=== PATIENT | female | born 1980 | race Caucasian/White ===

== ENCOUNTER → 2016-10-07 | Outpatient (CLI) | payer OTHER ==
[~2016-10-07] MED LIST: ALPR.5T PO; AMIT10TA6 PO; AMIT25TA9 PO; AZIT-21 PO; CPR500T PO; DCS100C PO; HYDR-34 PO; HYDR-3454 PO; HYDR1CAP2; HYDR1TAB PO; IBP600T1 PO; [UNRECOGNIZED DRUG - REMARK] PO
--- NOTE | 2016-10-07 18:32 | Diagnostic Imaging Report ---
INDICATION: Hit door with wrist. History of previous surgery. TECHNIQUE: Three views of the left wrist. CORRELATION STUDY: None FINDINGS: There is diffuse bony demineralization for the patient's age. There is very questionable distortion at the level of the trapezium and trapezoid at the first and second carpometacarpal articulation. Remaining alignment appearing unremarkable. IMPRESSION: 1. Negative for acute bony abnormality about the left wrist. Mild diffuse bony demineralization. Very slight distortion suggested about the first and second carpometacarpal articulations, may be chronic in nature. Dictated by: Dictated on workstation # [id number]
== END ==
LOC: RAD 17:14
PROVIDERS: ATTEND Family Medicine
DX: S60.212A Contusion of left wrist, initial encounter (principal); X58.XXXA Exposure to other specified factors, initial encounter; Y99.8 Other external cause status
CPT/HCPCS: 73110

== ENCOUNTER → 2017-01-15 | Outpatient (CLI) | payer OTHER ==
--- NOTE | 2017-01-15 13:02 | Diagnostic Imaging Report ---
PROCEDURE: MRI lumbar spine. TECHNIQUE: Multiplanar, multisequence MRI of the lumbar spine was performed without contrast. INDICATION: Back pain. FINDINGS: There is straightening of the thoracolumbar junction and lumbar spine curvature which may relate to muscle spasm. The alignment of the posterior spinal line is satisfactory. The vertebral body heights are preserved. There is mild disc desiccation at the L5/S1 level. The cauda equina and conus medullaris appear grossly unremarkable. There is normal marrow signal in the spine. There are perineural cysts seen at the lower thoracic and lumbar spine neural foramina along the exiting spinal nerves up to a centimeter in size. Also, perineural cysts are seen along the exiting nerve roots in the S1 and S2 foramina. 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 T12/L1: No disc herniation, no spinal canal or foraminal stenosis. L1/2: No spinal canal, or foraminal stenosis. L2/3: No disc herniation. There is mild facet hypertrophy. No central canal, lateral recess or foraminal stenosis. L3/4: No disc herniation. There is mild facet hypertrophy. No central canal, lateral recess or foraminal stenosis. L4/5: There is no disc herniation. There is mild facet hypertrophy. No central canal, lateral recess or foraminal stenosis. L5/S1: No disc herniation. There is slight ligamentous flavum thickening. No central canal, lateral recess or foraminal stenosis. IMPRESSION: 1. There is straightening of the spine curvature suggestive of muscle spasm. 2. There are bilateral perineural cysts seen along the exiting nerves at the foramina in the lower thoracic, the lumbar spine and upper sacral spine levels, generally around 1 cm in size. 3. There is no significant spinal canal or neural foraminal stenosis at any level. Dictated by: Dictated on workstation # [id number]
== END ==
LOC: RAD 11:00
PROVIDERS: ATTEND Family Medicine
DX: G96.19 Other disorders of meninges, not elsewhere classified (principal); M54.40 Lumbago with sciatica, unspecified side; G89.29 Other chronic pain
CPT/HCPCS: 72148

== ENCOUNTER → 2017-04-10 | Outpatient (CLI) | payer OTHER ==
--- NOTE | 2017-04-10 17:26 | Diagnostic Imaging Report ---
Three views of the left ankle. INDICATION: Left ankle pain. FINDINGS: No fracture, dislocation, or radiopaque foreign body is seen. The ankle mortise is normal in configuration. There is mild spur along the undersurface of the calcaneus. IMPRESSION: No acute process. Dictated by: Dictated on workstation # [id number]
== END ==
LOC: RAD 12:47
PROVIDERS: ATTEND Nurse Practitioner Family
DX: M25.572 Pain in left ankle and joints of left foot (principal)
CPT/HCPCS: 73610

== ENCOUNTER 2017-04-24 13:45 | Outpatient (RCR) | payer OTHER | END 2017-04-24 14:25 | disposition home or self-care (01) | PROVIDERS: ATTEND Physician Assistant | DX: M54.5 Low back pain (principal) ==

== ENCOUNTER 2017-08-20 13:00 | Outpatient (CLI) | payer OTHER ==
[~2017-08-20] VITALS: Ht 170.2 cm; Wt 54.6 kg
[2017-08-20] MEDS ORDERED: GABA-488 PO (13:05)
[2017-08-20] MEDS ORDERED: MELO7.5T46 PO (13:05)
[2017-08-20] MEDS ORDERED: ALPR0.5T PO (13:05)
[2017-08-20] MEDS ORDERED: AMPH20TA2 PO (13:05)
== END 2017-08-20 13:13 ==
LOC: PREOP 13:00
PROVIDERS: ATTEND Surgery
DX: Z01.818 Encounter for other preprocedural examination (principal); Z12.11 Encounter for screening for malignant neoplasm of colon; Z80.0 Family history of malignant neoplasm of digestive organs

== ENCOUNTER 2017-11-04 12:34 | Emergency (ER) | payer BC, OTHER ==
[~2017-11-04] VITALS: Ht 170.2 cm; Wt 55.3 kg
[~2017-11-04 12:34] MED LIST changes: +ALPR0.5T PO; +AMPH20TA2 PO; +GABA-488 PO; +MELO7.5T46 PO
[2017-11-04] MEDS ORDERED: NS IV 1000 ML 1,000 ML IV ONE (12:39)
[2017-11-04 12:54] LABS: BASOPHILS % (AUTO) 0 % (0-10); EOSINOPHILS % (AUTO) 0 % (0-10); HEMATOCRIT 40 % (35-52); HEMOGLOBIN 13.4 G/DL (11.5-16.0); LYMPHOCYTES # (AUTO) 1.5 X 10^3 (1.0-4.0); LYMPHOCYTES % (AUTO) 10 % (12-44); MEAN CORPUSCULAR HEMOGLOBIN 31 PG (25-34); MEAN CORPUSCULAR HGB CONC 34 G/DL (32-36); MEAN CORPUSCULAR VOLUME 92 FL (80-99); MEAN PLATELET VOLUME 8.7 FL (7.4-10.4); MONOCYTES # (AUTO) 1.4 X 10^3 (0.0-1.0); MONOCYTES % (AUTO) 9 % (0-12); NEUTROPHILS # (AUTO) 12.2 X 10^3 (1.8-7.8); NEUTROPHILS % (AUTO) 81 % (42-75); PLATELET COUNT 353 10^3/uL (130-400); RED BLOOD COUNT 4.34 10^6/uL (4.35-5.85); RED CELL DISTRIBUTION WIDTH 14.9 % (10.0-14.5); WHITE BLOOD COUNT 15.2 10^3/uL (4.3-11.0)
[2017-11-04 13:13] LABS: ALANINE AMINOTRANSFERASE 56 U/L (0-55); ALBUMIN 4.3 GM/DL (3.2-4.5); ALKALINE PHOSPHATASE 85 U/L (40-136); BILIRUBIN,TOTAL 0.4 MG/DL (0.1-1.0); BUN/CREATININE RATIO 15; CALCIUM 9.4 MG/DL (8.5-10.1); CARBON DIOXIDE 27 MMOL/L (21-32); CHLORIDE 101 MMOL/L (98-107); CREATININE SERUM 0.67 MG/DL (0.60-1.30); GFR ESTIMATED > 60; GLUCOSE 112 MG/DL (70-105); POTASSIUM 3.6 MMOL/L (3.6-5.0); SODIUM 138 MMOL/L (135-145); TOTAL PROTEIN 6.8 GM/DL (6.4-8.2)
[2017-11-04 13:18] LABS: ERYTHROCYTE SEDIMENTATION RATE 17 MM/HR (0-20)
[2017-11-04 13:21] LABS: LYMPHOCYTES % (MANUAL) 8 %; MONOCYTES % (MANUAL) 7 %; NEUTROPHILS % (MANUAL) 82 %; RBC MORPH NORMAL; REACTIVE LYMPHOCYTES 3 %
[2017-11-04] MEDS ORDERED: fentaNYL INJECTION 100 MCG/2 ML AMP ONE (13:51)
[2017-11-04] MEDS ORDERED: fentaNYL INJECTION 100 MCG/2 ML AMP IVP ONE ×2 (14:00→16:00)
--- NOTE | 2017-11-04 14:19 | ED Headache ---
General Chief Complaint: Head/Cervical Problems Stated Complaint: MIGRAINE,SPINAL BLOCK LAST Nursing Triage Note: PT AMBULATED TO ROOM 9 PT CO OF MIGRAINE CRABTREE X4 DAYS, PT STATES HAD EPIDURAL INJ LAST FRIDAY, RATES CRABTREE 8.5/10. DENIES NAUSEA, STATES A LITTEL BETTER WHEN LYING DOWN Nursing Sepsis Screen: No Definite Risk Source: patient History of Present Illness Date Seen by Provider: Nov 04, 2017 Time Seen by Provider: 12:00 Initial Comments To ER with a frontal and parietal headache. This began after a lumbar epidural injection by Dr. Richardson, pain management due to some sciatic pain that she was having. This injection occurred on of last week, 5 days ago. She reports a fever up to 100.2 at home. 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 No low back pain, no radicular symptoms, no saddle anesthesia. Timing/Duration: other (2-3 days) Severity/Quality: moderate Location: frontal, parietal Associated Symptoms: No confusion, No fatigue; fever/chills, stiff neck Allergies and Home Medications Allergies Coded Allergies: Penicillins (Unverified Allergy, Unknown, 08/20/17) sulfamethoxazole (Unverified Allergy, Unknown, HIVES, 08/20/17) trimethoprim (Unverified Allergy, Unknown, HIVES, 08/20/17) Home Medications Alprazolam 0.5 Mg Tablet, 0.5 MG PO PRN, (Reported) Dextroamphetamine/Amphetamine 20 Mg Tablet, 20 MG PO BID, (Reported) Gabapentin 300 Mg Capsule, 300 MG PO HS, (Reported) Meloxicam 7.5 Mg Tablet, 7.5 MG PO BID, (Reported) Patient Home Medication List Home Medication List Reviewed: Yes Review of Systems Constitutional: see HPI, chills, fever Eyes: No Symptoms Reported Ears, Nose, Mouth, Throat: no symptoms reported Respiratory: no symptoms reported Cardiovascular: no symptoms reported Genitourinary: no symptoms reported Musculoskeletal: neck pain Skin: no symptoms reported Past Ehwpmsb-Qawkwk-Wprpfx Hx Patient Social History Alcohol Use: Occasionally Uses Recreational Drug Use: No Smoking Status: Current Everyday Smoker Type Used: Cigarettes Recent Foreign Travel: No Contact w/Someone Who Travel: No Recent Infectious Disease Expo: No Recent Hopitalizations: No Immunizations Up To Date Tetanus Booster (TDap): Unknown Seasonal Allergies Seasonal Allergies: Yes Past Medical History Surgeries: Yes (HERNIA REPAIR, TENDON IN WRIST) Gallbladder, Hysterectomy, Tonsillectomy Respiratory: Yes Sleep Apnea Cardiac: No Neurological: Yes Headaches /Migraines 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 Disorders: No Female 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 Disorders: 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 Sexually Transmitted Disease: No HIV/AIDS: No Kidney Stones Gastrointestinal: No Musculoskeletal: Yes Arthritis, Chronic Back Pain Endocrine: No Loss of Vision: Bilateral Hearing Impairment: Denies Cancer: No Psychosocial: Yes Anxiety, Depression Integumentary: No Blood Disorders: No Adverse Reaction/Blood Tranf: No (N/A) Physical Exam Vital Signs Vital Signs - First Documented 11/04/17 12:40 Temp 98.5 Pulse 111 Resp 18 B/P (MAP) 136/89 (105) Pulse Ox 98 O2 Delivery Room Air Capillary Refill : Less Than 3 Seconds General Appearance: WD/WN, no apparent distress HEENT: PERRL/EOMI, normal ENT inspection Neck: other (able to flex her chin to chest) Cardiovascular: regular rate, rhythm, no murmur Respiratory: no respiratory distress, no accessory muscle use Gastrointestinal: normal bowel sounds, non tender Extremities: normal range of motion Psychiatric: alert, oriented x 3 Crainal Nerves: normal hearing, normal speech, PERRL Skin: normal color, warm/dry Progress/Results/Core Measures Results/Orders Lab Results Laboratory Tests Test 11/04/17 12:48 11/04/17 15:19 Range/Units White Blood Count 15.2 H 4.3-11.0 10^3/uL Red Blood Count 4.34 L 4.35-5.85 10^6/uL Hemoglobin 13.4 11.5-16.0 G/DL Hematocrit 40 35-52 % Mean Corpuscular Volume 92 80-99 FL Mean Corpuscular Hemoglobin 31 25-34 PG Mean Corpuscular Hemoglobin Concent 34 32-36 G/DL Red Cell Distribution Width 14.9 H 10.0-14.5 % Platelet Count 353 130-400 10^3/uL Mean Platelet Volume 8.7 7.4-10.4 FL Neutrophils (%) (Auto) 81 H 42-75 % Lymphocytes (%) (Auto) 10 L 12-44 % Monocytes (%) (Auto) 9 0-12 % Eosinophils (%) (Auto) 0 0-10 % Basophils (%) (Auto) 0 0-10 % Neutrophils # (Auto) 12.2 H 1.8-7.8 X 10^3 Lymphocytes # (Auto) 1.5 1.0-4.0 X 10^3 Monocytes # (Auto) 1.4 H 0.0-1.0 X 10^3 Eosinophils # (Auto) 0.0 0.0-0.3 10^3/uL Basophils # (Auto) 0.0 0.0-0.1 10^3/uL Neutrophils % (Manual) 82 % Lymphocytes % (Manual) 8 % Monocytes % (Manual) 7 % Reactive Lymphocytes 3 % Blood Morphology Comment NORMAL Erythrocyte Sedimentation Rate 17 0-20 MM/HR Sodium Level 138 135-145 MMOL/L Potassium Level 3.6 3.6-5.0 MMOL/L Chloride Level 101 98-107 MMOL/L Carbon Dioxide Level 27 21-32 MMOL/L Anion Gap 10 5-14 MMOL/L Blood Urea Nitrogen 10 7-18 MG/DL Creatinine 0.67 0.60-1.30 MG/DL Estimat Glomerular Filtration Rate > 60 BUN/Creatinine Ratio 15 Glucose Level 112 H 70-105 MG/DL Calcium Level 9.4 8.5-10.1 MG/DL Total Bilirubin 0.4 0.1-1.0 MG/DL Aspartate Amino Transf (AST/SGOT) 24 5-34 U/L Alanine Aminotransferase (ALT/SGPT) 56 H 0-55 U/L Alkaline Phosphatase 85 40-136 U/L C-Reactive Protein High Sensitivity 5.01 H 0.00-0.50 MG/DL Total Protein 6.8 6.4-8.2 GM/DL Albumin 4.3 3.2-4.5 GM/DL Serum Test, Qualitative NEGATIVE NEGATIVE CSF Tube Number 4 CSF Appearance CLEAR CSF Color COLORLESS CSF WBC 1 0-5 CELLS CSF RBC 0 0-0 CELLS CSF Lymphocytes % CSF Mononuclear WBCs % CSF Polynuclear WBCs % CSF Glucose 62 50-80 MG/DL CSF Total Protein 32 15-40 MG/DL My Orders Orders - LEE BOWLES APRN Ct Head Wo (11/04/17 13:51) Fentanyl Injection (Sublimaze Injection (11/04/17 14:00) Hcg,Qualitative Serum (11/04/17 13:51) Csf Cell Count (11/04/17 14:40) Csf Glucose (11/04/17 14:40) Csf Total Protein (11/04/17 14:40) Csf Culture (11/04/17 14:40) Anesthesia Consult (11/04/17 14:40) Lidocaine 1% Inj 20 Ml (Xylocaine 1% Inj (11/04/17 15:09) Ua Culture If Indicated (11/04/17 15:27) General/Regular (11/04/17 Lunch) Fentanyl Injection (Sublimaze Injection (11/04/17 16:00) Ns Iv 1000 Ml (Sodium Chloride 0.9%) (11/04/17 16:07) Medications Given in ED Current Medications Medications Dose Ordered Sig/Regla Route Start Time Stop Time Status Last Admin Dose Admin Fentanyl Citrate 50 mcg ONCE ONCE IVP 11/04/17 14:00 11/04/17 14:01 DC 11/04/17 13:55 50 MCG Fentanyl Citrate 50 mcg ONCE ONCE IVP 11/04/17 16:00 11/04/17 16:01 DC 11/04/17 15:57 50 MCG Lidocaine HCl 20 ml STK-MED ONCE .ROUTE 11/04/17 15:09 11/04/17 15:11 DC 11/04/17 15:33 20 ML Sodium Chloride 1,000 ml @ 0 mls/hr Q0M ONCE IV 11/04/17 12:39 11/04/17 12:41 DC 11/04/17 12:55 1,000 MLS/HR Sodium Chloride 1,000 ml @ ud STK-MED ONCE .ROUTE 11/04/17 16:07 11/04/17 16:09 DC 11/04/17 16:13 1,000 MLS/HR Vital Signs/I&O 11/04/17 12:40 Temp 98.5 Pulse 111 Resp 18 B/P (MAP) 136/89 (105) Pulse Ox 98 O2 Delivery Room Air Blood Pressure Mean: 105 Departure Communication (Admissions) 1509-Dr Adwoa peterson reviewed her records. This was a median nerve branch block done on 10/30. This would make a post dural puncture headache less likely Impression Primary Impression: Headache Additional Impression: Leukocytosis Disposition: 01 HOME, SELF-CARE Condition: Stable Departure-Patient Inst. Decision time for Depature: 16:17 Referrals: KEITH BHARDWAJ MD (PCP/Family) Primary Care Physician Patient Instructions: Headache, Adult (DC) Add. Discharge Instructions: 1. Return to ER for any concerns 2. Headache medication as directed 3. All discharge instructions reviewed with patient and/or family. Voiced understanding. Scripts Butalbital/Aspirin/Caffeine (Fiorinal 50-325-40 mg Capsule) 1 Each Capsule 1 EACH PO Q6H PRN for HEADACHE, #10 CAP Prov: LEE BOWLES APRN 11/04/17 LEE BOWLES APRN Nov 04, 2017 14:18
--- NOTE | 2017-11-04 14:49 | Diagnostic Imaging Report ---
PROCEDURE: CT head without contrast. TECHNIQUE: Multiple contiguous axial images were obtained through the brain without the use of intravenous contrast. INDICATION: Frontal headache. There are no prior studies available for comparison. FINDINGS: There does appear to be a peripheral calcified 1.1 x 1.5 cm soft tissue mass in the region of the pineal. This does not have the typical appearance of pineal calcifications however. Even so, I suspect that this is a benign process such as a calcified pineal cyst or perhaps a calcification of pineal itself. If previous exams are available, they would be helpful for comparison. If there are no prior studies, then MRI would be recommended for further study. There is no other mass lesion identified. There is no shift of midline or hemorrhage. The ventricles are not abnormally dilated. There is mild cortical atrophy involving the frontal lobes. This finding is somewhat unusual in a patient this age but not necessarily abnormal. The bone window show no sign of fracture or destructive lesion. The orbits and sinuses were not visualized in their entirety. Where visualized, there is no acute abnormality. IMPRESSION: 1. There is no acute intracranial abnormality noted. 2. The peripherally calcified soft tissue density within the pineal gland is of uncertain etiology although most likely benign. Recommendations as above. 3. These results were discussed with Lui Wright APRN. Dictated by: Dictated on workstation # [id number]
[2017-11-04] MEDS ORDERED: LIDOCAINE 1% INJ 20 ML 20 ML VIAL ONE (15:09)
--- NOTE | 2017-11-04 15:47 | Anesthesia-Procedure Note ---
Procedures/Interventions Procedure Start/Stop/Diagnosis Date of Procedure: Nov 04, 2017 Start Time: 15:15 Referring Physician: Dr Crook/Lui Wright Preprocedural Diagnosis: Headache, Stiff Neck Brief History Anesthesia Note ([id number]) Called to the ED for a Dx Lumbar Puncture. Pt had a pain injection last week ( ) and has been C/O a headache and stiff neck since the procedure. She also has an elevated WBC count. Lui called Dr Richardson's office and she had a medial branch block done. I spoke to the patient about the possibility of a post -dural puncture headache and need for an epidural blood patch vs doing the Dx Lumbar Puncture. +/- of both procedures discussed with patient and Lui and decision to proceed with the Lumbar Puncture was made. Pt agreed with plan. Consent signed. + clear CSF on first pass with an opening pressure of 17 cm CSF noted. ~ 2-3 mL of CSF x 4 vials sent to lab per Lui Wright' orders. Needle removed and sterile bandage applied. Patient tolerated the procedure well. I discussed with her the need for increased fluids and caffeine if positional headache persists. I also discussed again the epidural blood patch and that her symptoms will need to determine her course of action. She understood and agreed with the plan. Will be available if needed. Stop Time: 15:28 Postprocedural Diagnosis: Same Lumbar Puncture Discussed Risk,Benefits: Yes Patient Consents: Yes Position: L4-5, Left Sterile Technique: Yes (Sterile P/D with ChloraPrep.) Opening Pressure: 17 Fluid Color: Clear Spinal Needle Used: Other (22 G Pencan (pencil-point needle)) BRIELLE RAMIREZ DO Nov 04, 2017 15:47
[2017-11-04 15:51] LABS: APPEARANCE,CSF CLEAR; COLOR,CSF COLORLESS
[2017-11-04 15:52] LABS: CSF TUBE NUMBER 4; RED BLOOD CELL,CSF 0 CELLS (0-0); WHITE BLOOD CELL,CSF 1 CELLS (0-5)
[2017-11-04 16:06] LABS: CSF GLUCOSE 62 MG/DL (50-80); CSF TOTAL PROTEIN 32 MG/DL (15-40)
[2017-11-04] MEDS ORDERED: NS IV 1000 ML 1,000 ML ONE (16:07)
[2017-11-04] MEDS ORDERED: BUTA1CAP17 PO (16:17)
[2017-11-04 17:14] LABS: BILIRUBIN,URINE NEGATIVE (NEGATIVE); CLARITY,URINE CLEAR; COLOR,URINE YELLOW; GLUCOSE, URINE (UA) NEGATIVE (NEGATIVE); KETONES,URINE NEGATIVE (NEGATIVE); LEUKOCYTE ESTERASE ,URINE NEGATIVE (NEGATIVE); NITRITE,URINE NEGATIVE (NEGATIVE); PH,URINE 7 (5-9); PROTEIN,URINE NEGATIVE (NEGATIVE); UROBILINOGEN,URINE NORMAL (NORMAL)
[2017-11-04 17:26] LABS: BACTERIA,URINE TRACE /HPF; WBC,URINE RARE /HPF
[2017-11-04 17:35] VITALS: BP 136/89
== END 2017-11-04 17:31 | disposition home or self-care (01) ==
LOC: EDUNIT# 12:34 → ER 12:37
DX: R51 Headache (principal); D72.829 Elevated white blood cell count, unspecified; G47.30 Sleep apnea, unspecified; F41.9 Anxiety disorder, unspecified; F32.9 Major depressive disorder, single episode, unspecified; F17.210 Nicotine dependence, cigarettes, uncomplicated; Z90.710 Acquired absence of both cervix and uterus; Z90.89 Acquired absence of other organs; Z88.0 Allergy status to penicillin; Z87.442 Personal history of urinary calculi; Z88.2 Allergy status to sulfonamides; Z88.8 Allergy status to other drugs, medicaments and biological substances
CPT/HCPCS: 36415; 70450; 80053; 81000; 82945; 84157; 84703; 85007; 85027; 85652; 86141; 86618; 86666; 86668; 86757; 87070; 87205; 89051; 96361; 96374; 96376

== ENCOUNTER → 2017-11-13 | Outpatient (CLI) | payer BC ==
[~2017-11-13] MED LIST changes: +BUTA1CAP17 PO; +GADOBUTROL 7.5 MMOL/7.5 ML (GADAVIST) VIAL IV ONE
--- NOTE | 2017-11-13 12:42 | Diagnostic Imaging Report ---
CLINICAL INDICATION: Patient has frontal pain, nausea and vomiting. Possible pineal gland mass. EXAMINATION: MRI of the brain performed without and with 5 cc of Gadavist IV contrast. Sequences include axial DWI, ADC map, axial gradient echo, axial T2, axial FLAIR, axial T1, axial T1 post IV contrast, coronal T1 fat-sat post IV contrast, and sagittal T1 post IV contrast. COMPARISON: Head CT without contrast dated 11/04/2017. FINDINGS: There is a 1.8 cm x 1.5 cm x 1.8 cm pineal gland cyst which has smooth thin enhancement around it. There is no nodular or masslike enhancement seen. There is no hydrocephalus. There is no evidence of acute cerebral infarct, intracranial hemorrhage, or gross mass effect. There is no abnormal IV contrast enhancement. The brain parenchymal volume appears appropriate for patient's age. There is normal chavarria-white matter distinction. There is no significant midline shift or herniation. The [place] of [place] vascular structures show no gross abnormality as visualized. The pituitary gland, sella, and suprasellar regions are unremarkable as visualized. The basal cisterns are unremarkable. The skull, extracranial soft tissue, and orbits are unremarkable. The paranasal sinuses are unremarkable. There is a small amount of fluid in the left mastoid air cells. 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 There is no nodularity or masslike enhancement seen. There is no hydrocephalus. 2: Small amount of fluid in the left mastoid air cells. Otherwise, the remainder of the MRI of the brain is unremarkable. Dictated by: Dictated on workstation # [id number]
== END ==
LOC: RAD 10:14
PROVIDERS: ATTEND Nurse Practitioner Family
DX: G93.0 Cerebral cysts (principal); G93.89 Other specified disorders of brain
CPT/HCPCS: 70553

== ENCOUNTER → 2018-03-05 | Outpatient (CLI) | payer BC ==
--- NOTE | 2018-03-05 17:25 | Diagnostic Imaging Report ---
PROCEDURE: MR imaging of the brain with and without contrast. TECHNIQUE: Multiplanar, multisequence MR imaging of the brain was performed with and without contrast. INDICATION: Followup of a pineal gland cyst. COMPARISON: Comparison with the 11/13/2017. FINDINGS: No evidence of restricted diffusion. The ventricles and cortical gyral pattern are normal. There is no intracranial hemorrhage. No mass effect. No extra-axial fluid collection. Ventricles appear normal. The mastoid air cells are normal. The basal cisterns and CP angles are normal. The 1.8 x 1.5 x 1.8 cm pineal cyst reported previously with smooth herbert and minimal rim enhancement is again identified. This has not changed in appearance. No new lesions have developed. There are no other enhancing lesions. Cranial nerves appear normal. Mastoid air cells are clear as are the paranasal sinuses. IMPRESSION: 1. Pineal cyst measuring 1.8 cm in greatest dimension with minimal rim enhancement is unchanged in appearance when compared with 11/13/2017. No new lesions have developed. Dictated by: Dictated on workstation # [id number]
== END ==
LOC: RAD 16:29
PROVIDERS: ATTEND Neurological Surgery
DX: E34.8 Other specified endocrine disorders (principal)
CPT/HCPCS: 70553

== ENCOUNTER → 2018-05-19 | Outpatient (CLI) | payer BC ==
[~2018-05-19] MED LIST changes: -GADOBUTROL 7.5 MMOL/7.5 ML (GADAVIST) VIAL IV ONE
== END | disposition home or self-care (01) ==
LOC: PREOP 05:37
PROVIDERS: ATTEND Surgery
DX: Z01.818 Encounter for other preprocedural examination (principal)

== ENCOUNTER 2018-05-26 07:01 | Day surgery (SDC) | payer BC, OTHER ==
[~2018-05-26] VITALS: Ht 170.2 cm; Wt 55.3 kg
[~2018-05-26 07:01] MED LIST changes: +FAMO20TA5 PO; +LACTATED RINGERS 1,000 ML IV ONE; +PREG50CA2 PO
--- OUTSIDE RECORDS SUMMARY | 2018-05-26 07:05 | XMS REPORT | Clinical Summary ---
Author Author [facility] Organization [facility] Address Unknown Phone Unavailable Care Team Providers Care Cake Decorator Name Role Phone Srinivas Monroe MD 21 Srinivas Monroe MD PCP Source Comments Some departments are not documenting in the electronic medical record. If you do not see the information that you expected, contact Release of Information in the Health Information Management department at [phone] for further assistance in locating additional records.[facility] Allergies Comments Active Allergy Reactions Severity Noted Date Penicillins HIVES Medium 02/16/2018 Sulfa (Sulfonamide HIVES Medium 02/16/2018 Antibiotics) Medications End Date Status Medication Sig Dispensed Refills Start Date Active dextroamphetamine-ampheta Take 30 mg by 0 mine(+) (ADDERALL) 30 mg mouth daily tablet Active dextroamphetamine-ampheta Take 15 mg by 0 mine (ADDERALL) 15 mg mouth daily tablet Active pregabalin (LYRICA) 50 mg Take 50 mg by 0 capsule mouth twice daily. Active meloxicam (MOBIC) 15 mg Take 15 mg by 0 tablet mouth daily. Active ALPRAZolam (XANAX) 0.5 mg Take 0.5 mg 0 tablet by mouth daily as needed for Anxiety. Active butalbital/aspirin/caffei Take 1 0 ne(+) (FIORINAL) capsule by 50/325/40 mg capsule mouth every 6 hours as needed for Pain or Headache. Active topiramate (TOPAMAX) 50 Take 50 mg by 0 mg tablet mouth twice daily. 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 Last Filed Vital Signs Time Taken Vital Sign Reading 02/16/2018 12:03 PM CDT Blood Pressure 107/74 02/16/2018 12:03 PM CDT Pulse 96 - Temperature - - Respiratory Rate - - Oxygen Saturation - - Inhaled Oxygen - Concentration 02/16/2018 12:03 PM CDT Weight 57.2 kg (126 lb) 02/16/2018 12:03 PM CDT Height 170.2 cm (5' 7") 02/16/2018 12:03 PM CDT Body Mass Index 19.73 Plan of Treatment Health Maintenance Due Date Last Done Comments PHYSICAL (COMPREHENSIVE) 1988 EXAM HIV SCREENING 1996 DTAP/TDAP VACCINES (1 - 1999 Tdap) CERVICAL CANCER SCREENING 2011 INFLUENZA VACCINE 12/03/2017 Results Not on filefrom Last 3 Months Insurance Payer Benefit Subscriber ID Type Phone Address Plan / Group [facility] xxxxxxxxxxxxxxx PPO PREF CARE Advance Directives Patient has advance care planning documents on file. For more information, please contact: [facility] [address] [place] [address]
--- OUTSIDE RECORDS SUMMARY | 2018-05-26 07:05 | XMS REPORT | Encounter Summary ---
Author Author [facility] Organization [facility] Address Unknown Phone Unavailable Care Team Providers Care Supervisor Plate Forming Name Role Phone Srinivas Monroe MD 21 Srinivas Monroe MD PCP Encounter Details Care Team Description Date Type Department Gardenia Fitch MD [address] [facility] [address] [place] [address] Pre-procedure lab exam (Primary Dx) 02/27/2018 Orders Only [facility] - Neurosurgery [facility] [address] [place] [address] Social History Date Tobacco Use Types Packs/Day Years Used Current Every Day Smoker Cigarettes 0.5 Smokeless Tobacco: Never Used Alcohol Use Drinks/Week oz/Week Comments Yes socially Sex Assigned at Date Recorded Not on file Industry Job Start Date Occupation Not on file Not on file Not on file Travel End Travel History Travel Start No recent travel history available. as of this encounter Plan of Treatment Order Schedule Name Priority Associated Diagnoses Expected: 02/27/2018 (Approximate), Expires: 02/27/2019 ORBITS COMPLETE 4 VIEWS Routine Pre-procedure lab exam as of this encounter Visit Diagnoses Diagnosis Pre-procedure lab exam - Primary Pre-procedural laboratory examination in this encounter
--- OUTSIDE RECORDS SUMMARY | 2018-05-26 07:06 | XMS REPORT | Continuity of Care Document ---
Author Author [facility] Organization [facility] Address Unknown Phone Unavailable Allergies Active Description Code Type Severity Reaction Onset Reported/Identified Relationship to Patient Clinical Status Yes Penicillins [id number] Drug Allergy Unknown N/A 08/20/2017 Yes sulfamethoxazole [id number] Drug Allergy Unknown HIVES 08/20/2017 Yes trimethoprim [id number] Drug Allergy Unknown HIVES 08/20/2017 Medications There is no data. Problems Date Dx Coded Attending Type Code Diagnosis Diagnosed By 04/03/1434 KAEL FERNANDEZ SNOWBLOWER MECHANIC-C Ot Z47.89 ENCOUNTER FOR OTHER ORTHOPEDIC AFTERCARE 04/03/1599 KAEL FERNANDEZ SNOWBLOWER MECHANIC-C Ot Z47.89 ENCOUNTER FOR OTHER ORTHOPEDIC AFTERCARE 10/01/2012 JOSE RAFAEL DANIELS, LINDA Mcmanus Ot 305.1 10/01/2012 JOSE RAFAEL DANIELS, LINDA Mcmanus Ot 574.00 10/01/2012 JOSE RAFAEL DANIELS, LINDA Mcmanus Ot 575.3 12/30/2012 WALTER SERRA Ot 575.0 01/27/2014 BRENNEN PEREZ DO Ot 553.20 VENTRAL HERNIA NOS 08/04/2014 Ot 575.0 11/30/2014 BRENNEN PEREZ DO Ot 553.20 11/30/2014 BRENNEN PEREZ DO Ot 717.7 11/30/2014 BRENNEN PEREZ DO Ot V72.63 11/30/2014 BRENNEN PEREZ DO Ot V74.8 11/30/2014 JULIAN OSBORNE DO Ot 486 PNEUMONIA, ORGANISM NOS 11/30/2014 JULIAN OSBORNE DO Ot 780.60 FEVER, UNSPECIFIED 12/22/2014 VONDA JONES MD Ot 786.50 CHEST PAIN NOS 12/22/2014 VONDA JONES MD Ot 789.00 ABDOMINAL PAIN, UNSPECIFIED SITE 08/08/2015 BRENNEN PEREZ DO Ot 553.20 08/08/2015 BRENNEN PEREZ DO Ot 717.7 08/08/2015 PEREZ DOBRENNEN D Ot V72.63 08/08/2015 PEREZ BRENNEN SPARKS D Ot V74.8 09/12/2015 PEREZ HARRIS SPARKSSU Villafuerte Ot 553.20 VENTRAL HERNIA NOS 09/12/2015 PEREZ DO, BRENNEN D Ot 717.7 CHONDROMALACIA PATELLAE 09/12/2015 PEREZ DOBRENNEN D Ot V72.63 PRE-PROCEDURAL LABORATORY EXAMINATION 09/12/2015 PEREZ BRENNEN SPARKS Ot V74.8 SCREEN-BACTERIAL DIS NEC 09/13/2015 MORRO SPARKS, ONEIDA Laurent Ot S63.092A OTHER SUBLUXATION OF LEFT WRIST AND HAND 09/13/2015 MORRO SPARKS, ONEIDA Laurent Ot S63.591A OTHER SPECIFIED SPRAIN OF RIGHT WRIST, I 09/13/2015 MORRO SPARKS, ONEIDA Laurent Ot S63.092A OTHER SUBLUXATION OF LEFT WRIST AND HAND 09/13/2015 MORRO SPARKS, ONEIDA Laurent Ot S63.591A OTHER SPECIFIED SPRAIN OF RIGHT WRIST, I 09/14/2015 LUDMILANEMAR DO, ONEIDA Laurent Ot S63.092A OTHER SUBLUXATION OF LEFT WRIST AND HAND 09/14/2015 MCNEMAR DO, ONEIDA Laurent Ot S63.591A OTHER SPECIFIED SPRAIN OF RIGHT WRIST, I 10/06/2015 LUDMILANEMMARK DO, ONEIDA Laurent Ot S63.092A OTHER SUBLUXATION OF LEFT WRIST AND HAND 10/06/2015 MCNEMAR DO, ONEIDA Laurent Ot S63.591A OTHER SPECIFIED SPRAIN OF RIGHT WRIST, I 11/02/2015 MORRO DO, ONEIDA Laurent Ot S63.092A OTHER SUBLUXATION OF LEFT WRIST AND HAND 11/02/2015 MCNEMAR DOONEIDA Ot S63.591A OTHER SPECIFIED SPRAIN OF RIGHT WRIST, I 01/02/2016 LUDMILANEMMARK DOONEIDA Ot S63.092A OTHER SUBLUXATION OF LEFT WRIST AND HAND 01/02/2016 LUDMILANEMAR ONEIDA SPARKS Ot S63.591A OTHER SPECIFIED SPRAIN OF RIGHT WRIST, I 01/18/2016 KAEL FERNANDEZ SNOWBLOWER MECHANIC-C Ot Z47.89 ENCOUNTER FOR OTHER ORTHOPEDIC AFTERCARE 01/18/2016 KAEL FERNANDEZ SNOWBLOWER MECHANIC-C Ot Z47.89 ENCOUNTER FOR OTHER ORTHOPEDIC AFTERCARE 02/02/2016 MARY FERNANDEZY S SNOWBLOWER MECHANIC-C Ot Z47.89 ENCOUNTER FOR OTHER ORTHOPEDIC AFTERCARE 03/15/2016 KAEL FERNANDEZ SNOWBLOWER MECHANIC-C Ot Z47.89 ENCOUNTER FOR OTHER ORTHOPEDIC AFTERCARE 10/07/2016 ONEIDA HOOKER DO Ot S63.092A OTHER SUBLUXATION OF LEFT WRIST AND HAND 10/07/2016 ONEIDA HOOKER DO Ot S63.591A OTHER SPECIFIED SPRAIN OF RIGHT WRIST, I 10/30/2016 LASHAE DANIELS, KEITH [place] Ot S60.212A CONTUSION OF LEFT WRIST, INITIAL ENCOUNT 10/30/2016 KEITH BHARDWAJ MD Ot X58.XXXA EXPOSURE TO OTHER SPECIFIED FACTORS, INI 10/30/2016 LASHAE DANIELS, KEITH [place] Ot Y99.8 OTHER EXTERNAL CAUSE STATUS 11/20/2016 CHRIS DOBRENNEN Ot 553.20 VENTRAL HERNIA NOS 11/20/2016 PEREZ DO, BRENNEN D Ot 717.7 CHONDROMALACIA PATELLAE 11/20/2016 BRENNEN PEREZ DO Ot V72.63 PRE-PROCEDURAL LABORATORY EXAMINATION 11/20/2016 HARRIS PEREZ DOTT Christo Ot V74.8 SCREEN-BACTERIAL DIS NEC 11/21/2016 CHRIS DO BRENNEN D Ot 553.20 VENTRAL HERNIA NOS 11/21/2016 CHRIS DO, BRENNEN D Ot 717.7 CHONDROMALACIA PATELLAE 11/21/2016 HARRIS PEREZ DOTT D Ot V72.63 PRE-PROCEDURAL LABORATORY EXAMINATION 11/21/2016 HARRIS PEREZ DOTT D Ot V74.8 SCREEN-BACTERIAL DIS NEC 12/05/2016 CHRIS DOHARRISTT D Ot 553.20 VENTRAL HERNIA NOS 12/05/2016 PEREZ DO, BRENNEN D Ot 717.7 CHONDROMALACIA PATELLAE 12/05/2016 CHRIS DO BRENNEN D Ot V72.63 PRE-PROCEDURAL LABORATORY EXAMINATION 12/05/2016 HARRIS PEREZ DOTT D Ot V74.8 SCREEN-BACTERIAL DIS NEC 01/13/2017 CHRIS SPARKS, BRENNEN D Ot 553.20 VENTRAL HERNIA NOS 01/13/2017 PEREZ DO, BRENNEN D Ot 717.7 CHONDROMALACIA PATELLAE 01/13/2017 HARRIS PEREZ DOTT Christo Ot V72.63 PRE-PROCEDURAL LABORATORY EXAMINATION 01/13/2017 BRENNEN PEREZ DO Ot V74.8 SCREEN-BACTERIAL DIS NEC 01/13/2017 ONEIDA HOOKER DO Ot S63.092A OTHER SUBLUXATION OF LEFT WRIST AND HAND 01/13/2017 ONEIDA HOOKER DO Ot S63.591A OTHER SPECIFIED SPRAIN OF RIGHT WRIST, I 01/13/2017 KEITH BHARDWAJ MD Ot S60.212A CONTUSION OF LEFT WRIST, INITIAL ENCOUNT 01/13/2017 KEITH BHARDWAJ MD Ot X58.XXXA EXPOSURE TO OTHER SPECIFIED FACTORS, INI 01/13/2017 KEITH BHARDWAJ MD Ot Y99.8 OTHER EXTERNAL CAUSE STATUS 01/15/2017 BRENNEN PEREZ DO Ot 553.20 VENTRAL HERNIA NOS 01/15/2017 BRENNEN PEREZ DO Ot 717.7 CHONDROMALACIA PATELLAE 01/15/2017 BRENNEN PEREZ DO Ot V72.63 PRE-PROCEDURAL LABORATORY EXAMINATION 01/15/2017 BRENNEN PEREZ DO Ot V74.8 SCREEN-BACTERIAL DIS NEC 02/05/2017 KEITH BHARDWAJ MD Ot G89.29 OTHER CHRONIC PAIN 02/05/2017 KEITH BHARDWAJ MD Ot G96.19 OTHER DISORDERS OF MENINGES, NOT ELSEWHE 02/05/2017 KEITH BHARDWAJ MD Ot M54.40 LUMBAGO WITH SCIATICA, UNSPECIFIED SIDE 03/05/2017 GOLDIE PEDRAZA Ot M54.5 LOW BACK PAIN 04/07/2017 GOLDIE PEDRAZA Ot M54.5 LOW BACK PAIN 04/11/2017 CHULA PAULA APRN Ot M25.572 PAIN IN LEFT ANKLE AND JOINTS OF LEFT FO 04/24/2017 GOLDIE PEDRAZA Ot M54.5 LOW BACK PAIN 05/01/2017 CHULA PAULA APRN Ot M25.572 PAIN IN LEFT ANKLE AND JOINTS OF LEFT FO 08/15/2017 BRENNEN PEREZ DO Ot 553.20 VENTRAL HERNIA NOS 08/15/2017 BRENNEN PEREZ DO Ot 717.7 CHONDROMALACIA PATELLAE 08/15/2017 BRENNEN PEREZ DO Ot V72.63 PRE-PROCEDURAL LABORATORY EXAMINATION 08/15/2017 BRENNEN PEREZ DO Ot V74.8 SCREEN-BACTERIAL DIS NEC 08/15/2017 KEITH BHARDWAJ MD Ot G89.29 OTHER CHRONIC PAIN 08/15/2017 KEITH BHARDWAJ MD Ot G96.19 OTHER DISORDERS OF MENINGES, NOT ELSEWHE 08/15/2017 KEITH BHARDWAJ MD Ot M54.40 LUMBAGO WITH SCIATICA, UNSPECIFIED SIDE 08/15/2017 CHULA PAULA APRN Ot M25.572 PAIN IN LEFT ANKLE AND JOINTS OF LEFT FO 08/19/2017 BRENNEN PEREZ DO Ot 553.20 VENTRAL HERNIA NOS 08/19/2017 BRENNEN PEREZ DO Ot 717.7 CHONDROMALACIA PATELLAE 08/19/2017 BRENNEN PEREZ DO Ot V72.63 PRE-PROCEDURAL LABORATORY EXAMINATION 08/19/2017 BRENNEN PEREZ DO Ot V74.8 SCREEN-BACTERIAL DIS NEC 08/19/2017 KEITH BHARDWAJ MD Ot G89.29 OTHER CHRONIC PAIN 08/19/2017 KEITH BHARDWAJ MD Ot G96.19 OTHER DISORDERS OF MENINGES, NOT ELSEWHE 08/19/2017 KEITH BHARDWAJ MD Ot M54.40 LUMBAGO WITH SCIATICA, UNSPECIFIED SIDE 08/19/2017 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[employer] Ot M25.572 PAIN IN LEFT ANKLE AND JOINTS OF LEFT FO 08/20/2017 Ot 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 08/20/2017 Ot V16.0 FAMILY HX-GI MALIGNANCY 08/20/2017 Ot 575.0 ACUTE CHOLECYSTITIS 08/20/2017 BRENNEN PEREZ DO Ot Z01.818 ENCOUNTER FOR OTHER PREPROCEDURAL EXAMIN 08/20/2017 BRENNEN PEREZ DO Ot Z12.11 ENCOUNTER FOR SCREENING FOR MALIGNANT NE 08/20/2017 BRENNEN PEREZ DO Ot Z80.0 FAMILY HISTORY OF MALIGNANT NEOPLASM OF 08/20/2017 BRENNEN PEREZ DO Ot Z01.818 ENCOUNTER FOR OTHER PREPROCEDURAL EXAMIN 08/20/2017 BRENNEN PEREZ DO Ot Z12.11 ENCOUNTER FOR SCREENING FOR MALIGNANT NE 08/20/2017 BRENNEN PEREZ DO Ot Z80.0 FAMILY HISTORY OF MALIGNANT NEOPLASM OF 11/04/2017 ONEIDA HOOKER DO Ot S63.092A OTHER SUBLUXATION OF LEFT WRIST AND HAND 11/04/2017 ONEIDA HOOKER DO Ot S63.591A OTHER SPECIFIED SPRAIN OF RIGHT WRIST, I 11/04/2017 LASHAE DANIELS, KEITH R Ot S60.212A CONTUSION OF LEFT WRIST, INITIAL ENCOUNT 11/04/2017 LASHAE DANIELS, KEITH R Ot X58.XXXA EXPOSURE TO OTHER SPECIFIED FACTORS, INI 11/04/2017 LASHAE DANIELS, KEITH R Ot Y99.8 OTHER EXTERNAL CAUSE STATUS 11/04/2017 LEE BOWLES APRN Ot D72.829 ELEVATED WHITE BLOOD CELL COUNT, UNSPECI 11/04/2017 LEE BOWLES APRN Ot F17.210 NICOTINE DEPENDENCE, CIGARETTES, UNCOMPL 11/04/2017 LEE BOWLES APRN Ot F32.9 MAJOR DEPRESSIVE DISORDER, SINGLE EPISOD 11/04/2017 LEE BOWLES APRN Ot F41.9 ANXIETY DISORDER, UNSPECIFIED 11/04/2017 LEE BOWLES APRN Ot G47.30 SLEEP APNEA, UNSPECIFIED 11/04/2017 LEE BOWLES APRN Ot R51 HEADACHE 11/04/2017 LEE BOWLES APRN Ot Z87.442 PERSONAL HISTORY OF URINARY CALCULI 11/04/2017 LEE BOWLES APRN Ot Z88.0 ALLERGY STATUS TO PENICILLIN 11/04/2017 LEE BOWLES APRN Ot Z88.2 ALLERGY STATUS TO SULFONAMIDES STATUS 11/04/2017 LEE BOWLES APRN Ot Z88.8 ALLERGY STATUS TO OTH DRUG/MEDS/BIOL SUB 11/04/2017 LEE BOWLES APRN Ot Z90.710 ACQUIRED ABSENCE OF BOTH CERVIX AND UTER 11/04/2017 LEE BOWLES APRN Ot Z90.89 ACQUIRED ABSENCE OF OTHER ORGANS 11/06/2017 LEE BOWLES APRN Ot D72.829 ELEVATED WHITE BLOOD CELL COUNT, UNSPECI 11/06/2017 LEE BOWLES APRN Ot F17.210 NICOTINE DEPENDENCE, CIGARETTES, UNCOMPL 11/06/2017 LEE BOWLES APRN Ot F32.9 MAJOR DEPRESSIVE DISORDER, SINGLE EPISOD 11/06/2017 LEE BOWLES APRN Ot F41.9 ANXIETY DISORDER, UNSPECIFIED 11/06/2017 LEE BOWLES APRN Ot G47.30 SLEEP APNEA, UNSPECIFIED 11/06/2017 LEE BOWLES APRN Ot R51 HEADACHE 11/06/2017 LEE BOWLES APRN Ot Z87.442 PERSONAL HISTORY OF URINARY CALCULI 11/06/2017 LEE BOWLES APRN Ot Z88.0 ALLERGY STATUS TO PENICILLIN 11/06/2017 LEE BOWLES APRN Ot Z88.2 ALLERGY STATUS TO SULFONAMIDES STATUS 11/06/2017 LEE BOWLES APRN Ot Z88.8 ALLERGY STATUS TO OTH DRUG/MEDS/BIOL SUB 11/06/2017 LEE BOWLES APRN Ot Z90.710 ACQUIRED ABSENCE OF BOTH CERVIX AND UTER 11/06/2017 LEE BOWLES APRN Ot Z90.89 ACQUIRED ABSENCE OF OTHER ORGANS 11/12/2017 BRENNEN PEREZ DO Ot 553.20 VENTRAL HERNIA NOS 11/12/2017 BRENNEN PEREZ DO Ot 717.7 CHONDROMALACIA PATELLAE 11/12/2017 BRENNEN PEREZ DO Ot V72.63 PRE-PROCEDURAL LABORATORY EXAMINATION 11/12/2017 BRENNEN PEREZ DO Ot V74.8 SCREEN-BACTERIAL DIS NEC 11/12/2017 LASHAE DANIELS, KEITH [place] Ot G89.29 OTHER CHRONIC PAIN 11/12/2017 LASHAE DANIELS, KEITH [place] Ot G96.19 OTHER DISORDERS OF MENINGES, NOT ELSEWHE 11/12/2017 LASHAE DANIELS, KEITH [place] Ot M54.40 LUMBAGO WITH SCIATICA, UNSPECIFIED SIDE 11/12/2017 CHULA PAULA APRN Ot M25.572 PAIN IN LEFT ANKLE AND JOINTS OF LEFT FO 11/14/2017 CHULA PAULA APRN Ot 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 11/14/2017 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[employer] Ot G93.89 OTHER SPECIFIED DISORDERS OF BRAIN 03/02/2018 BRENNEN PEREZ DO Ot 553.20 VENTRAL HERNIA NOS 03/02/2018 BRENNEN PEREZ DO Ot 717.7 CHONDROMALACIA PATELLAE 03/02/2018 BRENNEN PEREZ DO Ot V72.63 PRE-PROCEDURAL LABORATORY EXAMINATION 03/02/2018 BRENNEN PEREZ DO Ot V74.8 SCREEN-BACTERIAL DIS NEC 03/02/2018 KEITH BHARDWAJ MD Ot G89.29 OTHER CHRONIC PAIN 03/02/2018 KEITH BHARDWAJ MD Ot G96.19 OTHER DISORDERS OF MENINGES, NOT ELSEWHE 03/02/2018 KEITH BHARDWAJ MD Ot M54.40 LUMBAGO WITH SCIATICA, UNSPECIFIED SIDE 03/02/2018 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[employer] Ot M25.572 PAIN IN LEFT ANKLE AND JOINTS OF LEFT FO 03/02/2018 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[employer] Ot 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 03/02/2018 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[employer] Ot G93.89 OTHER SPECIFIED DISORDERS OF BRAIN 03/06/2018 LESLIE PAULSON MD Ot E34.8 OTHER SPECIFIED ENDOCRINE DISORDERS 04/12/2018 SOUTH[place] BRENNEN SPARKS Ot 553.20 VENTRAL HERNIA NOS 04/12/2018 SOU[place] BRENNEN SPARKS Ot 717.7 CHONDROMALACIA PATELLAE 04/12/2018 PEREZ BRENNEN SPARKS Ot V72.63 PRE-PROCEDURAL LABORATORY EXAMINATION 04/12/2018 SOU[place] BRENNEN SPARKS Ot V74.8 SCREEN-BACTERIAL DIS NEC 04/12/2018 KEITH BHARDWAJ MD Ot G89.29 OTHER CHRONIC PAIN 04/12/2018 KEITH BHARDWAJ MD Ot G96.19 OTHER DISORDERS OF MENINGES, NOT ELSEWHE 04/12/2018 KEITH BHARDWAJ MD Ot M54.40 LUMBAGO WITH SCIATICA, UNSPECIFIED SIDE 04/12/2018 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[employer] Ot M25.572 PAIN IN LEFT ANKLE AND JOINTS OF LEFT FO 04/12/2018 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[employer] Ot 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 04/12/2018 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[employer] Ot G93.89 OTHER SPECIFIED DISORDERS OF BRAIN 04/12/2018 LESLIE PAULSON MD Ot E34.8 OTHER SPECIFIED ENDOCRINE DISORDERS 05/19/2018 SOU[place] BRENNEN SPARKS Ot 553.20 VENTRAL HERNIA NOS 05/19/2018 S[place] BRENNEN SPARKS Ot 717.7 CHONDROMALACIA PATELLAE 05/19/2018 S[place] BRENNEN SPARKS Ot V72.63 PRE-PROCEDURAL LABORATORY EXAMINATION 05/19/2018 PEREZBRENNEN RAE DO Ot V74.8 SCREEN-BACTERIAL DIS NEC 05/19/2018 LASHAE DANIELS, KEITH [place] Ot G89.29 OTHER CHRONIC PAIN 05/19/2018 KEITH BHARDWAJ MD Ot G96.19 OTHER DISORDERS OF MENINGES, NOT ELSEWHE 05/19/2018 LASHAE DANIELS, KEITH [place] Ot M54.40 LUMBAGO WITH SCIATICA, UNSPECIFIED SIDE 05/19/2018 CHULA PAULA APRN Ot M25.572 PAIN IN LEFT ANKLE AND JOINTS OF LEFT FO 05/19/2018 CHULA PAULA APRN Ot 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 Results Test Result Range Complete blood count (CBC) with automated white blood cell (WBC) differential - 11/04/17 12:48 Blood leukocytes automated count (number/volume) 15.2 10*3/uL 4.3-11.0 Blood erythrocytes automated count (number/volume) 4.34 10*6/uL 4.35-5.85 Venous blood hemoglobin measurement (mass/volume) 13.4 g/dL 11.5-16.0 Blood hematocrit (volume fraction) 40 % 35-52 Automated erythrocyte mean corpuscular volume 92 [foz_us] 80-99 Automated erythrocyte mean corpuscular hemoglobin (mass per erythrocyte) 31 pg 25-34 Automated erythrocyte mean corpuscular hemoglobin concentration measurement ( mass/volume) 34 g/dL 32-36 Automated erythrocyte distribution width ratio 14.9 % 10.0-14.5 Automated blood platelet count (count/volume) 353 10*3/uL 130-400 Automated blood platelet mean volume measurement 8.7 [foz_us] 7.4-10.4 Automated blood neutrophils/100 leukocytes 81 % 42-75 Automated blood lymphocytes/100 leukocytes 10 % 12-44 Blood monocytes/100 leukocytes 9 % 0-12 Automated blood eosinophils/100 leukocytes 0 % 0-10 Automated blood basophils/100 leukocytes 0 % 0-10 Blood neutrophils automated count (number/volume) 12.2 10*3 1.8-7.8 Blood lymphocytes automated count (number/volume) 1.5 10*3 1.0-4.0 Blood monocytes automated count (number/volume) 1.4 10*3 0.0-1.0 Automated eosinophil count 0.0 10*3/uL 0.0-0.3 Automated blood basophil count (count/volume) 0.0 10*3/uL 0.0-0.1 Comprehensive metabolic panel - 11/04/17 12:48 Serum or plasma sodium measurement (moles/volume) 138 mmol/L 135-145 Serum or plasma potassium measurement (moles/volume) 3.6 mmol/L 3.6-5.0 Serum or plasma chloride measurement (moles/volume) 101 mmol/L 98-107 Carbon dioxide 27 mmol/L 21-32 Serum or plasma anion gap determination (moles/volume) 10 mmol/L 5-14 Serum or plasma urea nitrogen measurement (mass/volume) 10 mg/dL 7-18 Serum or plasma creatinine measurement (mass/volume) 0.67 mg/dL 0.60-1.30 Serum or plasma urea nitrogen/creatinine mass ratio 15 NRG Serum or plasma creatinine measurement with calculation of estimated glomerular filtration rate > NRG Serum or plasma glucose measurement (mass/volume) 112 mg/dL 70-105 Serum or plasma calcium measurement (mass/volume) 9.4 mg/dL 8.5-10.1 Serum or plasma total bilirubin measurement (mass/volume) 0.4 mg/dL 0.1-1.0 Serum or plasma alkaline phosphatase measurement (enzymatic activity/volume) 85 U/L 40-136 Serum or plasma aspartate aminotransferase measurement (enzymatic activity/ volume) 24 U/L 5-34 Serum or plasma alanine aminotransferase measurement (enzymatic activity/volume ) 56 U/L 0-55 Serum or plasma protein measurement (mass/volume) 6.8 g/dL 6.4-8.2 Serum or plasma albumin measurement (mass/volume) 4.3 g/dL 3.2-4.5 Serum or plasma C reactive protein measurement (mass/volume) - 11/04/17 12:48 Serum or plasma C reactive protein measurement (mass/volume) 5.01 mg /dL 0.00-0.50 Blood manual differential performed detection - 11/04/17 12:48 Blood monocytes/100 leukocytes 7 % NRG Manual blood segmented neutrophils/100 leukocytes 82 % NRG Manual blood lymphocytes/100 leukocytes 8 % NRG Blood lymphocytes variant/100 leukocytes 3 % NRG Blood erythrocyte morphology finding identification NORMAL NRG Erythrocyte sedimentation rate by westergren method - 11/04/17 12:48 Erythrocyte sedimentation rate by westergren method 17 mm 0-20 Serum or plasma choriogonadotropin ( test) detection - 11/04/17 12:48 Serum or plasma choriogonadotropin ( test) detection NEGATIVE NEGATIVE Tick identification panel - 11/04/17 14:35 Serum Ehrlichia chaffeensis IgG antibody detection 1:32 <1:16 Serum Ehrlichia chaffeensis IgM antibody detection <1:10 <1:10 Serum Rickettsia rickettsii IgG antibody assay (units/volume) < <1:16 Alfred spotted fever panel < <1:10 Francisella tularensis antibody assay <1:20 NRG LYME AB G M 0.05 % 0.00-0.89 Interpretation of Lyme disease antibody assay Negative Negative Cerebrospinal fluid cell count - 11/04/17 15:19 Cerebrospinal fluid appearance description CLEAR NRG Cerebrospinal fluid color identification COLORLESS NRG Cerebrospinal fluid leukocytes count (number/volume) 1 % 0-5 Cerebrospinal fluid erythrocytes count (number/volume) 0 % 0-0 Manual cerebrospinal fluid lymphocytes/100 leukocytes TNP NRG Manual cerebrospinal fluid mononuclear cells/100 leukocytes TNP NRG Manual cerebrospinal fluid polymorphonuclear cells/100 leukocytes TNP NRG Cerebrospinal fluid cell count on specimen from last tube collected 4 NRG Cerebrospinal fluid glucose measurement (mass/volume) - 11/04/17 15:19 Cerebrospinal fluid glucose measurement (mass/volume) 62 mg/dL 50-80 Cerebrospinal fluid protein measurement (mass/volume) - 11/04/17 15:19 Cerebrospinal fluid protein measurement (mass/volume) 32 mg/dL 15-40 Gram stain microscopy - 11/04/17 15:19 GRAM STAIN RESULT NO WBC'S OR BACTERIA OBSERVED NRG Bacterial cerebrospinal fluid culture - 11/04/17 15:19 Bacterial cerebrospinal fluid culture NG NRG Complete urinalysis with reflex to culture - 11/04/17 16:58 Urine color determination YELLOW NRG Urine clarity determination CLEAR NRG Urine pH measurement by test strip 7 5-9 Specific gravity of urine by test strip 1.010 1.016- 1.022 Urine protein assay by test strip, semi-quantitative NEGATIVE NEGATIVE Urine glucose detection by automated test strip NEGATIVE NEGATIVE Erythrocytes detection in urine sediment by light microscopy 1+ NEGATIVE Urine ketones detection by automated test strip NEGATIVE NEGATIVE Urine nitrite detection by test strip NEGATIVE NEGATIVE Urine total bilirubin detection by test strip NEGATIVE NEGATIVE Urine urobilinogen measurement by automated test strip (mass/volume) NORMAL NORMAL Urine leukocyte esterase detection by dipstick NEGATIVE NEGATIVE Automated urine sediment erythrocyte count by microscopy (number/high power field) [HPF] NRG Automated urine sediment leukocyte count by microscopy (number/high power field ) RARE NRG Bacteria detection in urine sediment by light microscopy TRACE NRG Squamous epithelial cells detection in urine sediment by light microscopy 2-5 NRG Crystals detection in urine sediment by light microscopy NONE NRG Casts detection in urine sediment by light microscopy NONE NRG Mucus detection in urine sediment by light microscopy NEGATIVE NRG Complete urinalysis with reflex to culture NO NRG Encounters ACCT No. Visit Date/Time Discharge Status Pt. Type Provider Facility Loc./Unit Complaint [id number] 05/19/2018 05:37:00 05/19/2018 23:59:59 CLS Outpatient BRENNEN PEREZ DO [facility] PREOP COLONOSCOPY/EGD [id number] 03/05/2018 17:00:00 03/05/2018 23:59:59 CLS Outpatient LESLIE PAULSON MD [facility] RAD PINEAL GLAND CYST [id number] 11/13/2017 10:14:00 11/13/2017 23:59:59 CLS Outpatient 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[employer] [facility] RAD MASS OF [place] [id number] 11/04/2017 12:37:00 11/04/2017 17:31:00 DIS Emergency LEE BOWLES DETECTIVE [employer] [facility] ER MIGRAINE,SPINAL BLOCK LAST THURS [id number] 08/26/2017 12:45:00 08/26/2017 23:59:59 CLS Preadmit PEREZ BRENNEN SPARKS [facility] ENDO SCREENING/EPIGASTRIC ABD PAIN [id number] 08/20/2017 13:00:00 08/20/2017 13:13:00 DIS Outpatient BRENNEN PEREZ DO [facility] PREOP COLONOSCOPY [id number] 04/24/2017 13:45:00 04/24/2017 14:25:00 DIS Outpatient GOLDIE PEDRAZA [facility] REHAB LUMBAR STRAIN [id number] 04/10/2017 12:47:00 04/10/2017 23:59:59 CLS Outpatient CHULA PAULA APRN [facility] RAD ACUTE LEFT ANKLE PAIN [id number] 01/15/2017 11:00:00 01/15/2017 23:59:59 CLS Outpatient KEITH BHARDWAJ MD [facility] RAD M54.40 [id number] 10/07/2016 17:14:00 10/07/2016 23:59:59 CLS Outpatient KEITH BHARDWAJ MD [facility] RAD CONTUSION OF LT WRIST [id number] 02/29/2016 13:12:00 03/15/2016 14:35:00 DIS Outpatient KAEL FERNANDEZ [employer] MECHANIC-C [facility] REHAB S/P ECU RECONSTRUCTION ; ECTR [id number] 01/23/2016 13:13:00 02/02/2016 16:00:00 DIS Outpatient KAEL FERNANDEZ [employer] MECHANIC-C [facility] REHAB S/P ECU RECONSTRUCTION ; ECTR [id number] 09/12/2015 09:22:00 09/12/2015 23:59:59 CLS Outpatient ONEIDA HOOKER DO [facility] RAD LT WRIST PAIN [id number] 06/14/2015 16:49:00 06/14/2015 23:59:59 CLS Outpatient MORIAH GONZALEZ [facility] QUICK [id number] 12/22/2014 15:30:00 12/22/2014 15:43:00 DIS Emergency VONDA JONES MD [facility] ER UPPER ABD/LOWER CHEST PAIN [id number] 11/30/2014 19:55:00 11/30/2014 23:57:00 DIS Emergency JULIAN OSBORNE DO [facility] ER FEVER,ABD PAIN,CHILLS [id number] 01/27/2014 06:00:00 01/27/2014 13:59:00 DIS Outpatient BRENNEN PEREZ DO [facility] SDC VENTAL HERNIA [id number] 01/24/2014 08:20:00 01/24/2014 23:59:59 CLS Outpatient BRENNEN PEREZ DO [facility] PREOP VENTAL HERNIA [id number] 10/05/2012 21:20:00 12/30/2012 00:01:00 DIS Outpatient WALTER SERRA [facility] SURG RCR [id number] 09/30/2012 02:15:00 10/01/2012 17:00:00 DIS Inpatient LINDA MANTILLA MD [facility] SURGICAL [id number] 12/31/2012 00:00:00 Document Registration [id number] 10/14/2012 00:00:00 Document Registration [email or web address] 12/23/2014 07:03:45 ACT Document Registration
[2018-05-26] MEDS ORDERED: PROPOFOL INJECTION 100 ML IV ONE (07:24)
[2018-05-26] MEDS ORDERED: MIDAZOLAM 2 MG/2 ML (VERSED) VIAL ONE (07:24)
[2018-05-26] MEDS ORDERED: LACTATED RINGERS 1,000 ML IV STA (07:34)
[2018-05-26 07:37] VITALS: BP 113/79
[2018-05-26] MEDS ORDERED: HURRICAINE EXT TUBE (BENZOCAINE) XX PRN (07:45)
--- NOTE | 2018-05-26 07:54 | Progress Note-Pre Operative ---
Pre-Operative Progress Note H&P Reviewed The H&P was reviewed, patient examined and no changes noted. Date Seen by Provider: May 26, 2018 Time Seen by Provider: 07:53 Date H&P Reviewed: May 26, 2018 Time H&P Reviewed: 07:53 Pre-Operative Diagnosis: epigastric abdominal, family hx colon cancer BRENNEN PEREZ DO May 26, 2018 07:53
--- NOTE | 2018-05-26 08:35 | Progress Note-Post Operative ---
Post-Operative Progess Note Surgeon (s)/Mobile Unit Assistant (s) Surgeon BRENNEN PEREZ DO Mobile Unit Assistant: na Pre-Operative Diagnosis epigastric abdominal, family hx colon cancer Post-Operative Diagnosis gastritis, hiatal hernia, normal colon Procedure & Operative Findings Date of Procedure 05/26/18 Procedure Performed/Findings egd c biopsies, colonoscopy Anesthesia Type per corporate traffic manager Estimated Blood Loss Estimated blood loss (mL): none Specimens/Packing Specimens Removed antrum, body, ge BRENNEN PEREZ DO May 26, 2018 08:34
[2018-05-26] MEDS ORDERED: SUCR1TAB36 PO (08:37)
[2018-05-26] MEDS ORDERED: PANT40TA2 PO (08:37)
--- NOTE | 2018-05-26 08:38 | Discharge Inst-Simple/Standard ---
Discharge Inst-Standard Discharge Medications New, Converted or Re-Newed RX: Transmitted to Pharmacy Patient Instructions/Follow Up Plan of Care/Instructions/FU: 3 weeks Martha Activity as Tolerated: Yes Discharge Diet: Regular Diet BRENNEN PEERZ DO May 26, 2018 08:38
[2018-05-26 08:40] VITALS: BP 93/55
[2018-05-26 09:10] VITALS: BP 102/82
--- NOTE | 2018-05-26 10:20 | Anesthesia-Regional Post-Op ---
Regional Patient Condition Mental Status: Alert, Oriented x3 Circulation: Same as Pre-Op Headache: Absent Sensation: Full Recovery Motor Block: Absent Post Op Complications Complications None Follow Up Care/Instructions Patient Instructions None needed. Anesthesia/Patient Condition Patient is doing well, no complaints, stable vital signs, no apparent adverse anesthesia problems. No complications reported per nursing. DEMIAN REGAN CRNA May 26, 2018 10:20
--- NOTE | 2018-05-26 12:02 | OPERATIVE REPORT ---
DATE OF SERVICE: 05/26/2018 PREOPERATIVE DIAGNOSES: Epigastric abdominal pain and family history of colon cancer. POSTOPERATIVE DIAGNOSES: Gastritis, hiatal hernia and normal colon. PROCEDURES: EGD with biopsies and colonoscopy. SURGEON: Brennen Thomas DO. ANESTHESIA: Per DEVELOPMENTAL WRITING INSTRUCTOR. ESTIMATED BLOOD LOSS: None. COMPLICATIONS: None. INDICATIONS: The patient is a 38-year-old female, who has been having epigastric abdominal pain. She also has family history of colon cancer. She understands risks and benefits of having procedures performed. She wishes to proceed. Consent was signed and on the chart. DESCRIPTION OF PROCEDURE: The patient was taken to the endoscopy suite and placed in the left lateral recumbent position. Timeout was performed. Scope was inserted in the mouth, down the esophagus, stomach and into the duodenum without difficulty. There were no polyps, masses or ulcerations within the duodenum. Scope was then slowly retracted back into the stomach where it was further insufflated. Significant erythematous changes were present in the distal stomach consistent with gastritis. There are no polyps, masses or ulcerations. Biopsies of the antrum and body were obtained. Scope was retroflexed noting a hiatal hernia and no other pathology noted. Scope was returned to its normal position, slowly withdrawn to the distal esophagus, which had some slight erythematous changes present as well, which biopsy was obtained. Scope was then slowly retracted back until completely removed noting no other pathology. Digital rectal exam was performed. There were no palpable polyps, masses or ulcerations. The scope was inserted in the rectum and advanced all the way to the cecum with minimal difficulty. Prep was adequate with irrigation and suction. Scope was then slowly retracted back. There were no polyps, masses or ulcerations within the cecum, ascending, transverse, descending and sigmoid colon. Once in the rectum, scope was attempted to be retroflexed, but unable to so multiple insertions and retractions were made noting no other pathology. Scope was slowly retracted back until completely removed. RECOMMENDATIONS: The patient will be started on Protonix 40 mg daily and Carafate 1 gram four times a day. We will have her follow up in three weeks to discuss pathology and see how her symptoms are doing at that time. The patient will need repeat colonoscopy due to the family history of colon cancer in 5 years. If she has any problems prior to that, she should be reevaluated at that time. Job ID: [id number] DocumentID: [id number] Dictated Date: 05/26/2018 08:42:01 Healthcare Sales Representative Date: 05/26/2018 12:01:32 Dictated By: BRENNEN THOMAS DO
[2018-05-27] MEDS ORDERED: ACHD5005 PO (15:21)
== END 2018-05-26 09:25 | disposition home or self-care (01) ==
LOC: ENDO 07:01
PROVIDERS: ATTEND Surgery
DX: Z12.11 Encounter for screening for malignant neoplasm of colon (principal); Z80.0 Family history of malignant neoplasm of digestive organs; K29.70 Gastritis, unspecified, without bleeding; K44.9 Diaphragmatic hernia without obstruction or gangrene; F90.9 Attention-deficit hyperactivity disorder, unspecified type; F17.210 Nicotine dependence, cigarettes, uncomplicated; Z79.899 Other long term (current) drug therapy

== ENCOUNTER 2018-05-27 13:15 | Emergency (ER) | payer BC ==
[~2018-05-27] VITALS: Ht 170.2 cm; Wt 55.3 kg
[~2018-05-27 13:15] MED LIST changes: -LACTATED RINGERS 1,000 ML IV ONE; +PANT40TA2 PO; +SUCR1TAB36 PO
[2018-05-27 13:38] LABS: BASOPHILS % (AUTO) 0 % (0-10); EOSINOPHILS # (AUTO) 0.1 10^3/uL (0.0-0.3); EOSINOPHILS % (AUTO) 1 % (0-10); HEMATOCRIT 42 % (35-52); HEMOGLOBIN 13.9 G/DL (11.5-16.0); LYMPHOCYTES # (AUTO) 2.3 X 10^3 (1.0-4.0); LYMPHOCYTES % (AUTO) 21 % (12-44); MEAN CORPUSCULAR HEMOGLOBIN 31 PG (25-34); MEAN CORPUSCULAR HGB CONC 33 G/DL (32-36); MEAN CORPUSCULAR VOLUME 94 FL (80-99); MEAN PLATELET VOLUME 9.8 FL (7.4-10.4); MONOCYTES # (AUTO) 0.4 X 10^3 (0.0-1.0); MONOCYTES % (AUTO) 4 % (0-12); NEUTROPHILS # (AUTO) 7.9 X 10^3 (1.8-7.8); NEUTROPHILS % (AUTO) 74 % (42-75); PLATELET COUNT 362 10^3/uL (130-400); RED BLOOD COUNT 4.43 10^6/uL (4.35-5.85); RED CELL DISTRIBUTION WIDTH 13.7 % (10.0-14.5); WHITE BLOOD COUNT 10.7 10^3/uL (4.3-11.0)
[2018-05-27] MEDS ORDERED: ASPIRIN 81 MG CHEW (CHILDREN'S ASA) PO ONE (13:45)
[2018-05-27 13:55] LABS: ALANINE AMINOTRANSFERASE 16 U/L (0-55); ALBUMIN 4.7 GM/DL (3.2-4.5); ALKALINE PHOSPHATASE 72 U/L (40-136); BILIRUBIN,TOTAL 0.3 MG/DL (0.1-1.0); BUN/CREATININE RATIO 12; CALCIUM 9.4 MG/DL (8.5-10.1); CARBON DIOXIDE 26 MMOL/L (21-32); CHLORIDE 104 MMOL/L (98-107); CREATININE SERUM 0.65 MG/DL (0.60-1.30); GFR ESTIMATED > 60; GLUCOSE 105 MG/DL (70-105); LIPASE 38 U/L (8-78); MAGNESIUM 2.1 MG/DL (1.8-2.4); POTASSIUM 3.3 MMOL/L (3.6-5.0); SODIUM 140 MMOL/L (135-145); TOTAL PROTEIN 7.4 GM/DL (6.4-8.2)
--- NOTE | 2018-05-27 13:57 | ED Chest Pain ---
General Chief Complaint: Chest Pain Stated Complaint: CHEST PAIN Nursing Triage Note: pt presents to er with complaint of chest pain that started yesterday. pt states she had an egd done yesterday and began having chest pain after. Nursing Sepsis Screen: No Definite Risk Source: patient Exam Limitations: no limitations History of Present Illness Date Seen by Provider: May 27, 2018 Time Seen by Provider: 13:41 Initial Comments Here with report of central chest pain that radiates to the right side of the neck. Had upper and lower endoscopy yesterday. States the pain to the center of the chest been going on since then. Feels a little short of breath and has some cough. Denies vomiting but does have diarrhea and states she is just still going after the lower endoscopy yesterday. Denies blood in stool. Timing/Duration: 24 hours Severity/Quality: moderate Location: central Radiation: neck, epigastric, other (postoperative upper endoscopy and colonoscopy) Prior CP/Workup: no prior cardiac workup Modifying Factors: improves with rest ASA po DENITRATOR OPERATOR: No NTG SL DENITRATOR OPERATOR: No Associated Symptoms: abdominal pain; No back pain, No diaphoresis, No dizziness , No edema, No fatigue, No fever/chills, No nausea/vomiting; shortness of breath ; No weakness Allergies and Home Medications Allergies Coded Allergies: Penicillins (Unverified Allergy, Unknown, 08/20/17) sulfamethoxazole (Unverified Allergy, Unknown, HIVES, 08/20/17) trimethoprim (Unverified Allergy, Unknown, HIVES, 08/20/17) Home Medications Alprazolam 0.5 Mg Tablet, 0.5 MG PO PRN, (Reported) Butalbital/Aspirin/Caffeine 1 Each Capsule, 1 EACH PO Q6H PRN for HEADACHE Prescribed by: LEE BOWLES on 11/04/17 1617 Dextroamphetamine/Amphetamine 20 Mg Tablet, 20 MG PO BID, (Reported) Pantoprazole Sodium 40 Mg Tablet.dr, 40 MG PO DAILY Prescribed by: BRENNEN PEREZ on 05/26/18 08 Pregabalin 50 Mg Capsule, 50 MG PO BID, (Reported) Sucralfate 1 Gm Tablet, 1 GM PO ACHS Prescribed by: BRENNEN PEREZ on 05/26/18 0837 Patient Home Medication List Home Medication List Reviewed: Yes Review of Systems Review of Systems Constitutional: see HPI EENTM: No Symptoms Reported Respiratory: See HPI, Shortness of Air; Denies Wheezing Cardiovascular: Chest Pain; Denies Edema Gastrointestinal: Abdominal Pain; Denies Nausea, Denies Vomiting Musculoskeletal: no symptoms reported All Other Systems Reviewed Negative Unless Noted: Yes Past Zmpaaax-Nljrsb-Fystga Hx Past Med/Social Hx: Reviewed Nursing Past Med/Soc Hx Patient Social History Alcohol Use: Denies Use Recreational Drug Use: No Type Used: Cigarettes Recent Foreign Travel: No Contact w/Someone Who Travel: No Recent Infectious Disease Expo: No Recent Hopitalizations: No Immunizations Up To Date Tetanus Booster (TDap): Unknown Seasonal Allergies Seasonal Allergies: Yes Past Medical History Surgeries: Yes (HERNIA REPAIR, TENDON IN WRIST) Appendectomy, Gallbladder, Hysterectomy, Tonsillectomy Respiratory: No Sleep Apnea Cardiac: No Neurological: Yes Headaches /Migraines 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 Disorders: No Female 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 Disorders: Denies 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: Hysterectomy Sexually Transmitted Disease: No HIV/AIDS: No Genitourinary: No Kidney Stones Gastrointestinal: Yes (epigastric pain) Musculoskeletal: Yes Arthritis, Chronic Back Pain Endocrine: No HEENT: No Loss of Vision: Bilateral Hearing Impairment: Denies Cancer: No Psychosocial: Yes ADD/ADHD, Anxiety, Depression Integumentary: No Blood Disorders: No Adverse Reaction/Blood Tranf: No (N/A) Family Medical History Reviewed Nursing Family Hx Physical Exam Vital Signs Vital Signs - First Documented 05/27/18 13:17 Pulse 78 Resp 20 B/P (MAP) 133/85 (101) Pulse Ox 98 O2 Delivery Room Air Capillary Refill : Less Than 3 Seconds Height, Weight, BMI Height: 5'7.00" Weight: 122lbs. 0.0oz. 55.846177bv; 19.1 BMI Method:Stated General Appearance: No Apparent Distress HEENT: PERRL/EOMI, Pharynx Normal Neck: Non Tender, Supple Respiratory: Lungs Clear, Normal Breath Sounds Cardiovascular: Regular Rate, Rhythm, No Murmur Gastrointestinal: Non Tender, Soft Extremity: Normal Range of Motion, Non Tender Neurologic/Psychiatric: Alert, Oriented x3 Skin: Normal Color, Warm/Dry Progress/Results/Core Measures Results/Orders Lab Results Laboratory Tests Test 05/27/18 13:27 Range/Units White Blood Count 10.7 4.3-11.0 10^3/uL Red Blood Count 4.43 4.35-5.85 10^6/uL Hemoglobin 13.9 11.5-16.0 G/DL Hematocrit 42 35-52 % Mean Corpuscular Volume 94 80-99 FL Mean Corpuscular Hemoglobin 31 25-34 PG Mean Corpuscular Hemoglobin Concent 33 32-36 G/DL Red Cell Distribution Width 13.7 10.0-14.5 % Platelet Count 362 130-400 10^3/uL Mean Platelet Volume 9.8 7.4-10.4 FL Neutrophils (%) (Auto) 74 42-75 % Lymphocytes (%) (Auto) 21 12-44 % Monocytes (%) (Auto) 4 0-12 % Eosinophils (%) (Auto) 1 0-10 % Basophils (%) (Auto) 0 0-10 % Neutrophils # (Auto) 7.9 H 1.8-7.8 X 10^3 Lymphocytes # (Auto) 2.3 1.0-4.0 X 10^3 Monocytes # (Auto) 0.4 0.0-1.0 X 10^3 Eosinophils # (Auto) 0.1 0.0-0.3 10^3/uL Basophils # (Auto) 0.0 0.0-0.1 10^3/uL Prothrombin Time 13.0 12.2-14.7 SEC INR Comment 1.0 0.8-1.4 Activated Partial Thromboplast Time 34 24-35 SEC D-Dimer <= 0.27 0.00-0.49 UG/ML Sodium Level 140 135-145 MMOL/L Potassium Level 3.3 L 3.6-5.0 MMOL/L Chloride Level 104 98-107 MMOL/L Carbon Dioxide Level 26 21-32 MMOL/L Anion Gap 10 5-14 MMOL/L Blood Urea Nitrogen 8 7-18 MG/DL Creatinine 0.65 0.60-1.30 MG/DL Estimat Glomerular Filtration Rate > 60 BUN/Creatinine Ratio 12 Glucose Level 105 70-105 MG/DL Calcium Level 9.4 8.5-10.1 MG/DL Corrected Calcium 8.5-10.1 MG/DL Magnesium Level 2.1 1.8-2.4 MG/DL Total Bilirubin 0.3 0.1-1.0 MG/DL Aspartate Amino Transf (AST/SGOT) 17 5-34 U/L Alanine Aminotransferase (ALT/SGPT) 16 0-55 U/L Alkaline Phosphatase 72 40-136 U/L Myoglobin 14.4 10.0-92.0 NG/ML Troponin I < 0.028 <0.028 NG/ML B-Type Natriuretic Peptide 23.3 <100.0 PG/ML Total Protein 7.4 6.4-8.2 GM/DL Albumin 4.7 H 3.2-4.5 GM/DL Lipase 38 8-78 U/L My Orders Orders - GABRIEL MCCARTHY MD Lidocaine 2% Viscous 15 Ml (Xylocaine Vi (05/27/18 14:00) Antacid Suspension (Mylanta Suspension (05/27/18 14:00) Acetaminophen Tablet/Caplet (Tylenol T (05/27/18 15:07) Medications Given in ED Current Medications Medications Dose Ordered Sig/Regla Route Start Time Stop Time Status Last Admin Dose Admin Al Hydrox/Mg Hydrox/Simethicone 30 ml ONCE ONCE PO 05/27/18 14:00 05/27/18 14:01 DC 05/27/18 14:05 30 ML Aspirin 324 mg ONCE ONCE PO 05/27/18 13:45 05/27/18 13:46 DC 05/27/18 13:46 324 MG Lidocaine HCl 15 ml ONCE ONCE PO 05/27/18 14:00 05/27/18 14:01 DC 05/27/18 14:05 15 ML Vital Signs/I&O 05/27/18 13:17 Pulse 78 Resp 20 B/P (MAP) 133/85 (101) Pulse Ox 98 O2 Delivery Room Air Blood Pressure Mean: 101 Progress Progress Note : Progress Note Seen and evaluated. IV, labs, ASA, EKG, CXR and GI cocktail ordered. Monitor patient. 1515: No acute findings. Did discuss the case with Dr. Perez. He is recommending doubling the PPI for a week and then follow-up with him. Small prescription for pain medicine is okay but not long-term. I agree. All this was discussed with the patient. She did drive here. Tylenol 650 mg by mouth times one now. Discharged home with return precautions. Patient verbalize understanding instructions and agreement with plan. Initial ECG Impression Date: May 27, 2018 Initial ECG Impression Time: 13:18 Initial ECG Rate: 80 Initial ECG Rhythm: Normal Sinus Initial ECG Comparisson: No Previous ECG Available Comment Sinus with incomplete RBBB. No evidence of ST elevation. Interpreted by me. Normal axis. Diagnostic Imaging Diagonstic Imaging: Xray Plain Films/CT/US/NM/MRI: chest Comments [facility]. [place], [place] NAME: DENA DOWNS [facility] REC#: [id number] PT STATUS: REG ER : 1980 PHYSICIAN: LEE BOWLES APRN ADMIT DATE: 05/27/18/ER Draft Date of Exam:05/27/18 CHEST 1 VIEW, AP/PA ONLY Indication: Chest pain Frontal chest obtained at 151 hours p.m. and compared to 11/30/2014. Heart and mediastinal silhouette are normal in appearance. The lungs are clear. There is no pneumothorax or pleural fluid. Impression: No acute process in the chest. Dictated on workstation # [id number] Dict: 05/27/18 1405 Trans: 05/27/[address] [facility] [id number] Interpreted by: LINDA BRAVO MD Electronically signed by: Departure Impression Primary Impression: Chest pain Qualified Codes: R07.9 - Chest pain, unspecified Additional Impression: Epigastric pain Disposition: HOME, SELF-CARE Condition: Stable Admissions Decision to Admit Reason: Admit from ER (General) Departure-Patient Inst. Decision time for Depature: 15:19 Referrals: KEITH BHARDWAJ MD (PCP/Family) Primary Care Physician Patient Instructions: Chest Pain (DC), Gastritis (DC) Add. Discharge Instructions: All discharge instructions reviewed with patient and/or family. Voiced understanding. You may take Tylenol/acetaminophen 500 mg every 6 hours as needed for pain. Take other pain medicine as prescribed. If you're not taking prescribed pain medicine you may increase to Tylenol 1000 mg every 6-8 hours as needed for pain. Do not exceed 4000 mg in 24 hours. Follow-up with Dr. Perez within the next week for recheck and further evaluation. You should take your acid reducing medicine (Protonix) twice daily for the next 7 days and then return to once daily dosing. Continue Carafate as prescribed. Clear liquid diet for 24 hours and then advance as tolerated. Avoid spicy or fatty foods. Return for worse pain, fever, vomiting, weakness, breathing problems or other concerns as needed. Scripts Hydrocodone Bit/Acetaminophen (Hydrocodone/Acetaminophen 5/325mg Tablet) 1 Tab Tab 1 EACH PO Q6H PRN for PAIN-MODERATE MDD 10, #8 TAB Prov: GABRIEL MCCARTHY MD 05/27/18 Copy Copies To 1: BRENNEN PEREZ TIMOTHY D MD May 27, 2018 13:57
[2018-05-27] MEDS ORDERED: LIDOCAINE 2% VISCOUS 15 ML UDC PO ONE (14:00)
[2018-05-27] MEDS ORDERED: ANTACID SUSP 30 ML UDC (MYLANTA) PO ONE (14:00)
[2018-05-27 14:03] LABS: MYOGLOBIN SERUM 14.4 NG/ML (10.0-92.0)
[2018-05-27 14:06] LABS: FIBRIN DEGRADATION PRODUCTS <= 0.27 UG/ML (0.00-0.49); PARTIAL THROMBOPLASTIN TIME 34 SEC (24-35)
--- NOTE | 2018-05-27 14:08 | Diagnostic Imaging Report ---
Indication: Chest pain Frontal chest obtained at 151 hours p.m. and compared to 11/30/2014. Heart and mediastinal silhouette are normal in appearance. The lungs are clear. There is no pneumothorax or pleural fluid. Impression: No acute process in the chest. Dictated by: Dictated on workstation # [id number]
[2018-05-27] MEDS ORDERED: ACETAMINOPHEN 325 MG TABLET PO STA (15:07)
[2018-05-27] MEDS ORDERED: ACHD5005 PO (15:21)
[2018-05-27 15:29] VITALS: BP 117/67
--- OUTSIDE RECORDS SUMMARY | 2018-05-27 17:26 | XMS REPORT | Encounter Summary ---
Author Author [facility] Organization [facility] Address Unknown Phone Unavailable Care Team Providers Care Clip Coater Name Role Phone Srinivas Monroe MD 21 Srinivas Monroe MD PCP Encounter Details Care Team Description Date Type Department Gardenia Fitch MD [address] [facility] [address] [place] [address] Pre-procedure lab exam (Primary Dx) 02/27/2018 Orders Only [facility] - Neuro[facility] Level [address] [place] [address] Social History Date Tobacco Use [...]
--- OUTSIDE RECORDS SUMMARY | 2018-05-27 17:26 | XMS REPORT | Clinical Summary ---
Author Author [facility] Organization [facility] Address Unknown Phone Unavailable Care Team Providers Care Superintendent Meters Name Role Phone Srinivas Monroe MD 21 Srinivas Monroe MD PCP Source Comments Some departments are not documenting in the electronic medical record. If you do not see the information that you expected, contact Release of Information in the Health Information Management department at [phone] for further assistance in locating additional records.[facility] Allergies Comments Active Allergy Reactions Severity [...] ID Type Phone Address Plan / Group [facility] xxxxxxxxxxxxxxx PPO PREF CARE Advance Directives Patient has advance care planning documents on file. For more information, please contact: [facility] [address] [place] [address]
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
== END 2018-05-27 15:29 | disposition home or self-care (01) ==
LOC: EDUNIT# 13:15 → ER 13:16
DX: R07.89 Other chest pain (principal); R10.13 Epigastric pain; G47.30 Sleep apnea, unspecified; G43.909 Migraine, unspecified, not intractable, without status migrainosus; F98.8 Other specified behavioral and emotional disorders with onset usually occurring in childhood and adolescence; F90.9 Attention-deficit hyperactivity disorder, unspecified type; F41.9 Anxiety disorder, unspecified; F32.9 Major depressive disorder, single episode, unspecified; Z87.442 Personal history of urinary calculi; Z90.89 Acquired absence of other organs; Z90.710 Acquired absence of both cervix and uterus; Z88.0 Allergy status to penicillin; Z88.2 Allergy status to sulfonamides; Z88.8 Allergy status to other drugs, medicaments and biological substances; Z98.890 Other specified postprocedural states; Z90.49 Acquired absence of other specified parts of digestive tract
CPT/HCPCS: 36415; 71045; 80053; 83690; 83735; 83874; 83880; 84484; 85025; 85379; 85610; 85730; 93005; 93041

== ENCOUNTER 2018-07-13 14:54 | Emergency (ER) | payer BC ==
[~2018-07-13] VITALS: Ht 170.2 cm; Wt 54.9 kg
[~2018-07-13 14:54] MED LIST changes: +ACHD5005 PO
[2018-07-13 15:17] LABS: BILIRUBIN,URINE NEGATIVE (NEGATIVE); CLARITY,URINE SLIGHTLY CLOUDY; COLOR,URINE AMBER; GLUCOSE, URINE (UA) NEGATIVE (NEGATIVE); KETONES,URINE 1+ (NEGATIVE); LEUKOCYTE ESTERASE ,URINE 1+ (NEGATIVE); NITRITE,URINE POSITIVE (NEGATIVE); PH,URINE 6 (5-9); PROTEIN,URINE 1+ (NEGATIVE); UROBILINOGEN,URINE 1 MG/DL (NORMAL)
--- NOTE | 2018-07-13 15:19 | ED GU-Female ---
General Stated Complaint: PAIN IN LOWER ABD AND LOWER BACK FEVER Source: patient Exam Limitations: no limitations History of Present Illness Date Seen by Provider: Jul 13, 2018 Time Seen by Provider: 15:18 Initial Comments To ER with reports of suprapubic abdominal pain, low back pain, intermittent fever up to 100.8. She was diagnosed with urinary tract infection at walk-in clinic on Friday (today is Friday), given a prescription for Keflex and Pyridium but her symptoms persist. Timing/Duration: constant Severity/Quality: moderate Location: suprapubic Radiation: none Activities at Onset: none Prior Genitourinary Problems: none Associated Symptoms: dysuria Allergies and Home Medications Allergies Coded Allergies: Penicillins (Unverified Allergy, Unknown, 08/20/17) sulfamethoxazole (Unverified Allergy, Unknown, HIVES, 08/20/17) trimethoprim (Unverified Allergy, Unknown, HIVES, 08/20/17) Home Medications Alprazolam 0.5 Mg Tablet, 0.5 MG PO PRN, (Reported) Butalbital/Aspirin/Caffeine 1 Each Capsule, 1 EACH PO Q6H PRN for HEADACHE Prescribed by: LEE BOWLES on 11/04/17 1617 Dextroamphetamine/Amphetamine 20 Mg Tablet, 20 MG PO BID, (Reported) Hydrocodone Bit/Acetaminophen 1 Tab Tab, 1 EACH PO Q6H PRN for PAIN-MODERATE Prescribed by: GABRIEL MCCARTHY on 05/27/18 1521 Pantoprazole Sodium 40 Mg Tablet.dr, 40 MG PO DAILY Prescribed by: BRENNEN PEREZ on 05/26/18 0837 Pregabalin 50 Mg Capsule, 50 MG PO BID, (Reported) Sucralfate 1 Gm Tablet, 1 GM PO ACHS Prescribed by: BRENNEN PEREZ on 05/26/18 0837 Patient Home Medication List Home Medication List Reviewed: Yes Review of Systems Review of Systems Constitutional: see HPI EENTM: see HPI Respiratory: no symptoms reported Cardiovascular: no symptoms reported Genitourinary: see HPI Musculoskeletal: no symptoms reported Skin: no symptoms reported Psychiatric/Neurological: No Symptoms Reported Past Lfnnohb-Yyrgge-Vxxhbq Hx Patient Social History Type Used: Cigarettes Recent Foreign Travel: No Contact w/Someone Who Travel: No Recent Hopitalizations: No Immunizations Up To Date Tetanus Booster (TDap): Unknown Seasonal Allergies Seasonal Allergies: Yes Past Medical History Surgeries: Yes (HERNIA REPAIR, TENDON IN WRIST) Appendectomy, Gallbladder, Hysterectomy, Tonsillectomy Respiratory: No Sleep Apnea Cardiac: No Neurological: Yes Headaches /Migraines 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 Disorders: No Female 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 Disorders: Denies 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 0.0oz. 55.305644on; 19.1 BMI Method:Stated General Appearance: WD/WN, no apparent distress HEENT: PERRL/EOMI, normal ENT inspection Respiratory: no respiratory distress, no accessory muscle use Gastrointestinal: normal bowel sounds, soft Extremities: normal range of motion, non-tender Neurologic/Psychiatric: alert, normal mood/affect, oriented x 3 Skin: normal color, warm/dry Progress/Results/Core Measures Suspected Sepsis SIRS Temperature: Pulse: Respiratory Rate: Laboratory Tests 07/13/18 15:15: White Blood Count 10.5 Blood Pressure / Mean: Laboratory Tests 07/13/18 15:15: Creatinine 0.61, Platelet Count 321 Results/Orders Lab Results Laboratory Tests Test 07/13/18 15:05 07/13/18 15:15 Range/Units Urine Color MALIA H Urine Clarity SLIGHTLY CLOUDY Urine pH 6 5-9 Urine Specific [place] 1.020 1.016-1.022 Urine Protein 1+ H NEGATIVE Urine Glucose (UA) NEGATIVE NEGATIVE Urine Ketones 1+ H NEGATIVE Urine Nitrite POSITIVE H NEGATIVE Urine Bilirubin NEGATIVE NEGATIVE Urine Urobilinogen 1 NORMAL MG/DL Urine Leukocyte Esterase 1+ H NEGATIVE Urine RBC (Auto) 3+ H NEGATIVE Urine RBC 2-5 H /HPF Urine WBC 2-5 /HPF Urine Crystals NONE /LPF Urine Bacteria TRACE /HPF Urine Casts NONE /LPF Urine Mucus NEGATIVE /LPF Urine Culture Indicated YES White Blood Count 10.5 4.3-11.0 10^3/uL Red Blood Count 4.05 L 4.35-5.85 10^6/uL Hemoglobin 12.5 11.5-16.0 G/DL Hematocrit 38 35-52 % Mean Corpuscular Volume 93 80-99 FL Mean Corpuscular Hemoglobin 31 25-34 PG Mean Corpuscular Hemoglobin Concent 33 32-36 G/DL Red Cell Distribution Width 13.1 10.0-14.5 % Platelet Count 321 130-400 10^3/uL Mean Platelet Volume 9.0 7.4-10.4 FL Neutrophils (%) (Auto) 73 42-75 % Lymphocytes (%) (Auto) 15 12-44 % Monocytes (%) (Auto) 11 0-12 % Eosinophils (%) (Auto) 1 0-10 % Basophils (%) (Auto) 0 0-10 % Neutrophils # (Auto) 7.7 1.8-7.8 X 10^3 Lymphocytes # (Auto) 1.6 1.0-4.0 X 10^3 Monocytes # (Auto) 1.2 H 0.0-1.0 X 10^3 Eosinophils # (Auto) 0.1 0.0-0.3 10^3/uL Basophils # (Auto) 0.0 0.0-0.1 10^3/uL Sodium Level 137 135-145 MMOL/L Potassium Level 4.0 3.6-5.0 MMOL/L Chloride Level 101 98-107 MMOL/L Carbon Dioxide Level 27 21-32 MMOL/L Anion Gap 9 5-14 MMOL/L Blood Urea Nitrogen 7 7-18 MG/DL Creatinine 0.61 0.60-1.30 MG/DL Estimat Glomerular Filtration Rate > 60 BUN/Creatinine Ratio 11 Glucose Level 102 70-105 MG/DL Calcium Level 8.9 8.5-10.1 MG/DL My Orders Orders - 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 Ua Culture If Indicated (07/13/18 14:57) Urine Bedside (07/13/18 14:57) Cbc With Automated Diff (07/13/18 15:16) Basic Metabolic Panel (07/13/18 15:16) Urine Culture (07/13/18 15:05) Ct Abd/Pelvis Wo(Kidney Stone) (07/13/18 15:28) Ketorolac Injection (Toradol Injection) (07/13/18 15:45) Medications Given in ED Current Medications Medications Dose Ordered Sig/Regla Route Start Time Stop Time Status Last Admin Dose Admin Ketorolac Tromethamine 15 mg ONCE ONCE IVP 07/13/18 15:45 07/13/18 15:46 DC 07/13/18 15:35 15 MG Vital Signs/I&O 07/13/18 15:00 Temp 98.7 Pulse 98 Resp 18 B/P (MAP) 122/72 (89) Pulse Ox 99 Capillary Refill : Departure Impression Primary Impression: Dysuria Disposition: HOME, SELF-CARE Condition: Stable Departure-Patient Inst. Decision time for Depature: 16:50 Referrals: KEITH MONROE MD (PCP/Family) Primary Care Physician Patient Instructions: Urinary Tract Infection, Adult (DC) Add. Discharge Instructions: 1. Medication as directed. 2. Follw up with Dr Monroe, I made an appointment for you tomorrow at 3:30pm Scripts Oxybutynin Chloride (Ditropan Xl) 5 Mg Tab 5 MG PO BID, #10 TAB Prov: LEE BOWLES APRN 07/13/18 Copy Copies To 1: KEITH MONROE MD, PETER J APRN Jul 13, 2018 15:19
[2018-07-13 15:21] LABS: BASOPHILS % (AUTO) 0 % (0-10); EOSINOPHILS # (AUTO) 0.1 10^3/uL (0.0-0.3); EOSINOPHILS % (AUTO) 1 % (0-10); HEMATOCRIT 38 % (35-52); HEMOGLOBIN 12.5 G/DL (11.5-16.0); LYMPHOCYTES # (AUTO) 1.6 X 10^3 (1.0-4.0); LYMPHOCYTES % (AUTO) 15 % (12-44); MEAN CORPUSCULAR HEMOGLOBIN 31 PG (25-34); MEAN CORPUSCULAR HGB CONC 33 G/DL (32-36); MEAN CORPUSCULAR VOLUME 93 FL (80-99); MONOCYTES # (AUTO) 1.2 X 10^3 (0.0-1.0); MONOCYTES % (AUTO) 11 % (0-12); NEUTROPHILS # (AUTO) 7.7 X 10^3 (1.8-7.8); NEUTROPHILS % (AUTO) 73 % (42-75); PLATELET COUNT 321 10^3/uL (130-400); RED CELL DISTRIBUTION WIDTH 13.1 % (10.0-14.5); WHITE BLOOD COUNT 10.5 10^3/uL (4.3-11.0)
[2018-07-13 15:27] LABS: BACTERIA,URINE TRACE /HPF
[2018-07-13 15:43] LABS: BUN/CREATININE RATIO 11; CALCIUM 8.9 MG/DL (8.5-10.1); CARBON DIOXIDE 27 MMOL/L (21-32); CHLORIDE 101 MMOL/L (98-107); CREATININE SERUM 0.61 MG/DL (0.60-1.30); GFR ESTIMATED > 60; GLUCOSE 102 MG/DL (70-105); SODIUM 137 MMOL/L (135-145)
[2018-07-13] MEDS ORDERED: KETOROLAC 30 MG/ML VIAL IVP ONE (15:45)
[2018-07-13] MEDS ORDERED: OXB5TCR PO (16:52)
[2018-07-13 17:03] VITALS: BP 122/72
--- NOTE | 2018-07-13 19:04 | Diagnostic Imaging Report ---
PROCEDURE: CT urinary tract, rule out kidney stone. TECHNIQUE: Multiple contiguous axial images were obtained through the abdomen and pelvis without the use of intravenous contrast. INDICATION: Bilateral posterior and anterior abdominal pain. COMPARISON: Correlation is made with prior CT from 11/30/2014. FINDINGS: The lung bases are clear. There is a small low density in the anterior right lobe suggestive of a cyst. There is a small amount of biliary gas present within small intrahepatic ducts as well as within the common bile duct. This could be secondary to incompetent sphincter. The pancreas and spleen are unremarkable. No adrenal mass is identified. The gallbladder is surgically absent. No definite renal calculi or hydronephrosis is identified. No definite ureteral calculi are seen. No bladder calculi are identified. Aorta is non-aneurysmal. The small and large bowel loops are normal caliber. There is no ascites. No inflammatory process is seen. Moderate stool in the colon and rectum is noted perhaps on the basis of constipation. IMPRESSION: 1. Pneumobilia. This can be seen with an incompetent sphincter or perhaps recent passage of a calculus. No common duct stone is identified. 2. No evidence of urinary tract calculi or obstruction. 3. Moderate stool in the colon suggestive of constipation. Dictated by: Dictated on workstation # [id number]
== END 2018-07-13 17:16 | disposition home or self-care (01) ==
LOC: EDUNIT# 14:54 → ER 14:56
DX: R30.0 Dysuria (principal); G47.30 Sleep apnea, unspecified; G43.909 Migraine, unspecified, not intractable, without status migrainosus; F98.8 Other specified behavioral and emotional disorders with onset usually occurring in childhood and adolescence; F90.9 Attention-deficit hyperactivity disorder, unspecified type; F41.9 Anxiety disorder, unspecified; F32.9 Major depressive disorder, single episode, unspecified; Z87.442 Personal history of urinary calculi; Z88.0 Allergy status to penicillin; Z88.2 Allergy status to sulfonamides; Z88.8 Allergy status to other drugs, medicaments and biological substances; Z98.890 Other specified postprocedural states; Z90.49 Acquired absence of other specified parts of digestive tract; Z90.710 Acquired absence of both cervix and uterus; Z90.89 Acquired absence of other organs
CPT/HCPCS: 36415; 74176; 80048; 81000; 85025; 87088

== ENCOUNTER 2018-09-09 17:02 | Emergency (ER) | payer BC ==
[~2018-09-09] VITALS: Ht 170.2 cm; Wt 56.7 kg
[~2018-09-09 17:02] MED LIST changes: +OXB5TCR PO
--- NOTE | 2018-09-09 17:28 | ED Back Pain ---
General Chief Complaint: Back Problems Stated Complaint: FALL,BACK PAIN Nursing Triage Note: PT REPORTS FALLING LAST FRIDAY ON CONCRETE AND HITTING TAILBONE, BACK, AND HEAD. PT DENIES LOC. PT PRESENTS TO THE ER TODAY DUE TO BACK PAIN AND HEAD PAIN NOT IMPROVING. Nursing Sepsis Screen: No Definite Risk Source of Information: Patient Exam Limitations: No Limitations History of Present Illness Date Seen by Provider: September 09, 2018 Time Seen by Provider: 17:13 Initial Comments Patient presents to ER by private conveyance with chief complaint 7 days ago she was walking through the parking lot slipped in a puddle and had a fall landing on her back and the occiput of her head. She was not knocked out. No nausea vomiting. Denied it checked out at that time. She did finally go see her doctor a few days ago and was given some Flexeril area she's been using Tylenol and ibuprofen at adequate doses. She also is using salon cause and topical creams area she says the pain has not improved. She is not having any saddle anesthesia, numbness weakness falls urinary or bowel incontinence or hesitancy. She does have mild dysuria. The patient uses Lyrica for her fibromyalgia. She doesn't history of back pain with sciatica but she's not having any sciatica or radiation of pain down either buttock today. She feels the left maybe a little worse than right. Allergies and Home Medications Allergies Coded Allergies: Penicillins (Unverified Allergy, Mild, HIVES, 09/09/18) sulfamethoxazole (Unverified Allergy, Mild, HIVES, 09/09/18) trimethoprim (Unverified Allergy, Mild, HIVES, 09/09/18) Home Medications Alprazolam 0.5 Mg Tablet, 0.5 MG PO PRN, (Reported) Butalbital/Aspirin/Caffeine 1 Each Capsule, 1 EACH PO Q6H PRN for HEADACHE Prescribed by: LEE BOWLES on 11/04/17 1617 Dextroamphetamine/Amphetamine 20 Mg Tablet, 20 MG PO BID, (Reported) Hydrocodone Bit/Acetaminophen 1 Tab Tab, 1 EACH PO Q6H PRN for PAIN-MODERATE Prescribed by: GABRIEL MCCARTHY on 05/27/18 1521 Hydrocodone Bit/Acetaminophen 1 Tab Tab, 1 EACH PO Q4-6HR PRN for PAIN-MODERATE Prescribed by: ROULA FRYE on 09/09/18 1731 Oxybutynin Chloride 5 Mg Tab, 5 MG PO BID Prescribed by: LEE BOWLES on 07/13/18 1652 Pantoprazole Sodium 40 Mg Tablet.dr, 40 MG PO DAILY Prescribed by: BRENNEN PEREZ on 05/26/18 0837 Pregabalin 50 Mg Capsule, 50 MG PO BID, (Reported) Sucralfate 1 Gm Tablet, 1 GM PO ACHS Prescribed by: BRENNEN PEREZ on 05/26/18 0837 Patient Home Medication List Home Medication List Reviewed: Yes Review of Systems Constitutional: No chills, No diaphoresis EENTM: No ear discharge, No ear pain Respiratory: No cough, No short of breath Cardiovascular: No chest pain, No palpitations Gastrointestinal: No abdominal pain, No constipation Genitourinary: No discharge, No dysuria Past Brbvmlb-Xyndsd-Wobsgm Hx Patient Social History Alcohol Use: Denies Use Recreational Drug Use: No Smoking Status: Current Everyday Smoker Type Used: Cigarettes 2nd Hand Smoke Exposure: Yes Recent Foreign Travel: No Contact w/Someone Who Travel: No Recent Infectious Disease Expo: No Recent Hopitalizations: No Physical Abuse: No Sexual Abuse: No Immunizations Up To Date Tetanus Booster (TDap): Unknown Seasonal Allergies Seasonal Allergies: Yes Past Medical History Surgeries: Yes (HERNIA REPAIR, TENDON IN WRIST) Appendectomy, Gallbladder, Hysterectomy, Tonsillectomy Respiratory: No Sleep Apnea Cardiac: No Neurological: Yes Headaches /Migraines 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 Disorders: No Female 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 Disorders: Denies 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 Sexually Transmitted Disease: No HIV/AIDS: No Genitourinary: No Kidney Stones Gastrointestinal: Yes (epigastric pain) Musculoskeletal: Yes Arthritis, Chronic Back Pain Endocrine: No HEENT: No Loss of Vision: Bilateral Hearing Impairment: Denies Cancer: No Psychosocial: Yes ADD/ADHD, Anxiety, Depression Integumentary: No Blood Disorders: No Adverse Reaction/Blood Tranf: No (N/A) Physical Exam Vital Signs Vital Signs - First Documented 09/09/18 17:06 Temp 100.2 Pulse 117 Resp 16 B/P (MAP) 112/55 (74) Pulse Ox 98 Capillary Refill : Less Than 3 Seconds Height, Weight, BMI Height: 5'7.00" Weight: 125lbs. 0oz. 56.994605uf; 19.1 BMI Method:Stated General Appearance: WD/WN, Mild Distress HEENT: PERRL/EOMI, Normal ENT Inspection, Pharynx Normal, Moist Mucous Membranes Neck: Full Range of Motion, Normal Inspection Cardiovascular: Regular Rate, Rhythm, No Edema, Normal Peripheral Pulses Respiratory: No Accessory Muscle Use, No Respiratory Distress Gastrointestinal: Normal Bowel Sounds, Non Tender, Soft Back: Normal Inspection, Vertebral Tenderness (midline base of the thoracic spine T10 through T12 is mildly tender to palpation. Lumbar and sacral spine tenderness to palpation left worse than right as well as midline. No swelling erythema or step-off.) Extremity: Normal Capillary Refill, Normal Inspection Neurologic/Psychiatric: Alert, Oriented x3, No Motor/Sensory Deficits Progress/Results/Core Measures Results/Orders Lab Results Laboratory Tests Test 09/09/18 17:46 Range/Units Urine Color MALIA H Urine Clarity SLIGHTLY CLOUDY Urine pH 6 5-9 Urine Specific [place] 1.020 1.016-1.022 Urine Protein 2+ H NEGATIVE Urine Glucose (UA) NEGATIVE NEGATIVE Urine Ketones 1+ H NEGATIVE Urine Nitrite NEGATIVE NEGATIVE Urine Bilirubin NEGATIVE NEGATIVE Urine Urobilinogen 1 NORMAL MG/DL Urine Leukocyte Esterase 1+ H NEGATIVE Urine RBC (Auto) 3+ H NEGATIVE Urine RBC 2-5 H /HPF Urine WBC RARE /HPF Urine Squamous Epithelial Cells 2-5 /HPF Urine Crystals NONE /LPF Urine Bacteria TRACE /HPF Urine Casts NONE /LPF Urine Mucus NEGATIVE /LPF Urine Culture Indicated NO My Orders Orders - ROULA FRYE Urine Bedside (09/09/18 17:19) Sacrum And Coccyx (09/09/18 17:19) Thoracic Spine, 2 Views Only (09/09/18 17:19) Lumbar Spine - 2-3 Views (09/09/18 17:19) Vital Signs/I&O 09/09/18 17:06 Temp 100.2 Pulse 117 Resp 16 B/P (MAP) 112/55 (74) Pulse Ox 98 Blood Pressure Mean: 74 Progress Progress Note : Time: 17:25 Progress Note Patient had a fall now she's having some low back pain. No sciatic involvement. No evidence of radiculopathy. We'll obtain plain films to rule out obvious fracture. She is not having any red flag signs this time. We can provide her with a short amount of opiates. Follow-up with primary care discuss possible physical therapy. It's only been a week so we probably would not start steroids. Urinalysis. She has stated hysterectomy but we'll get a bedside . Diagnostic Imaging Diagonstic Imaging: Xray Plain Films/CT/US/NM/MRI: other (thoracolumbar and sacral coccygeal spine x- rays) Comments No acute fracture or subluxation or dislocation. [facility], [place] NAME: DENA DOWNS [facility] REC#: [id number] PT STATUS: REG ER : 1980 PHYSICIAN: ROULA FRYE MD ADMIT DATE: 09/09/18/ER Draft Date of Exam:09/09/18 LUMBAR SPINE - 2-3 VIEWS INDICATION: Fall with back pain. FINDINGS: AP and lateral views of the lumbar spine reveal no fracture or malalignment. Lumbar spinal curvature and alignment are within normal limits. There is a nonacute ossific fragment along the anterior margin of the inferior endplate of L5. This may be related to old injury or represent congenital ossicle. IMPRESSION: No acute abnormality is identified. Dictated on workstation # [id number] Dict: 09/09/18 175 Trans: 09/09/181752 [facility] [id number] Interpreted by: ANNEL EMERY MD Electronically signed by: [facility] [place] NAME: DENA DOWNS [facility] REC#: [id number] PT STATUS: REG ER : 1980 PHYSICIAN: ROULA FRYE MD ADMIT DATE: 09/09/18/ER Draft Date of Exam:09/09/18 SACRUM AND COCCYX INDICATION: Fall with pelvic injury. AP and lateral views of the sacrum and coccyx are obtained. FINDINGS: No acute fracture or dislocation is identified. No abnormal lytic or sclerotic focus is seen, and there is no radiopaque foreign body. IMPRESSION: No acute abnormality. Dictated on workstation # [id number] Dict: 09/09/18 175 Trans: 09/09/18 175 [id number] Interpreted by: ANNEL EMERY MD Electronically signed by: NAME: DENA DOWNS [facility] REC#: [id number] PHYSICIAN: ROULA FRYE MD CC: STANLEY RUGGIERO MD; ROULA FRYE Page 1 of 1 RADIOLOGY REPORT [facility] [place] CC: STANLEY RUGGIERO MD; ROULA FRYE Page 1 of 1 RADIOLOGY REPORT NAME: DENA DOWNS [facility] REC#: [id number] PT STATUS: REG ER : 1980 PHYSICIAN: ROULA FRYE MD ADMIT DATE: 09/09/18/ER Signed Date of Exam: 09/09/18 THORACIC SPINE, 2 VIEWS ONLY PATIENT HISTORY: Fall, mid back pain. TECHNIQUE: Two views of the thoracic spine. COMPARISON: None. FINDINGS: There is slight right convex curvature of the lower thoracic spine. Vertebral body heights and disc heights are generally preserved. The upper thoracic spine is partially obscured by overlapping structures. No acute fracture is seen. There is no spondylolisthesis. Cholecystectomy clips are noted. IMPRESSION: No acute osseous abnormality is seen in the thoracic spine. Dictated by: Dictated on workstation # [id number] Dict: 09/09/181752 Trans: 09/09/181757 Interpreted by: STANLEY RUGGIERO MD Electronically signed by: STANLEY RUGGIERO MD 09/09/181757 Reviewed: Reviewed by Me Departure Impression Primary Impression: Fall Qualified Codes: W19.XXXA - Unspecified fall, initial encounter Additional Impression: Back strain Qualified Codes: S39.012A - Strain of muscle, fascia and tendon of lower back , initial encounter Disposition: 01 HOME, SELF-CARE Condition: Stable Departure-Patient Inst. Decision time for Depature: 18:05 Referrals: KEITH BHARDWAJ MD (PCP/Family) Primary Care Physician Patient Instructions: Low Back Pain (DC) Add. Discharge Instructions: You should obtain a back brace and wear it on the days that it helps. Continue to use the topical creams and patches. Use Tylenol 650 mg every 8 hours. You can use ibuprofen 4 tablets every 8 hours or Naprosyn 2 tablets twice a day. Consider follow-up with a chiropractor. Follow-up with primary care if not seeing some improvement in a week or so and discuss physical therapy referral. If you have breakthrough pain that keeps you from being functional then you can use the hydrocodone one tablet every 6 hours as needed but will cause drowsiness and constipation. MiraLAX to help with the constipation. Do not mix with alcohol. All discharge instructions reviewed with patient and/or family. Voiced understanding. Scripts Hydrocodone Bit/Acetaminophen (Hydrocodone/Acetaminophen 5/325mg Tablet) 1 Tab Tab 1 EACH PO Q4-6HR PRN for PAIN-MODERATE MDD 10 for 3 Days, #15 TAB 0 Refills Prov: ROULA FRYE 09/09/18 Work/School Note: Work Release Form Date Seen in the Emergency Department: September 09, 2018 Return to Work: September 10, 2018 Restrictions: No Restrictions ROULA FRYE September 09, 2018 17:28
[2018-09-09] MEDS ORDERED: ACHD5005 PO (17:31)
[2018-09-09 17:53] LABS: BILIRUBIN,URINE NEGATIVE (NEGATIVE); CLARITY,URINE SLIGHTLY CLOUDY; COLOR,URINE AMBER; GLUCOSE, URINE (UA) NEGATIVE (NEGATIVE); KETONES,URINE 1+ (NEGATIVE); LEUKOCYTE ESTERASE ,URINE 1+ (NEGATIVE); NITRITE,URINE NEGATIVE (NEGATIVE); PH,URINE 6 (5-9); PROTEIN,URINE 2+ (NEGATIVE); UROBILINOGEN,URINE 1 MG/DL (NORMAL)
--- NOTE | 2018-09-09 17:54 | Diagnostic Imaging Report ---
INDICATION: Fall with back pain. FINDINGS: AP and lateral views of the lumbar spine reveal no fracture or malalignment. Lumbar spinal curvature and alignment are within normal limits. There is a nonacute ossific fragment along the anterior margin of the inferior endplate of L5. This may be related to old injury or represent congenital ossicle. IMPRESSION: No acute abnormality is identified. Dictated by: Dictated on workstation # [id number]
--- NOTE | 2018-09-09 17:56 | Diagnostic Imaging Report ---
INDICATION: Fall with pelvic injury. AP and lateral views of the sacrum and coccyx are obtained. FINDINGS: No acute fracture or dislocation is identified. No abnormal lytic or sclerotic focus is seen, and there is no radiopaque foreign body. IMPRESSION: No acute abnormality. Dictated by: Dictated on workstation # [id number]
--- NOTE | 2018-09-09 17:56 | Diagnostic Imaging Report ---
PATIENT HISTORY: Fall, mid back pain. TECHNIQUE: Two views of the thoracic spine. COMPARISON: None. FINDINGS: There is slight right convex curvature of the lower thoracic spine. Vertebral body heights and disc heights are generally preserved. The upper thoracic spine is partially obscured by overlapping structures. No acute fracture is seen. There is no spondylolisthesis. Cholecystectomy clips are noted. IMPRESSION: No acute osseous abnormality is seen in the thoracic spine. Dictated by: Dictated on workstation # [id number]
[2018-09-09 18:03] LABS: BACTERIA,URINE TRACE /HPF; WBC,URINE RARE /HPF
[2018-09-09 18:10] VITALS: BP 112/55
== END 2018-09-09 18:10 | disposition home or self-care (01) ==
LOC: EDUNIT# 17:02 → ER 17:03
DX: S39.012A Strain of muscle, fascia and tendon of lower back, initial encounter (principal); G47.30 Sleep apnea, unspecified; F98.8 Other specified behavioral and emotional disorders with onset usually occurring in childhood and adolescence; F90.9 Attention-deficit hyperactivity disorder, unspecified type; F41.9 Anxiety disorder, unspecified; F32.9 Major depressive disorder, single episode, unspecified; G43.909 Migraine, unspecified, not intractable, without status migrainosus; F17.210 Nicotine dependence, cigarettes, uncomplicated; Z90.49 Acquired absence of other specified parts of digestive tract; Z87.442 Personal history of urinary calculi; Z98.890 Other specified postprocedural states; Z90.710 Acquired absence of both cervix and uterus; Z90.89 Acquired absence of other organs; Z88.0 Allergy status to penicillin; Z88.2 Allergy status to sulfonamides; Z88.8 Allergy status to other drugs, medicaments and biological substances; W01.198A Fall on same level from slipping, tripping and stumbling with subsequent striking against other object, initial encounter
CPT/HCPCS: 72070; 72100; 72220; 81000; 84703

== ENCOUNTER 2019-01-01 05:48 | Outpatient (CLI) | payer BC ==
[~2019-01-01] VITALS: Ht 170.2 cm; Wt 54.0 kg
[2019-01-01] MEDS ORDERED: ESCI20TA PO (13:49)
[2019-01-01] MEDS ORDERED: AMPH30TA2 PO (13:49)
--- NOTE | 2019-01-06 09:57 | Progress Note ---
Progress Note Assessment/Plan Date Seen by Provider: Jan 06, 2019 Time Seen by Provider: 09:45 Events since last exam Pt called anesthesia office with c/o headache, inquiring if it could be related to anesthesia. Explained to patient that she was only given short acting IV sedation for EGD. Highly unlikely it would be related to anesthesia in any way. Pt has history of migraines and has prn migraine medication listed on home med list. Encouraged to f/u with Dr. Thomas's office if symptoms persist. Dr Thomas notified. Assessment/Plan n/a GLENDY ALFONSO CRNA Jan 06, 2019 09:57
== END 2019-01-01 13:44 | disposition home or self-care (01) ==
LOC: PREOP 05:48
PROVIDERS: ATTEND Surgery
DX: Z01.818 Encounter for other preprocedural examination (principal)

== ENCOUNTER 2019-01-05 10:57 | Day surgery (SDC) | payer BC ==
[~2019-01-05] VITALS: Ht 170.2 cm; Wt 54.0 kg
[~2019-01-05 10:57] MED LIST changes: +AMPH30TA2 PO; +ESCI20TA PO
[2019-01-05] MEDS ORDERED: LACTATED RINGERS 1,000 ML IV STA (11:05)
[2019-01-05] MEDS ORDERED: HURRICAINE EXT TUBE (BENZOCAINE) XX PRN (11:15)
[2019-01-05 11:20] VITALS: BP 112/60
[2019-01-05] MEDS ORDERED: MIDAZOLAM 2 MG/2 ML (VERSED) VIAL IV ONE (12:00)
[2019-01-05] MEDS ORDERED: PROPOFOL INJECTION 50 ML IV ONE (12:41)
[2019-01-05] MEDS ORDERED: MIDAZOLAM 2 MG/2 ML (VERSED) VIAL ONE (12:45)
[2019-01-05] MEDS ORDERED: HURRICAINE EXT TUBE (BENZOCAINE) ONE (12:58)
--- NOTE | 2019-01-05 13:07 | Progress Note-Pre Operative ---
Pre-Operative Progress Note H&P Reviewed The H&P was reviewed, patient examined and no changes noted. Date Seen by Provider: Jan 05, 2019 Time Seen by Provider: 13:07 Date H&P Reviewed: Jan 05, 2019 Time H&P Reviewed: 13:07 Pre-Operative Diagnosis: egpigastric abd pain, gerd, tarry stools BRENNEN PEREZ DO Jan 05, 2019 13:07
[2019-01-05] MEDS ORDERED: LACTATED RINGERS 1,000 ML IV ONE (13:15)
--- NOTE | 2019-01-05 13:24 | Progress Note-Post Operative ---
Post-Operative Progess Note Surgeon (s)/Sales Representative Groceries (s) Surgeon BRENNEN PEREZ DO Sales Representative Groceries: na Pre-Operative Diagnosis egpigastric abd pain, gerd, tarry stools Post-Operative Diagnosis Gastritis Procedure & Operative Findings Date of Procedure 01/05/19 Procedure Performed/Findings egd with biopsies Anesthesia Type per TROLLEY CLEANER Estimated Blood Loss Estimated blood loss (mL): none Specimens/Packing Specimens Removed biopsy in antrum, body and GE junction BRENNEN PEREZ DO Jan 05, 2019 13:24
[2019-01-05 13:25] VITALS: BP 84/51
--- NOTE | 2019-01-05 13:28 | Discharge Inst-Simple/Standard ---
Discharge Inst-Standard Discharge Medications New, Converted or Re-Newed RX: RX on Chart Patient Instructions/Follow Up Plan of Care/Instructions/FU: 2 weeks Martha Activity as Tolerated: Yes Discharge Diet: Other Diet (gastritis diet) BRENNEN PEREZ DO Jan 05, 2019 13:28
[2019-01-05 13:30] VITALS: BP 86/51
[2019-01-05 13:35] VITALS: BP 88/50
[2019-01-05 13:55] VITALS: BP 113/68
[2019-01-05 14:20] VITALS: BP 115/68
--- NOTE | 2019-01-05 14:50 | Anesthesia-General Post-Op ---
MAC Patient Condition Mental Status/LOC: Same as Preop Cardiovascular: Satisfactory Nausea/Vomiting: Absent Respiratory: Satisfactory Pain: Controlled Complications: Absent Post Op Complications Complications None Follow Up Care/Instructions Patient Instructions None needed. Anesthesiology Discharge Order Discharge Order Patient was seen after the procedure and she was doing well, no complaints, stable vital signs, no apparent adverse anesthesia problems. BRIELLE RAMIREZ DO Jan 05, 2019 14:50
--- NOTE | 2019-01-05 17:45 | OPERATIVE REPORT ---
DATE OF SERVICE: 01/05/2019 PREOPERATIVE DIAGNOSES: Epigastric abdominal pain, GERD, tarry stools. POSTOPERATIVE DIAGNOSIS: Gastritis. PROCEDURE: EGD with biopsy. SURGEON: Brennen Thomas DO ANESTHESIA: Per TANGLED YARN SPOOL STRAIGHTENER. ESTIMATED BLOOD LOSS: None. COMPLICATIONS: None. INDICATIONS: The patient is a 38-year-old female, who has been having epigastric abdominal pain and tarry stools. She understands risks and benefits of the procedure and wished to proceed with procedure. Consent was signed in the chart. DESCRIPTION OF PROCEDURE: The patient was taken to the endoscopy suite, placed in left lateral recumbent position. Timeout was performed. Scope was inserted in the mouth, down the esophagus, stomach and into the duodenum without difficulty. There were no polyps, masses or ulcerations within the duodenum. Scope was slowly retracted back into the stomach where it was further insufflated. Gastritis appearance throughout the majority of the stomach was present. Biopsy of the antrum and body were obtained. Scope was retroflexed noting no other pathology. Scope was returned to its normal position, slowly withdrawn to the distal esophagus and biopsy of the GE junction was obtained. Scope was then slowly retracted back to completely removing noting no other pathology. RECOMMENDATIONS: The patient will continue on current medications. Await biopsy results. She will follow up in the office in two weeks. If any worsening condition, she should be reevaluated at that time. 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
== END 2019-01-05 14:20 | disposition home or self-care (01) ==
LOC: ENDO 10:57
PROVIDERS: ATTEND Surgery
DX: K29.50 Unspecified chronic gastritis without bleeding (principal); K21.9 Gastro-esophageal reflux disease without esophagitis; K92.1 Melena; F90.9 Attention-deficit hyperactivity disorder, unspecified type; G43.909 Migraine, unspecified, not intractable, without status migrainosus; G47.33 Obstructive sleep apnea (adult) (pediatric); F41.9 Anxiety disorder, unspecified; Z88.0 Allergy status to penicillin; Z88.1 Allergy status to other antibiotic agents; Z88.2 Allergy status to sulfonamides; Z83.3 Family history of diabetes mellitus; Z80.0 Family history of malignant neoplasm of digestive organs; Z90.710 Acquired absence of both cervix and uterus; Z90.722 Acquired absence of ovaries, bilateral; Z90.79 Acquired absence of other genital organ(s); Z90.49 Acquired absence of other specified parts of digestive tract; Z79.891 Long term (current) use of opiate analgesic; Z79.899 Other long term (current) drug therapy
CPT/HCPCS: 88305; 88342

== ENCOUNTER 2019-02-20 17:47 | Emergency (ER) | payer BC ==
[~2019-02-20] VITALS: Ht 170 cm; Wt 55.0 kg
[2019-02-20] MEDS ORDERED: METO-310 PO (18:05)
[2019-02-20] MEDS ORDERED: TOPI25CA6 PO (18:05)
[2019-02-20] MEDS ORDERED: LACTATED RINGERS 1,000 ML IV ONE (18:22)
[2019-02-20 18:44] LABS: BASOPHILS % (AUTO) 0 % (0-10); EOSINOPHILS # (AUTO) 0.1 10^3/uL (0.0-0.3); EOSINOPHILS % (AUTO) 1 % (0-10); HEMATOCRIT 39 % (35-52); HEMOGLOBIN 12.8 G/DL (11.5-16.0); LYMPHOCYTES # (AUTO) 1.8 X 10^3 (1.0-4.0); LYMPHOCYTES % (AUTO) 14 % (12-44); MEAN CORPUSCULAR HEMOGLOBIN 30 PG (25-34); MEAN CORPUSCULAR HGB CONC 33 G/DL (32-36); MEAN CORPUSCULAR VOLUME 91 FL (80-99); MEAN PLATELET VOLUME 9.3 FL (7.4-10.4); MONOCYTES # (AUTO) 1.3 X 10^3 (0.0-1.0); MONOCYTES % (AUTO) 10 % (0-12); NEUTROPHILS # (AUTO) 9.5 X 10^3 (1.8-7.8); NEUTROPHILS % (AUTO) 75 % (42-75); PLATELET COUNT 364 10^3/uL (130-400); RED CELL DISTRIBUTION WIDTH 13.4 % (10.0-14.5); WHITE BLOOD COUNT 12.7 10^3/uL (4.3-11.0)
[2019-02-20 18:45] LABS: BILIRUBIN,URINE NEGATIVE (NEGATIVE); CLARITY,URINE CLEAR; COLOR,URINE YELLOW; GLUCOSE, URINE (UA) NEGATIVE (NEGATIVE); KETONES,URINE NEGATIVE (NEGATIVE); LEUKOCYTE ESTERASE ,URINE 1+ (NEGATIVE); NITRITE,URINE NEGATIVE (NEGATIVE); PH,URINE 6 (5-9); PROTEIN,URINE 1+ (NEGATIVE)
--- NOTE | 2019-02-20 18:48 | NUR ---
REPORT TO LOU DUMONT
[2019-02-20 18:54] LABS: PROTHROMBIN TIME PATIENT 13.6 SEC (12.2-14.7)
[2019-02-20 18:55] LABS: BACTERIA,URINE FEW /HPF; RBC,URINE 0-2 /HPF
[2019-02-20 19:03] LABS: ALANINE AMINOTRANSFERASE 23 U/L (0-55); ALBUMIN 3.9 GM/DL (3.2-4.5); ALKALINE PHOSPHATASE 82 U/L (40-136); AMYLASE 34 U/L (25-125); BILIRUBIN,TOTAL 0.3 MG/DL (0.1-1.0); BUN/CREATININE RATIO 15; CARBON DIOXIDE 25 MMOL/L (21-32); CHLORIDE 105 MMOL/L (98-107); CREATININE SERUM 0.62 MG/DL (0.60-1.30); GFR ESTIMATED > 60; GLUCOSE 87 MG/DL (70-105); LIPASE 43 U/L (8-78); POTASSIUM 3.6 MMOL/L (3.6-5.0); SODIUM 140 MMOL/L (135-145); TOTAL PROTEIN 6.8 GM/DL (6.4-8.2)
--- NOTE | 2019-02-20 20:13 | Diagnostic Imaging Report ---
Clinical indications: Patient with left flank and anterior abdominal pain with nausea. Patient has history of stones. Patient has surgical history of gallbladder resection, appendectomy and hysterectomy. Exam: CT exam of the abdomen and pelvis is performed without IV or oral contrast using stone protocol. Coronal and sagittal reformatted images were created. Auto Exposure Controls were utilized during the CT exam to meet ALARA standards for radiation dose reduction. Comparisons: CT scan of the abdomen and pelvis performed without contrast dated 07/13/2018. Findings: Visualized lung bases: There is mild dependent atelectasis involving the posterior aspects of both lungs. Liver: There is no significant change in the roughly 1.5 cm cyst involving the right lobe of the liver, anteriorly. Gallbladder: Again noted cholecystectomy changes. Pancreas: Unremarkable as visualized. Spleen: Unremarkable as visualized. Adrenal glands: Unremarkable. Kidneys/ ureters: Unremarkable as visualized. Aorta: Unremarkable as visualized. Intraabdominal/ retroperitoneal contents: Unremarkable. Intestines: Unremarkable as visualized. Appendix: Surgically resected. Bladder: Unremarkable as visualized. Pelvic organs: Again noted hysterectomy. Extra abdominal/ pelvis regions: Unremarkable. Abdominal wall: Unremarkable. Bones: Unremarkable. Impression: 1: There is no CT evidence of acute abdominal or pelvic process. There is no urinary tract stone seen. 2: Stable postoperative changes consistent with cholecystectomy, hysterectomy and appendectomy. 3: Stable liver cyst. Dictated by: Dictated on workstation # [id number]
[2019-02-20] MEDS ORDERED: cefTRIAXone FOR IV USE 1,000 MG in WATER (STERILE) FOR INJECTION 10 ML IV ONE (20:30)
--- NOTE | 2019-02-20 20:48 | Diagnostic Imaging Report ---
Clinical indication: Patient with fever since Friday night. Exam: Chest x-ray PA and lateral views. Comparisons: Chest x-ray dated 05/27/2018. Findings: Lungs/pleura: Lungs are clear. There is no pneumothorax. There is no pleural effusion. Mediastinum: Unremarkable. Pulmonary vasculature: Unremarkable. Heart: Unremarkable. Bones/extrathoracic soft tissue: Unremarkable. Impression: There is no radiographic evidence of acute cardiopulmonary process. Dictated by: Dictated on workstation # [id number]
--- NOTE | 2019-02-20 20:52 | Diagnostic Imaging Report ---
CLINICAL INDICATION: Patient with left flank and anterior abdominal pain with nausea. Patient has history of stones. Exam: X-ray of the abdomen with multiple supine and upright views. Comparison: CT scan of the abdomen and pelvis without contrast dated 02/20/2019. Findings: There is a nonobstructed bowel gas pattern. There is no evidence of abdominal free air. There is a small amount of stool seen throughout the colon. Surgical clips are seen overlying the right upper quadrant which could be related to cholecystectomy changes. There are no focal calcifications overlying the expected regions/ pathways of both kidneys, ureters, and bladder regions. There are surgical clips overlying the pelvis region. The visualized bones and extra abdominal soft tissues are unremarkable. IMPRESSION: There is no radiographic evidence for acute abdominal/ pelvic process or urinary tract stones. Dictated by: Dictated on workstation # [id number]
[2019-02-20] MEDS ORDERED: LEVO500T2 PO (20:58)
--- NOTE | 2019-02-20 20:58 | ED General ---
General Chief Complaint: Fever-Adult/Adol Stated Complaint: FEVER Nursing Triage Note: PT STATES HAS HAD FEVER SINCE FRIDAY DENIES COUGH OR URINARY SX. STATES DOES HAVE SOME PAIN IN L SIDE INTERMITTENTLY Nursing Sepsis Screen: No Definite Risk Allergies and Home Medications Allergies Coded Allergies: Penicillins (Unverified Allergy, Mild, HIVES, 01/01/19) sulfamethoxazole (Unverified Allergy, Mild, HIVES, 01/01/19) trimethoprim (Unverified Allergy, Mild, HIVES, 01/01/19) Home Medications Butalbital/Aspirin/Caffeine 1 Each Capsule, 1 EACH PO Q6H PRN for HEADACHE Prescribed by: LEE BOWLES on 11/04/17 1617 Dextroamphetamine/Amphetamine 20 Mg Tablet, 20 MG PO DAILY, (Reported) Dextroamphetamine/Amphetamine 30 Mg Tablet, 30 MG PO DAILY, (Reported) Past Wdjhcuh-Zswmcz-Iugdou Hx Patient Social History Alcohol Use: Occasionally Uses Recreational Drug Use: No Smoking Status: Current Everyday Smoker Type Used: Cigarettes 2nd Hand Smoke Exposure: Yes Recent Foreign Travel: No Contact w/Someone Who Travel: No Recent Infectious Disease Expo: No Recent Hopitalizations: No Physical Abuse: No Sexual Abuse: No Immunizations Up To Date Tetanus Booster (TDap): Unknown Seasonal Allergies Seasonal Allergies: Yes Past Medical History Surgeries: Yes (HERNIA REPAIR, TENDON IN WRIST) Appendectomy, Gallbladder, Hysterectomy, Tonsillectomy Respiratory: Yes Pneumonia, Sleep Apnea Cardiac: No Neurological: Yes Headaches /Migraines 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 Disorders: No Female 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 Disorders: 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, 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 Sexually Transmitted Disease: No HIV/AIDS: No Genitourinary: No Kidney Stones Gastrointestinal: Yes (epigastric pain) Gastroesophageal Reflux Musculoskeletal: Yes Arthritis, Chronic Back Pain Endocrine: No HEENT: Yes (GLASSES) Loss of Vision: Denies Hearing Impairment: Denies Cancer: No Psychosocial: Yes ADD/ADHD, Anxiety, Depression Integumentary: No Blood Disorders: No (ANEMIA) Adverse Reaction/Blood Tranf: No (N/A) Physical Exam Vital Signs Vital Signs - First Documented 02/20/19 17:55 Temp 37.4 Pulse 99 Resp 18 B/P (MAP) 131/85 (100) Pulse Ox 100 Capillary Refill : Less Than 3 Seconds Height, Weight, BMI Height: 5'7.00" Weight: 119lbs. 0.0oz. [id number]; 19.00 BMI Method:Stated Focused Exam Lactate Level 02/20/19 18:30: Lactic Acid Level 1.11 Lactic Acid Level Laboratory Tests Test 02/20/19 18:30 Lactic Acid Level 1.11 MMOL/L (0.50-2.00) Progress/Results/Core Measures Suspected Sepsis Recent Fever Within 48 Hours: Yes Infection Criteria Present: None New/Unexplained Altered Menta: No Sepsis Screen: No Definite Risk SIRS Temperature: Pulse: 99 Respiratory Rate: 18 Laboratory Tests 02/20/19 18:30: White Blood Count 12.7H Blood Pressure 131 /85 Mean: 100 02/20/19 18:30: Lactic Acid Level 1.11 Laboratory Tests 02/20/19 18:30: Creatinine 0.62, INR Comment 1.0, Platelet Count 364, Total Bilirubin 0.3 Results/Orders Lab Results Laboratory Tests Test 02/20/19 18:30 02/20/19 18:37 Range/Units White Blood Count 12.7 H 4.3-11.0 10^3/uL Red Blood Count 4.23 L 4.35-5.85 10^6/uL Hemoglobin 12.8 11.5-16.0 G/DL Hematocrit 39 35-52 % Mean Corpuscular Volume 91 80-99 FL Mean Corpuscular Hemoglobin 30 25-34 PG Mean Corpuscular Hemoglobin Concent 33 32-36 G/DL Red Cell Distribution Width 13.4 10.0-14.5 % Platelet Count 364 130-400 10^3/uL Mean Platelet Volume 9.3 7.4-10.4 FL Neutrophils (%) (Auto) 75 42-75 % Lymphocytes (%) (Auto) 14 12-44 % Monocytes (%) (Auto) 10 0-12 % Eosinophils (%) (Auto) 1 0-10 % Basophils (%) (Auto) 0 0-10 % Neutrophils # (Auto) 9.5 H 1.8-7.8 X 10^3 Lymphocytes # (Auto) 1.8 1.0-4.0 X 10^3 Monocytes # (Auto) 1.3 H 0.0-1.0 X 10^3 Eosinophils # (Auto) 0.1 0.0-0.3 10^3/uL Basophils # (Auto) 0.0 0.0-0.1 10^3/uL Prothrombin Time 13.6 12.2-14.7 SEC INR Comment 1.0 0.8-1.4 Activated Partial Thromboplast Time 35 24-35 SEC Sodium Level 140 135-145 MMOL/L Potassium Level 3.6 3.6-5.0 MMOL/L Chloride Level 105 98-107 MMOL/L Carbon Dioxide Level 25 21-32 MMOL/L Anion Gap 10 5-14 MMOL/L Blood Urea Nitrogen 9 7-18 MG/DL Creatinine 0.62 0.60-1.30 MG/DL Estimat Glomerular Filtration Rate > 60 BUN/Creatinine Ratio 15 Glucose Level 87 70-105 MG/DL Lactic Acid Level 1.11 0.50-2.00 MMOL/L Calcium Level 9.0 8.5-10.1 MG/DL Corrected Calcium 9.1 8.5-10.1 MG/DL Total Bilirubin 0.3 0.1-1.0 MG/DL Aspartate Amino Transf (AST/SGOT) 16 5-34 U/L Alanine Aminotransferase (ALT/SGPT) 23 0-55 U/L Alkaline Phosphatase 82 40-136 U/L Total Protein 6.8 6.4-8.2 GM/DL Albumin 3.9 3.2-4.5 GM/DL Amylase Level 34 25-125 U/L Lipase 43 8-78 U/L Serum Test, Qualitative NEGATIVE NEGATIVE Urine Color YELLOW Urine Clarity CLEAR Urine pH 6 5-9 Urine Specific [place] 1.015 L 1.016-1.022 Urine Protein 1+ H NEGATIVE Urine Glucose (UA) NEGATIVE NEGATIVE Urine Ketones NEGATIVE NEGATIVE Urine Nitrite NEGATIVE NEGATIVE Urine Bilirubin NEGATIVE NEGATIVE Urine Urobilinogen 1 NORMAL MG/DL Urine Leukocyte Esterase 1+ H NEGATIVE Urine RBC (Auto) 1+ H NEGATIVE Urine RBC 0-2 /HPF Urine WBC 2-5 /HPF Urine Squamous Epithelial Cells 5-10 /HPF Urine Crystals NONE /LPF Urine Bacteria FEW H /HPF Urine Casts NONE /LPF Urine Mucus MODERATE H /LPF Urine Culture Indicated YES Micro Results Microbiology 02/20/19 Influenza Types A,B Antigen (WILLIAM) - Final, Complete My Orders Orders - TIMOTHY ALVARENGA DO Cbc With Automated Diff (02/20/19 18:22) Comprehensive Metabolic Panel (02/20/19 18:22) Blood Culture (02/20/19 18:22) Urinalysis (02/20/19 18:22) Urine Culture (02/20/19 18:22) Protime With Inr (02/20/19 18:) Partial Thromboplastin Time (02/20/19 18:22) Ed Iv/Invasive Line Start (02/20/19 18:22) Ed Iv/Invasive Line Start (02/20/19 18:22) Vital Signs Adult Sepsis Patie Q15M (02/20/19 18:22) O2 (02/20/19 18:22) Remove Rings In Anticipation O (02/20/19 18:22) Lactic Acid Analyzer (02/20/19 18:22) Influenza A And B Antigens (02/20/19 18:22) Ed Iv/Invasive Line Start (02/20/19 18:) Lactated Ringers (Lr 1000 Ml Iv Solution (02/20/19 18:22) Amylase (02/20/19 18:22) Hcg,Qualitative Serum (02/20/19 18:) Lipase (02/20/19 18:22) Ct Abd/Pelvis Wo(Kidney Stone) (02/20/19 18:59) Chest Pa/Lat (2 View) (02/20/19 18:59) Abdomen, Flat & Upright/Decub (02/20/19 18:59) Ceftriaxone For Iv Use (Rocephin For I (02/20/19 20:30) Ketorolac Injection (Toradol Injection) (02/20/19 21:00) Medications Given in ED Current Medications Medications Dose Ordered Sig/Regla Route Start Time Stop Time Status Last Admin Dose Admin Ceftriaxone Sodium 1000 mg/ Sterile Water 10 ml @ 200 mls/hr ONCE ONCE IV 02/20/19 20:30 02/20/19 20:32 DC 02/20/19 20:28 200 MLS/HR Lactated Ringer's 1,000 ml @ 0 mls/hr Q0M ONCE IV 02/20/19 18:22 02/20/19 18:24 DC 02/20/19 18:39 1,000 MLS/HR Vital Signs/I&O 02/20/19 17:55 Temp 37.4 Pulse 99 Resp 18 B/P (MAP) 131/85 (100) Pulse Ox 100 Capillary Refill : Less Than 3 Seconds Blood Pressure Mean: 100 Departure Impression Primary Impression: UTI (urinary tract infection) Disposition: 01 HOME, SELF-CARE Condition: Stable Departure-Patient Inst. Referrals: KEITH BHARDWAJ MD (PCP/Family) Primary Care Physician Patient Instructions: Urinary Tract Infection, Adult (DC) Add. Discharge Instructions: LOTS OF CLEAR LIQUIDS--NO COFFEE, POP OR TEA TYLENOL AND MOTRIN NEEDED FOR PAIN OR FEVER FOLLOW UP WITH DR. BHARDWAJ IN 2-3 DAYS FOR FURTHER CARE All discharge instructions reviewed with patient and/or family. Voiced understanding. Scripts Levofloxacin (Levaquin) 500 Mg Tablet 500 MG PO DAILY for INFECTION, #10 TAB Prov: TIMOTHY ALVARENGA DO 02/20/19 TIMOTHY ALVARENGA DO Feb 20, 2019 20:58
[2019-02-20] MEDS ORDERED: KETOROLAC 30 MG/ML VIAL IVP ONE (21:00)
[2019-02-20 21:06] VITALS: BP 131/85
== END 2019-02-20 21:16 | disposition home or self-care (01) ==
LOC: EDUNIT# 17:47 → ER 17:48
DX: N39.0 Urinary tract infection, site not specified (principal); G43.909 Migraine, unspecified, not intractable, without status migrainosus; F90.9 Attention-deficit hyperactivity disorder, unspecified type; F41.9 Anxiety disorder, unspecified; F32.9 Major depressive disorder, single episode, unspecified; D64.9 Anemia, unspecified; K21.9 Gastro-esophageal reflux disease without esophagitis; F17.210 Nicotine dependence, cigarettes, uncomplicated; Z87.442 Personal history of urinary calculi; Z90.49 Acquired absence of other specified parts of digestive tract; Z90.710 Acquired absence of both cervix and uterus; Z90.89 Acquired absence of other organs; Z88.0 Allergy status to penicillin; Z88.2 Allergy status to sulfonamides; Z88.1 Allergy status to other antibiotic agents
CPT/HCPCS: 36415; 71046; 74019; 74176; 80053; 81000; 82150; 83605; 83690; 84703; 85025; 85610; 85730; 87040; 87077; 87088; 87186; 87804

== ENCOUNTER → 2019-04-21 | Outpatient (CLI) | payer BC ==
[~2019-04-21] MED LIST changes: +LEVO500T2 PO; +METO-310 PO; +TOPI25CA6 PO
[2019-04-21 10:03] LABS: ABSOLUTE RETIC # 41 10e9/L (24-90); BASOPHILS % (AUTO) 0 % (0-10); EOSINOPHILS # (AUTO) 0.2 10^3/uL (0.0-0.3); EOSINOPHILS % (AUTO) 1 % (0-10); HEMATOCRIT 43 % (35-52); HEMOGLOBIN 13.8 G/DL (11.5-16.0); LYMPHOCYTES # (AUTO) 2.5 X 10^3 (1.0-4.0); LYMPHOCYTES % (AUTO) 16 % (12-44); MEAN CORPUSCULAR HEMOGLOBIN 30 PG (25-34); MEAN CORPUSCULAR HGB CONC 32 G/DL (32-36); MEAN CORPUSCULAR VOLUME 92 FL (80-99); MEAN PLATELET VOLUME 8.8 FL (7.4-10.4); MONOCYTES # (AUTO) 0.6 X 10^3 (0.0-1.0); MONOCYTES % (AUTO) 4 % (0-12); NEUTROPHILS # (AUTO) 12.5 X 10^3 (1.8-7.8); NEUTROPHILS % (AUTO) 79 % (42-75); PLATELET COUNT 625 10^3/uL (130-400); RED CELL DISTRIBUTION WIDTH 13.8 % (10.0-14.5); RETICULOCYTE % 0.87 % (0.50-2.40); WHITE BLOOD COUNT 15.7 10^3/uL (4.3-11.0)
[2019-04-21 10:39] LABS: BAND NEUTROPHILS 1 %; NEUTROPHILS % (MANUAL) 80 %
[2019-04-21 10:40] LABS: BASOPHILS % (MANUAL) 0 %; EOSINOPHILS % (MANUAL) 1 %; LYMPHOCYTES % (MANUAL) 16 %; MONOCYTES % (MANUAL) 2 %; RBC MORPH NORMAL; TOXIC GRANULATION/VACUOLAZATIO 1+
== END ==
LOC: LAB 09:45
PROVIDERS: ATTEND Nurse Practitioner Family
DX: Z01.89 Encounter for other specified special examinations (principal)
CPT/HCPCS: 36415; 85007; 85027; 85045

== ENCOUNTER 2019-06-02 15:56 | Outpatient (RCR) | payer BC | END 2019-08-04 | disposition home or self-care (01) | LOC: ONC 15:56 | PROVIDERS: ATTEND Internal Medicine Hematology & Oncology | DX: K22.70 Barrett's esophagus without dysplasia (principal); D72.0 Genetic anomalies of leukocytes; R79.89 Other specified abnormal findings of blood chemistry; R51 Headache; R11.0 Nausea; Z90.49 Acquired absence of other specified parts of digestive tract; Z90.89 Acquired absence of other organs; Z98.890 Other specified postprocedural states; Z80.0 Family history of malignant neoplasm of digestive organs; Z72.0 Tobacco use | CPT/HCPCS: 99213; 99214 ==

== ENCOUNTER → 2020-02-16 | Outpatient (CLI) | payer BC ==
[~2020-02-16] MED LIST changes: +BARIUM for suspension 96% w/w (Vanilla Silq Medium Density) PO ONE; +BARIUM for suspension 98% w/w (Vanilla Silq High Density) PO ONE
--- NOTE | 2020-02-16 11:35 | Diagnostic Imaging Report ---
INDICATION: Ny's esophagus with nausea and vomiting and reflux. Patient ingested effervescent crystals as well as thin and thick barium and imaging over the esophagus was performed. Total of 1 minute of fluoroscopy time was utilized. Preliminary radiograph over the chest is unremarkable. The esophagus has a smooth contour. No mass or stricture is identified. No gastroesophageal reflux or hiatal hernia was demonstrated. IMPRESSION: Unremarkable esophagram. Dictated by: Dictated on workstation # [id number]
== END ==
LOC: RAD 10:45
PROVIDERS: ATTEND Surgery
DX: R13.10 Dysphagia, unspecified (principal)
CPT/HCPCS: 74220

== ENCOUNTER 2020-03-03 05:31 | Outpatient (RCR) | payer BC ==
[~2020-03-03] VITALS: Ht 170 cm; Wt 63.6 kg
[~2020-03-03 05:31] MED LIST changes: -BARIUM for suspension 96% w/w (Vanilla Silq Medium Density) PO ONE; -BARIUM for suspension 98% w/w (Vanilla Silq High Density) PO ONE; +HYDR50TA76 PO; +TOPI50TA37 PO
== END 2020-03-03 11:11 | disposition home or self-care (01) ==
LOC: PREOP 05:31
PROVIDERS: ATTEND Surgery
DX: Z01.812 Encounter for preprocedural laboratory examination (principal); K22.70 Barrett's esophagus without dysplasia; Z20.828 Contact with and (suspected) exposure to other viral communicable diseases
CPT/HCPCS: 87635

== ENCOUNTER 2020-03-07 11:56 | Day surgery (SDC) | payer BC ==
[2020-03-07] VITALS (10 sets, daily range): BP systolic 91–111; BP diastolic 55–78
[~2020-03-07] VITALS: Ht 170 cm; Wt 64.0 kg
[2020-03-07] MEDS ORDERED: LACTATED RINGERS 1,000 ML IV STA (11:58)
[2020-03-07] MEDS ORDERED: HURRICAINE EXT TUBE (BENZOCAINE) XX PRN (12:00)
[2020-03-07] MEDS ORDERED: LACTATED RINGERS 1,000 ML IV ONE (12:13)
[2020-03-07] MEDS ORDERED: MIDAZOLAM 2 MG/2 ML (VERSED) VIAL ONE (12:37)
[2020-03-07] MEDS ORDERED: PROPOFOL INJECTION 50 ML IV ONE (12:37)
--- NOTE | 2020-03-07 13:35 | Progress Note-Post Operative ---
Post-Operative Progess Note Surgeon (s)/Dairy Bar Manager (s) Surgeon BRENNEN PEREZ DO Dairy Bar Manager: na Pre-Operative Diagnosis epigastric abd pain, gerd, dysphagia Post-Operative Diagnosis GERD, Ny's esophagus Procedure & Operative Findings Date of Procedure 03/07/20 Procedure Performed/Findings EGD c biopsies Anesthesia Type per [facility] Estimated Blood Loss Estimated blood loss (mL): none Specimens/Packing Specimens Removed antrum, GE junction x4 quadrants BRENNEN PEREZ DO Mar 07, 2020 13:35
--- NOTE | 2020-03-07 13:37 | Discharge Inst-Simple/Standard ---
Discharge Inst-Standard Patient Instructions/Follow Up Plan of Care/Instructions/FU: 2 weeks Martha Activity as Tolerated: No Discharge Diet: Regular Diet BRENNEN PEREZ DO Mar 07, 2020 13:37
--- NOTE | 2020-03-07 14:24 | Anesthesia-General Post-Op ---
MAC Patient Condition Mental Status/LOC: Same as Preop Cardiovascular: Satisfactory Nausea/Vomiting: Absent Respiratory: Satisfactory Pain: Controlled Complications: Absent Post Op Complications Complications None Follow Up Care/Instructions Patient Instructions None needed. Anesthesiology Discharge Order Discharge Order Patient was seen after the procedure and she was doing well, no complaints, stable vital signs, no apparent adverse anesthesia problems. BRIELLE RAMIREZ DO Mar 07, 2020 14:24
--- NOTE | 2020-03-07 23:18 | OPERATIVE REPORT ---
DATE OF SERVICE: 03/07/2020 PREOPERATIVE DIAGNOSES: History of Ny's esophagus, epigastric abdominal pain, gastroesophageal reflux disease, dysphagia. POSTOPERATIVE DIAGNOSES: History of Ny's esophagus, gastroesophageal reflux disease, small hiatal hernia. PROCEDURE: EGD with biopsy. SURGEON: Brennen Thomas DO ANESTHESIA: Per MDA. ESTIMATED BLOOD LOSS: None. COMPLICATIONS: None. INDICATIONS: The patient is a 39-year-old female with history of Ny's. She has been having epigastric abdominal pain, gastroesophageal reflux disease and dysphagia. She understands risks and benefits of procedure and wished to proceed with procedure. Consent was signed in the chart. DESCRIPTION OF PROCEDURE: The patient was taken to the endoscopy suite, placed in left lateral recumbent position. Timeout was performed. Scope was inserted in mouth, down the esophagus, stomach and into the duodenum without difficulty. There were no polyps, masses or ulcerations within the duodenum. Scope was slowly retracted back into the stomach where it was further insufflated. Biopsy of the antrum was obtained. Scope was retroflexed noting a very small hiatal hernia, no other pathology noted. Scope was returned to its normal position, slowly withdrawn to distal esophagus. Four quadrant biopsies were obtained at the GE junction. Scope was then slowly retracted back to completely remove noting no other pathology. The patient tolerated procedure well without any complications, taken to recovery room in stable condition. RECOMMENDATIONS: The patient to continue on current medications. The patient will follow up in the office in about 2 weeks for pathology and see how her symptoms are doing at that time. Job ID: [id number] DocumentID: [id number] Dictated Date: 03/07/2020 13:40:25 Director Of Leadership Development Date: 03/07/2020 23:17:01 Dictated By: BRENNEN THOMAS DO
== END 2020-03-07 14:40 | disposition home or self-care (01) ==
LOC: ENDO 11:56
PROVIDERS: ATTEND Surgery
DX: K21.00 Gastro-esophageal reflux disease with esophagitis, without bleeding (principal); K29.50 Unspecified chronic gastritis without bleeding; K31.89 Other diseases of stomach and duodenum; K44.9 Diaphragmatic hernia without obstruction or gangrene; F90.9 Attention-deficit hyperactivity disorder, unspecified type; M06.9 Rheumatoid arthritis, unspecified; F41.9 Anxiety disorder, unspecified; F32.9 Major depressive disorder, single episode, unspecified; F17.210 Nicotine dependence, cigarettes, uncomplicated; Z79.899 Other long term (current) drug therapy; Z88.0 Allergy status to penicillin; Z88.2 Allergy status to sulfonamides

== ENCOUNTER 2020-06-14 20:49 | Emergency (ER) | payer BC ==
[~2020-06-14] VITALS: Ht 170.1 cm; Wt 65.7 kg
[2020-06-14] MEDS ORDERED: ANTACID SUSP 30 ML UDC (MYLANTA) PO ONE (21:00)
[2020-06-14] MEDS ORDERED: LIDOCAINE 2% VISCOUS 15 ML UDC PO ONE (21:00)
--- NOTE | 2020-06-14 21:01 | ED General ---
General Stated Complaint: CHEST PAIN / ARM NUMBNESS Source of Information: Patient Exam Limitations: No Limitations History of Present Illness Date Seen by Provider: Jun 14, 2020 Time Seen by Provider: 21:00 Initial Comments To ER with left lower chest pain since this morning. Pain is been constant. It is worsened by movement and deep breathing. She tried some ibuprofen and drinking some vodka (2 shots) to try to help the pain. She is never had this before. No cough. Timing/Duration: 12 Hours Severity: Moderate Allergies and Home Medications Allergies Coded Allergies: Penicillins (Verified Allergy, Mild, HIVES, 03/07/20) sulfamethoxazole (Verified Allergy, Mild, HIVES, 03/07/20) trimethoprim (Verified Allergy, Mild, HIVES, 03/07/20) Home Medications Dextroamphetamine/Amphetamine 30 Mg Tablet, 30 MG PO DAILY, (Reported) Hydroxyzine HCl 50 Mg Tablet, 50 MG PO DAILY PRN for ANXIETY, (Reported) Pantoprazole Sodium 40 Mg Tablet.dr, 40 MG PO DAILY, (Reported) Sucralfate 1 Gm Tablet, 1 GM PO ACHS, (Reported) Topiramate 50 Mg Tablet, 50 MG PO PRN, (Reported) Patient Home Medication List Home Medication List Reviewed: Yes Review of Systems Review of Systems Constitutional: see HPI EENTM: see HPI Respiratory: no symptoms reported Cardiovascular: see HPI, chest pain Genitourinary: no symptoms reported Musculoskeletal: no symptoms reported Skin: no symptoms reported Psychiatric/Neurological: No Symptoms Reported Hematologic/Lymphatic: No Symptoms Reported Immunological/Allergic: no symptoms reported Past Tgoygsh-Pagfiz-Yxljdv Hx Patient Social History Type Used: Cigarettes 2nd Hand Smoke Exposure: Yes Recent Hopitalizations: No Immunizations Up To Date Tetanus Booster (TDap): Unknown Seasonal Allergies Seasonal Allergies: Yes Past Medical History Surgeries: Yes (WRIST) Appendectomy, Gallbladder, Hysterectomy, Oophorectomy, Tonsillectomy Respiratory: No Pneumonia, Sleep Apnea Cardiac: No Neurological: Yes Headaches /Migraines 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 Disorders: Yes (MULTIPLE LAPAROSCOPIES; HYST/BSO FOR BENIGN DISEASE) Female 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 Sexually Transmitted Disease: No HIV/AIDS: No Genitourinary: Yes Kidney Stones Gastrointestinal: Yes Gastroesophageal Reflux, Ny's Esophagus, Chronic Diarrhea Musculoskeletal: Yes Arthritis, Chronic Back Pain Endocrine: No HEENT: Yes (GLASSES) Loss of Vision: Denies Hearing Impairment: Denies Cancer: No Psychosocial: Yes ADD/ADHD, Anxiety, Depression Integumentary: No Blood Disorders: Yes (HX ANEMIA) Adverse Reaction/Blood Tranf: No (N/A) Physical Exam Vital Signs Vital Signs - First Documented 06/14/20 20:53 Temp 35.8 Pulse 90 Resp 20 B/P (MAP) 123/79 (94) Pulse Ox 96 O2 Delivery Room Air Capillary Refill : Height, Weight, BMI Height: 5'7.00" Weight: 119lbs. 0.0oz. 53.151610ht; 22.14 BMI Method:Stated General Appearance: No Apparent Distress, WD/WN Eyes: Bilateral Eye Normal Inspection, Bilateral Eye PERRL Respiratory: No Accessory Muscle Use, No Respiratory Distress Cardiovascular: Regular Rate, Rhythm, Normal Peripheral Pulses Gastrointestinal: Soft, Tenderness Extremity: Normal Capillary Refill, Normal Inspection Neurologic/Psychiatric: Alert, Oriented x3 Skin: Normal Color, Warm/Dry Progress/Results/Core Measures Suspected Sepsis SIRS Temperature: Pulse: Respiratory Rate: Laboratory Tests 06/14/20 20:58: White Blood Count 14.5H Blood Pressure / Mean: Laboratory Tests 06/14/20 20:58: Creatinine 0.73, INR Comment 0.9, Platelet Count 496H, Total Bilirubin 0.1 Results/Orders Lab Results Laboratory Tests Test 06/14/20 20:58 Range/Units White Blood Count 14.5 H 4.3-11.0 10^3/uL Red Blood Count 4.64 3.80-5.11 10^6/uL Hemoglobin 14.1 11.5-16.0 g/dL Hematocrit 43 35-52 % Mean Corpuscular Volume 94 80-99 fL Mean Corpuscular Hemoglobin 30 25-34 pg Mean Corpuscular Hemoglobin Concent 33 32-36 g/dL Red Cell Distribution Width 13.9 10.0-14.5 % Platelet Count 496 H 130-400 10^3/uL Mean Platelet Volume 9.0 9.0-12.2 fL Immature Granulocyte % (Auto) 1 % Neutrophils (%) (Auto) 59 42-75 % Lymphocytes (%) (Auto) 32 12-44 % Monocytes (%) (Auto) 6 0-12 % Eosinophils (%) (Auto) 2 0-10 % Basophils (%) (Auto) 0 0-10 % Neutrophils # (Auto) 8.6 H 1.8-7.8 10^3/uL Lymphocytes # (Auto) 4.6 H 1.0-4.0 10^3/uL Monocytes # (Auto) 0.9 0.0-1.0 10^3/uL Eosinophils # (Auto) 0.3 0.0-0.3 10^3/uL Basophils # (Auto) 0.1 0.0-0.1 10^3/uL Immature Granulocyte # (Auto) 0.1 0.0-0.1 10^3/uL Neutrophils % (Manual) 70 % Lymphocytes % (Manual) 20 % Monocytes % (Manual) 6 % Eosinophils % (Manual) 4 % Blood Morphology Comment NORMAL Prothrombin Time 12.5 12.2-14.7 SEC INR Comment 0.9 0.8-1.4 Activated Partial Thromboplast Time 32 24-35 SEC D-Dimer 0.25 0.00-0.49 UG/ML Sodium Level 140 135-145 MMOL/L Potassium Level 4.5 3.6-5.0 MMOL/L Chloride Level 107 98-107 MMOL/L Carbon Dioxide Level 19 L 21-32 MMOL/L Anion Gap 14 5-14 MMOL/L Blood Urea Nitrogen 10 7-18 MG/DL Creatinine 0.73 0.60-1.30 MG/DL Estimat Glomerular Filtration Rate > 60 BUN/Creatinine Ratio 14 Glucose Level 113 H 70-105 MG/DL Calcium Level 8.7 8.5-10.1 MG/DL Corrected Calcium 8.7 8.5-10.1 MG/DL Magnesium Level 2.2 1.6-2.4 MG/DL Total Bilirubin 0.1 0.1-1.0 MG/DL Aspartate Amino Transf (AST/SGOT) 23 5-34 U/L Alanine Aminotransferase (ALT/SGPT) 21 0-55 U/L Alkaline Phosphatase 114 40-136 U/L Myoglobin 21.8 10.0-92.0 NG/ML Troponin I < 0.028 <0.028 NG/ML B-Type Natriuretic Peptide < 10.0 <100.0 PG/ML Total Protein 7.1 6.4-8.2 GM/DL Albumin 4.0 3.2-4.5 GM/DL Lipase 62 8-78 U/L Serum Test, Qualitative NEGATIVE NEGATIVE Serum Alcohol 264 H <10 MG/DL My Orders Orders - LEE BOWLES APRN Alcohol (06/14/20 20:55) Cbc With Automated Diff (06/14/20 20:55) Magnesium (06/14/20 20:55) Chest 1 View, Ap/Pa Only (06/14/20 20:55) Ekg Tracing (06/14/20 20:55) Comprehensive Metabolic Panel (06/14/20 20:55) Myoglobin Serum (06/14/20 20:55) Protime With Inr (06/14/20 20:55) Partial Thromboplastin Time (06/14/20 20:55) O2 (06/14/20 20:55) Monitor-Rhythm Ecg Trace Only (06/14/20 20:55) Lipid Panel (06/15/20 06:00) Ed Iv/Invasive Line Start (06/14/20 20:55) BNP (06/14/20 20:55) Fibrin Degradation Products (06/14/20 20:55) Troponin I (06/14/20 20:55) Antacid Suspension (Mylanta Suspension (06/14/20 21:00) Lidocaine 2% Viscous 15 Ml (Xylocaine Vi (06/14/20 21:00) Lipase (06/14/20 20:59) Hcg,Qualitative Serum (06/14/20 20:59) Manual Differential (06/14/20 20:58) Ketorolac Injection (Toradol Injection) (06/14/20 21:45) Medications Given in ED Current Medications Medications Dose Ordered Sig/Regla Route Start Time Stop Time Status Last Admin Dose Admin Al Hydrox/Mg Hydrox/Simethicone 30 ml ONCE ONCE PO 06/14/20 21:00 06/14/20 21:01 DC 06/14/20 21:02 30 ML Lidocaine HCl 10 ml ONCE ONCE PO 06/14/20 21:00 06/14/20 21:01 DC 06/14/20 21:02 10 ML Vital Signs/I&O 06/14/20 06/14/20 20:53 20:53 Temp 35.8 Pulse 90 Resp 20 B/P (MAP) 123/79 (94) Pulse Ox 96 O2 Delivery Room Air Capillary Refill : Departure Impression Primary Impression: Chest wall pain Additional Impressions: Alcohol intoxication Costochondritis Disposition: 01 HOME, SELF-CARE Condition: Stable Departure-Patient Inst. Decision time for Depature: 21:41 Referrals: NO,LOCAL PHYSICIAN (PCP/Family) Primary Care Physician Patient Instructions: Costochondritis Add. Discharge Instructions: 1. Return to ER for any concerns 2. Follow-up with your doctor next week 3. Tylenol and ibuprofen for pain control. Images Torso/Trunk 1 - Tenderness LEE BOWLES APRN Jun 14, 2020 21:01
[2020-06-14 21:06] LABS: BASOPHILS # (AUTO) 0.1 10^3/uL (0.0-0.1); BASOPHILS % (AUTO) 0 % (0-10); EOSINOPHILS # (AUTO) 0.3 10^3/uL (0.0-0.3); EOSINOPHILS % (AUTO) 2 % (0-10); HEMATOCRIT 43 % (35-52); HEMOGLOBIN 14.1 g/dL (11.5-16.0); LYMPHOCYTES # (AUTO) 4.6 10^3/uL (1.0-4.0); LYMPHOCYTES % (AUTO) 32 % (12-44); MEAN CORPUSCULAR HEMOGLOBIN 30 pg (25-34); MEAN CORPUSCULAR HGB CONC 33 g/dL (32-36); MEAN CORPUSCULAR VOLUME 94 fL (80-99); MONOCYTES # (AUTO) 0.9 10^3/uL (0.0-1.0); MONOCYTES % (AUTO) 6 % (0-12); NEUTROPHILS # (AUTO) 8.6 10^3/uL (1.8-7.8); NEUTROPHILS % (AUTO) 59 % (42-75); PLATELET COUNT 496 10^3/uL (130-400); WHITE BLOOD COUNT 14.5 10^3/uL (4.3-11.0)
--- NOTE | 2020-06-14 21:16 | Diagnostic Imaging Report ---
INDICATION: Chest pain. EXAMINATION: Chest, 06/14/2020. COMPARISON: 02/20/2019. FINDINGS: Single view chest. The cardiomediastinal silhouette is unremarkable. The pulmonary vasculature is within normal limits. The lungs and pleural spaces are clear. IMPRESSION: No evidence of an acute cardiopulmonary process. Dictated by: Dictated on workstation # [id number]
[2020-06-14 21:30] LABS: ALANINE AMINOTRANSFERASE 21 U/L (0-55); ALKALINE PHOSPHATASE 114 U/L (40-136); BILIRUBIN,TOTAL 0.1 MG/DL (0.1-1.0); BUN/CREATININE RATIO 14; CALCIUM 8.7 MG/DL (8.5-10.1); CARBON DIOXIDE 19 MMOL/L (21-32); CHLORIDE 107 MMOL/L (98-107); CREATININE SERUM 0.73 MG/DL (0.60-1.30); GFR ESTIMATED > 60; GLUCOSE 113 MG/DL (70-105); MAGNESIUM 2.2 MG/DL (1.6-2.4); POTASSIUM 4.5 MMOL/L (3.6-5.0); SODIUM 140 MMOL/L (135-145); TOTAL PROTEIN 7.1 GM/DL (6.4-8.2)
[2020-06-14 21:31] LABS: LIPASE 62 U/L (8-78)
[2020-06-14 21:37] LABS: INR 0.9 (0.8-1.4); PROTHROMBIN TIME PATIENT 12.5 SEC (12.2-14.7)
[2020-06-14 21:43] LABS: EOSINOPHILS % (MANUAL) 4 %; LYMPHOCYTES % (MANUAL) 20 %; MONOCYTES % (MANUAL) 6 %; NEUTROPHILS % (MANUAL) 70 %; RBC MORPH NORMAL
[2020-06-14] MEDS ORDERED: KETOROLAC 30 MG/ML VIAL IVP ONE (21:45)
[2020-06-14 21:55] VITALS: BP 97/72
== END 2020-06-14 21:55 | disposition home or self-care (01) ==
LOC: EDUNIT# 20:49 → ER 20:51
DX: R07.89 Other chest pain (principal); F10.129 Alcohol abuse with intoxication, unspecified; M94.0 Chondrocostal junction syndrome [Tietze]; K21.9 Gastro-esophageal reflux disease without esophagitis; F41.9 Anxiety disorder, unspecified; G43.909 Migraine, unspecified, not intractable, without status migrainosus; Z77.22 Contact with and (suspected) exposure to environmental tobacco smoke (acute) (chronic); Z88.0 Allergy status to penicillin; Z88.2 Allergy status to sulfonamides; Z88.1 Allergy status to other antibiotic agents
CPT/HCPCS: 71045; 80053; 83690; 83735; 83874; 83880; 84484; 84703; 85007; 85027; 85379; 85610; 85730; 93005; 93041; 99284; G0480; 36415; 80320

== ENCOUNTER 2022-01-16 06:33 | Outpatient (CLI) | payer BC, OTHER ==
[~2022-01-16] VITALS: Ht 170.2 cm; Wt 70.3 kg
[2022-01-16] MEDS ORDERED: BACL20TA PO (13:44)
[2022-01-16] MEDS ORDERED: ARIP15TA20 PO (13:44)
[2022-01-16] MEDS ORDERED: IBUP-1780 PO (13:44)
[2022-01-16] MEDS ORDERED: ETOD400T3 PO (13:44)
[2022-01-16] MEDS ORDERED: HYOS-6 PO (13:44)
[2022-01-16] MEDS ORDERED: AMPH25CA3 PO (13:44)
[2022-01-16] MEDS ORDERED: HYDR-3781 PO (13:44)
== END 2022-01-16 13:46 | disposition home or self-care (01) ==
LOC: PREOP 06:33
PROVIDERS: ATTEND Surgery
DX: Z01.818 Encounter for other preprocedural examination (principal)

== ENCOUNTER 2022-01-22 11:00 | Day surgery (SDC) | payer BC, OTHER ==
[~2022-01-22] VITALS: Ht 170 cm; Wt 70.3 kg
[~2022-01-22 11:00] MED LIST changes: +AMPH25CA3 PO; +ARIP15TA20 PO; +BACL20TA PO; +ETOD400T3 PO; +HYDR-3781 PO; +HYOS-6 PO; +IBUP-1780 PO
[2022-01-22] MEDS ORDERED: LACTATED RINGERS 1,000 ML IV STA (11:04)
[2022-01-22 11:15] VITALS: BP 106/69
[2022-01-22] MEDS ORDERED: HURRICAINE EXT TUBE (BENZOCAINE) XX PRN (11:15)
--- NOTE | 2022-01-22 11:33 | Progress Note-Pre Operative ---
Pre-Operative Progress Note Date of Available H&P: Jan 14, 2022 Date H&P Reviewed: Jan 22, 2022 Time H&P Reviewed: 11:32 History & Physical: H&P Reviewed, Patient Examed, No changes noted Pre-Operative Diagnosis: hx norris's, epigastric pain, gerd, nausea and v omiting. BRENNEN PEREZ DO Jan 22, 2022 11:33
[2022-01-22] MEDS ORDERED: PROPOFOL INJECTION 50 ML IV ONE (12:45)
[2022-01-22] MEDS ORDERED: MIDAZOLAM 2 MG/2 ML (VERSED) VIAL ONE (12:45)
--- NOTE | 2022-01-22 13:19 | Discharge Inst-Simple/Standard ---
Discharge Inst-Standard Patient Instructions/Follow Up Plan of Care/Instructions/FU: 2 weeks khushboo Activity as Tolerated: Yes Discharge Diet: Regular Diet BRENNEN PEREZ DO Jan 22, 2022 13:19
[2022-01-22 13:20] VITALS: BP 105/55
[2022-01-22 13:25] VITALS: BP 104/61
[2022-01-22 13:30] VITALS: BP 113/60
[2022-01-22 14:00] VITALS: BP 108/76
--- NOTE | 2022-01-22 14:01 | Anesthesia-General Post-Op ---
MAC Patient Condition Mental Status/LOC: Same as Preop Cardiovascular: Satisfactory Nausea/Vomiting: Absent Respiratory: Satisfactory Pain: Controlled Complications: Absent Post Op Complications Complications None Follow Up Care/Instructions Patient Instructions None needed. Anesthesiology Discharge Order Discharge Order Patient is doing well, no complaints, stable vital signs, no apparent adverse anesthesia problems. No complications reported per nursing. TITI MORLEY CRNA Jan 22, 2022 14:01
--- NOTE | 2022-01-22 17:41 | OPERATIVE REPORT ---
DATE OF SERVICE: 01/22/2022 PREOPERATIVE DIAGNOSES: History of Ny's epigastric abdominal pain, gastroesophageal reflux disease, nausea and vomiting. POSTOPERATIVE DIAGNOSIS: Small hiatal hernia. PROCEDURE: EGD with biopsies. SURGEON: Brennen Thomas DO ANESTHESIA: Per APPRENTICE COSMETOLOGIST. ESTIMATED BLOOD LOSS: None. COMPLICATIONS: None. INDICATIONS: The patient is a 41-year-old female with history of Ny's. She is having epigastric abdominal pain, gastroesophageal reflux disease, nausea and vomiting. She understands risks and benefits of procedure and wishes to proceed. Consent was signed in the chart. DESCRIPTION OF PROCEDURE: The patient was taken to the endoscopy suite, placed in left lateral recumbent position. Timeout was performed. Scope was inserted in the mouth, down the esophagus, stomach and into the duodenum without difficulty. There were no polyps, masses or ulcerations in the duodenum. Scope was slowly retracted back into the stomach where it was further insufflated. No polyps, masses or ulcerations in the stomach. Scope was retroflexed noting a small hiatal hernia, no other pathology. The scope was returned to its normal position. Biopsy of the antrum was obtained. Scope was then slowly retracted back into the distal esophagus. No polyps, masses or ulcerations. Four quadrant biopsies were obtained of the distal esophagus. Scope was then slowly retracted back until completely removed. The patient tolerated procedure well without any complications. She was taken to recovery room in stable condition. RECOMMENDATIONS: The patient will need repeat EGD in 2 to 3 years due to the history of Ny's. She will follow up in the office in couple of weeks to go over biopsy results. Continue on current medications. Job ID: [id number] DocumentID: [id number] Dictated Date: 01/22/2022 13:21:33 Machine Room Operator Date: 01/22/2022 17:40:21 Dictated By: BRENNEN THOMAS DO
--- NOTE | 2022-01-22 18:12 | Anesthesia-General Post-Op ---
MAC Patient Condition Mental Status/LOC: Same as Preop Cardiovascular: Satisfactory Nausea/Vomiting: Absent Respiratory: Satisfactory Pain: Controlled Complications: Absent Post Op Complications Complications None Follow Up Care/Instructions Patient Instructions None needed. Anesthesiology Discharge Order Discharge Order Patient is doing well, no complaints, stable vital signs, no apparent adverse anesthesia problems. No complications reported per nursing. ROMAN FARFAN CRNA Jan 22, 2022 18:12
== END 2022-01-22 14:01 | disposition home or self-care (01) ==
LOC: ENDO 11:00
PROVIDERS: ATTEND Surgery
DX: K31.89 Other diseases of stomach and duodenum (principal); K31.A11 Gastric intestinal metaplasia without dysplasia, involving the antrum; K44.9 Diaphragmatic hernia without obstruction or gangrene; K21.00 Gastro-esophageal reflux disease with esophagitis, without bleeding; F17.210 Nicotine dependence, cigarettes, uncomplicated

== ENCOUNTER 2022-07-06 18:45 | Emergency (ER) | payer SELFPAY ==
[~2022-07-06] VITALS: Ht 170 cm; Wt 72.0 kg
[2022-07-06 19:43] VITALS: BP 148/105
--- NOTE | 2022-07-06 19:58 | ED Psychosocial ---
General Chief Complaint: Psych/Social Disorder Stated Complaint: PANIC ATTACK Source: patient Exam Limitations: no limitations (NICKI HOWARD) History of Present Illness Date Seen by Provider: Jul 06, 2022 Time Seen by Provider: 19:52 Initial Comments Patient is a 42-year-old female with a history anxiety, bipolar, depression who presents ED for panic attack. She states 1 hour before arrival she started having chest tightness, shortness of breath and tingling in her hands. Patient hyperventilating on arrival. She has a history of anxiety with frequent panic attacks. She has been on hydroxyzine and Abilify in the past but she has not been taking her medication for the past month. Recently moved to the area. She is currently homeless. She reports drinking 2 shots of liquor today. Denies of any drug use. Denies any urinary symptoms, abdominal pain, cough, headache, dizziness. Denies any suicidal homicidal thoughts. Patient currently lives in her car. (NICKI HOWARD) Allergies and Home Medications Allergies Coded Allergies: Penicillins (Verified Allergy, Mild, HIVES, 03/07/20) sulfamethoxazole (Verified Allergy, Mild, HIVES, 03/07/20) trimethoprim (Verified Allergy, Mild, HIVES, 03/07/20) Patient Home Medication List Home Medication List Reviewed: Yes (NICKI HOWARD) Aripiprazole (Aripiprazole) 15 Mg Tablet, 15 MG PO DAILY, (Reported) Entered as Reported by: JANESSA PINEDA on 01/16/22 134 Aripiprazole (Aripiprazole) 15 Mg Tablet, 15 MG PO DAILY Prescribed by: NAIDA ROBLERO on 07/06/222030 Last Action: New Order Baclofen (Baclofen) 20 Mg Tablet, 20 MG PO DAILY, (Reported) Entered as Reported by: JANESSA PINEDA on 01/16/22 1344 Dextroamphetamine/Amphetamine (Adderall Xr 25 mg Capsule) 25 Mg Cap.er.24h, 25 MG PO DAILY, (Reported) Entered as Reported by: JANESSA PINEDA on 01/16/22 1344 Etodolac (Etodolac) 400 Mg Tablet, 400 MG PO TID, (Reported) Entered as Reported by: JANESSA PINEDA on 01/16/22 1344 Hydroxyzine HCl (Hydroxyzine HCl) 50 Mg Tablet, 50 MG PO Q6H PRN for ANXIETY Prescribed by: NAIDA ROBLERO on 07/06/222030 Last Action: New Order Hydroxyzine Pamoate (Hydroxyzine Pamoate) 25 Mg Capsule, 25 MG PO PRN, (Reported) Entered as Reported by: JANESSA PINEDA on 01/16/22 1344 Hyoscyamine Sulfate (Hyoscyamine Sulfate) 0.125 Mg Tab.rapdis, 0.125 MG PO PRN, (Reported) Entered as Reported by: JANESSA PINEDA on 01/16/22 1344 Ibuprofen (Ibuprofen) 800 Mg Tablet, 800 MG PO Q8H PRN for PAIN-MILD, (Reported) Entered as Reported by: JANESSA PINEDA on 01/16/22 1344 Topiramate (Topamax) 50 Mg Tablet, 50 MG PO PRN, (Reported) Entered as Reported by: ANNELIESE RAMOS on 02/29/20 1129 Review of Systems Constitutional: No chills, No diaphoresis, No malaise, No weakness EENTM: No hearing loss, No blurred vision, No double vision, No hoarseness, No mouth pain, No mouth swelling, No throat pain Respiratory: No cough, No orthopnea; short of breath; No wheezing Cardiovascular: chest pain Gastrointestinal: No abdominal pain, No diarrhea, No nausea, No vomiting Genitourinary: No decreased output, No discharge Musculoskeletal: No back pain, No joint pain Skin: No change in color, No change in hair/nails (NICKI HOWARD) All Other Systems Reviewed Negative Unless Noted: Yes (NICKI HOWARD) Past Evilalb-Qemimw-Lkxgcm Hx Patient Social History Tobacco Use?: Yes Tobacco type used: Cigarettes Smoking Status: Current Everyday Smoker Use of E-Cig and/or Vaping dev: No Substance use?: No Alcohol Use?: Yes Alcohol Frequency: Couple times a week Pt feels they are or have been: No (NICKI HOWARD) Immunizations Up To Date Tetanus Booster (TDap): Unknown First/Initial COVID19 Vaccinat: NO Second COVID19 Vaccination Pavel: NO Third COVID19 Vaccination Date: NO (NICKI HOWARD) Seasonal Allergies Seasonal Allergies: Yes (NICKI HOWARD) Past Medical History Surgery/Hospitalization HX: ANXIETY Surgeries: Yes (WRIST) Appendectomy, Gallbladder, Hysterectomy, Oophorectomy, Tonsillectomy Respiratory: No Pneumonia, Sleep Apnea Cardiac: No Neurological: Yes Headaches /Migraines 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 Disorders: Yes (MULTIPLE LAPAROSCOPIES; HYST/BSO FOR BENIGN DISEASE) Female 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 Sexually Transmitted Disease: No HIV/AIDS: No Genitourinary: Yes Kidney Stones Gastrointestinal: Yes Gastroesophageal Reflux, Ny's Esophagus, Chronic Diarrhea Musculoskeletal: Yes Arthritis, Chronic Back Pain Endocrine: No HEENT: Yes (GLASSES) Loss of Vision: Denies Hearing Impairment: Denies Cancer: No Psychosocial: Yes ADD/ADHD, Anxiety, Depression Integumentary: No Blood Disorders: Yes (HX ANEMIA) Adverse Reaction/Blood Tranf: No (N/A) (NICKI HOWARD) Physical Exam Vital Signs - First Documented 07/06/22 19:43 Temp 35.7 Pulse 105 Resp 24 B/P (MAP) 148/105 (119) Pulse Ox 94 O2 Delivery Room Air (COLETTE,TIMOTHY K DO) Capillary Refill : (NICKI HOWARD) Height, Weight, BMI Height: 5'7.00" Weight: 119lbs. 0.0oz. 53.780454tk; 24.32 BMI Method:Stated General Appearance: WD/WN, no apparent distress HEENT: PERRL/EOMI, normal ENT inspection, TMs normal, pharynx normal Neck: non-tender, full range of motion, supple Respiratory: chest non-tender, lungs clear, normal breath sounds, no respiratory distress, no accessory muscle use Cardiovascular: regular rate, rhythm, no edema, no gallop, no JVD Gastrointestinal: normal bowel sounds, non tender, soft, no organomegaly, no pulsatile mass Extremities: normal range of motion, non-tender, normal inspection Neurologic/Psychiatric: office correspondent II-XII nml as tested, no motor/sensory deficits, alert, normal mood/affect, oriented x 3 Appearance/Memory: appropriate appearance, appropriate insight Behavior/Eye Contact: cooperative, good eye contact Thoughts/Hallucinations: normal thought pattern, no apparent hallucination, other (anxious) Skin: normal color, warm/dry (NICKI HOWARD) Progress/Results/Core Measures Results/Orders Medications Given in ED Current Medications Medications Dose Ordered Sig/Regla Route Start Time Stop Time Status Last Admin Dose Admin Lorazepam 1 mg ONCE ONCE PO 07/06/22 20:00 07/06/22 20:01 DC 07/06/22 20:13 1 MG (COLETTE,TIMOTHY K DO) Vital Signs/I&O 07/06/22 19:43 Temp 35.7 Pulse 105 Resp 24 B/P (MAP) 148/105 (119) Pulse Ox 94 O2 Delivery Room Air (COLETTE,TIMOTHY K DO) Departure Communication (PCP) Patient is a 42-year-old female with a history anxiety, bipolar presents ED for panic attack. She reports acute onset 1 hour ago. Patient hyperventilating on arrival. Respiratory control measures preformed. Reviewed previous ER visit, lab testing, medications. She has been out of her Abilify and hydroxyzine for the past month. Scheduled to follow-up with [facility] mental health on the . Patient was given 1 mg Ativan p.o. with improvement of her symptoms. She is homeless and lives in her car. She is requesting something to eat which was provided. Patient's symptoms improved. She was observed here in the ER and rested before discharge. She states that she did have 2 shots of liquor this afternoon. Allow patient to sober up before she left. She has no suicidal or homicidal thoughts. She did not provide a urine sample. Patient will be discharged. (NICKI HOWARD) Impression Primary Impression: Anxiety Disposition: HOME, SELF-CARE Condition: Stable Departure-Patient Inst. Decision time for Depature: 20:30 (NICKI HOWARD) Referrals: NO,LOCAL PHYSICIAN (Family) Primary Care Physician [facility] [place] Patient Instructions: Anxiety, Adult (DC) Scripts Hydroxyzine HCl (Hydroxyzine HCl) 50 Mg Tablet 50 MG PO Q6H PRN for ANXIETY, #12 TAB Prov: NICKI HOWARD 07/06/22 Aripiprazole (Aripiprazole) 15 Mg Tablet 15 MG PO DAILY, #10 TAB Prov: NICKI HOWARD 07/06/22 ATTENDING PHYSICIAN NOTE: I WAS PHYSICALLY PRESENT ER PHYSICIAN, BUT I WAS NOT INVOLVED IN ANY DECISION MAKING OR ANY CARE OF THIS PATIENT AND I AM NOT COLLABORATING PHYSICIAN. (TIMOTHY ALVARENGA DO) NICKI HOWARD Jul 06, 2022 19:58 TIMOTHY ALVARENGA DO Jul 07, 2022 04:10
[2022-07-06] MEDS ORDERED: LORazepam 1 MG (ATIVAN) TAB PO ONE (20:00)
[2022-07-06] MEDS ORDERED: ARIP15TA20 PO (20:31)
[2022-07-06] MEDS ORDERED: HYDR50TA76 PO (20:31)
== END 2022-07-06 22:39 | disposition home or self-care (01) ==
LOC: EDUNIT# 18:45 → ER 18:46
DX: F41.9 Anxiety disorder, unspecified (principal); F31.9 Bipolar disorder, unspecified; F17.210 Nicotine dependence, cigarettes, uncomplicated; Z79.899 Other long term (current) drug therapy; Z91.14 Patient's other noncompliance with medication regimen; Z59.02 Unsheltered homelessness
CPT/HCPCS: 99281

== ENCOUNTER 2022-09-04 16:31 | Emergency (ER) | payer SELFPAY ==
[~2022-09-04] VITALS: Ht 170 cm; Wt 72.0 kg
--- NOTE | 2022-09-04 17:17 | ED Lower Extremity ---
General Chief Complaint: Lower Extremity Stated Complaint: LEFT KNEE PAIN Nursing Triage Note: STATES SHE TWEAKED HER LEFT KNEE GOING DOWN THE STAIRS TODAY. DID NOT FALL. Source: patient Exam Limitations: no limitations (NICKI HOWARD) History of Present Illness Date Seen by Provider: September 04, 2022 Time Seen by Provider: 17:14 Initial Comments Patient is a 42-year-old female presents ED left knee pain. She states around 12:00 today she was walking down the stairs. Her boot got caught in stone wall. She states she hyperextended her knee. She felt a pop. Since then she has reports her left knee wanting to give out. Denies of any significant swelling. Pain with ambulation. She took Tylenol at home without much improvement. No history of previous fracture. She is concern for potential ligament injury. Pain with flexion and extension. Denies fever, chills, nausea vomit, diarrhea (NICKI HOWARD) Allergies and Home Medications Allergies Coded Allergies: Penicillins (Verified Allergy, Mild, HIVES, 03/07/20) sulfamethoxazole (Verified Allergy, Mild, HIVES, 03/07/20) trimethoprim (Verified Allergy, Mild, HIVES, 03/07/20) Patient Home Medication List Home Medication List Reviewed: Yes (NICKI HOWARD) Aripiprazole (Aripiprazole) 15 Mg Tablet, 15 MG PO DAILY, (Reported) Entered as Reported by: JANESSA PINEDA on 01/16/22 134 Aripiprazole (Aripiprazole) 15 Mg Tablet, 15 MG PO DAILY Prescribed by: NAIDA ROBLERO on 07/06/222030 Baclofen (Baclofen) 20 Mg Tablet, 20 MG PO DAILY, (Reported) Entered as Reported by: JANESSA PINEDA on 01/16/22 1344 Dextroamphetamine/Amphetamine (Adderall Xr 25 mg Capsule) 25 Mg Cap.er.24h, 25 MG PO DAILY, (Reported) Entered as Reported by: JANESSA PINEDA on 01/16/22 1344 Etodolac (Etodolac) 400 Mg Tablet, 400 MG PO TID, (Reported) Entered as Reported by: JANESSA PINEDA on 01/16/22 1344 Hydrocodone/Acetaminophen (Hydrocodone-Acetamin 5-325 mg) 5 Mg-325 Mg Tablet, 1 TAB PO Q4H PRN for PAIN-MODERATE (5-7) Prescribed by: NAIDA ROBLERO on 09/04/22 173 Hydroxyzine HCl (Hydroxyzine HCl) 50 Mg Tablet, 50 MG PO Q6H PRN for ANXIETY Prescribed by: NAIDA ROBLERO on 07/06/222030 Hydroxyzine Pamoate (Hydroxyzine Pamoate) 25 Mg Capsule, 25 MG PO PRN, (Reported) Entered as Reported by: JANESSA PINEDA on 01/16/22 1344 Hyoscyamine Sulfate (Hyoscyamine Sulfate) 0.125 Mg Tab.rapdis, 0.125 MG PO PRN, (Reported) Entered as Reported by: JANESSA PINEDA on 01/16/22 134 Ibuprofen (Ibuprofen) 800 Mg Tablet, 800 MG PO Q8H PRN for PAIN-MILD, (Reported) Entered as Reported by: JANESSA PINEDA on 01/16/22 134 Ibuprofen (Ibuprofen) 600 Mg Tablet, 600 MG PO Q6H Prescribed by: NAIDA ROBLERO on 09/04/221736 Topiramate (Topamax) 50 Mg Tablet, 50 MG PO PRN, (Reported) Entered as Reported by: ANNELIESE RAMOS on 02/29/20 1129 Review of Systems Constitutional: No chills, No diaphoresis, No malaise, No weakness EENTM: No ear pain, No blurred vision Respiratory: No cough, No dyspnea on exertion Cardiovascular: No chest pain, No edema Gastrointestinal: No abdominal pain, No diarrhea, No nausea, No vomiting Genitourinary: No decreased output, No discharge Musculoskeletal: No back pain; joint pain, joint swelling Skin: No change in color, No change in hair/nails (NICKI HOWARD) All Other Systems Reviewed Negative Unless Noted: Yes (NICKI HOWARD) Past Vvdzxuv-Jxesbn-Wnaxbu Hx Patient Social History Tobacco Use?: Yes Tobacco type used: Cigarettes Substance use?: No Alcohol Use?: Yes Alcohol Frequency: Once in a while (NICKI HOWARD) Immunizations Up To Date Tetanus Booster (TDap): Unknown First/Initial COVID19 Vaccinat: NO Second COVID19 Vaccination Pavel: NO Third COVID19 Vaccination Date: NO (NICKI HOWARD) Seasonal Allergies Seasonal Allergies: Yes (NICKI HOWARD) Past Medical History Surgery/Hospitalization HX: ANXIETY Surgeries: Yes ([facility]) Appendectomy, Gallbladder, Hysterectomy, Oophorectomy, Tonsillectomy Respiratory: No Pneumonia, Sleep Apnea Cardiac: No Neurological: Yes Headaches /Migraines 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 Disorders: Yes (MULTIPLE LAPAROSCOPIES; HYST/BSO FOR BENIGN DISEASE) Female 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 Sexually Transmitted Disease: No HIV/AIDS: No Genitourinary: Yes Kidney Stones Gastrointestinal: Yes Gastroesophageal Reflux, Ny's Esophagus, Chronic Diarrhea Musculoskeletal: Yes Arthritis, Chronic Back Pain Endocrine: No HEENT: Yes (GLASSES) Loss of Vision: Denies Hearing Impairment: Denies Cancer: No Psychosocial: Yes ADD/ADHD, Anxiety, Depression Integumentary: No Blood Disorders: Yes (HX ANEMIA) Adverse Reaction/Blood Tranf: No (N/A) (NICKI HOWARD) Physical Exam Vital Signs Vital Signs - First Documented 09/04/22 16:39 Temp 36.6 Pulse 99 Resp 16 B/P (MAP) 104/72 (83) Pulse Ox 95 O2 Delivery Room Air (KIMBERLY QUIROZ MD) Vital Signs Capillary Refill : Less Than 3 Seconds (NICKI HOWARD) Height, Weight, BMI Height: 5'7.00" Weight: 119lbs. 0.0oz. 53.896298nh; 24.00 BMI Method:Stated General Appearance: WD/WN, no apparent distress HEENT: PERRL/EOMI, normal ENT inspection, TMs normal, pharynx normal Neck: non-tender, full range of motion, supple, normal inspection Cardiovascular: regular rate, rhythm, no edema, no gallop, no JVD Respiratory: chest non-tender, lungs clear, normal breath sounds, no respiratory distress, no accessory muscle use Gastrointestinal: normal bowel sounds, non tender, soft, no organomegaly, no pulsatile mass Back: normal inspection, no CVA tenderness, no vertebral tenderness Knees: left knee pain, left knee soft tissue tenderness, left knee swelling, left knee other (Normal patella tracking. No laxity or pain with valgus or varus stress. No significant laxity with anterior posterior drawer test without pain. 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 Differential diagnosis, knee sprain, knee fracture, meniscus tear. Initial x-ray read by myself did not show any acute fracture. Radiologist did not note any acute fracture but a small joint effusion. Patient refused anything for pain At this time. She was requesting somthing stronger for at home. She is able to ambulate. Discussed knee brace for support. Discussed rest. Avoid excessive walking, bending. Recommend walking on even ground. Provided dose of pain medication as needed. Ibuprofen daily. Recommend orthopedic follow-up in the next 1 to 2 weeks. Knee brace for support. If any worsening symptoms return back to ED. Concerning for knee sprain. Limited exam but did not note any significant laxity. Possible ligament tear versus meniscus tear. Further imaging may be needed. (NICKI HOWARD) Impression Primary Impression: Knee sprain Disposition: 01 HOME, SELF-CARE Condition: Stable Departure-Patient Inst. Decision time for Depature: 17:35 (NICKI HOWARD) Referrals: TOMY TALAVERA APRN (PCP) Primary Care Physician Patient Instructions: Knee Sprain ED Add. Discharge Instructions: Recommend rest, range of motion exercises, ice, knee brace. Anti-inflammatories to help with pain and swelling. Breakthrough pain with hydrocodone. Recommend orthopedic outpatient follow-up in the next 1 to 2 weeks. All discharge instructions reviewed with patient and/or family. Voiced understan mitali. Scripts Hydrocodone/Acetaminophen (Hydrocodone-Acetamin 5-325 mg) 5 Mg-325 Mg Tablet 1 TAB PO Q4H PRN for PAIN-MODERATE (5-7), #8 TAB Prov: NICKI HOWARD 09/04/22 Ibuprofen (Ibuprofen) 600 Mg Tablet 600 MG PO Q6H for PAIN, #20 TAB 0 Refills Prov: NICKI HOWARD 09/04/22 Work/School Note: Work Release Form Date Seen in the Emergency Department: September 04, 2022 Return to Work: September 09, 2022 Other Restrictions Listed Below: Avoid excessive walking or standing for 1-2 weeks ATTENDING PHYSICIAN NOTE: I was physically present as attending physician in the emergency department during the care of this patient, but I was not directly involved in the decision making or delivery of care for this patient. (KIMBERLY QUIROZ MD) NICKI HOWARD September 04, 2022 17:17 KIMBERLY QUIROZ MD September 06, 2022 06:31
--- NOTE | 2022-09-04 17:30 | Diagnostic Imaging Report ---
INDICATION: Knee pain. EXAMINATION: Left knee from 09/04/2022. FINDINGS: Three views of the knee. There is a small joint effusion area. No acute fractures or dislocations appreciated. IMPRESSION: No acute osseous abnormality. Dictated by: Dictated on workstation # [id number]
[2022-09-04] MEDS ORDERED: ACHD5005 PO (17:37)
[2022-09-04] MEDS ORDERED: IBUP-1773 PO (17:37)
[2022-09-04 17:47] VITALS: BP 109/73
== END 2022-09-04 17:47 | disposition home or self-care (01) ==
LOC: EDUNIT# 16:31 → ER 16:36
DX: S83.92XA Sprain of unspecified site of left knee, initial encounter (principal); F17.210 Nicotine dependence, cigarettes, uncomplicated; Z28.310 Unvaccinated for COVID-19; X50.0XXA Overexertion from strenuous movement or load, initial encounter; Y93.01 Activity, walking, marching and hiking
CPT/HCPCS: 73562

== ENCOUNTER 2022-09-07 19:57 | Emergency (ER) | payer SELFPAY ==
[~2022-09-07 19:57] MED LIST changes: +IBUP-1773 PO
--- NOTE | 2022-09-07 20:26 | ED Lower Extremity ---
General Chief Complaint: Lower Extremity Stated Complaint: INJ LEFT FOOT/ANKLE Source: patient Exam Limitations: no limitations (NICKI HOWARD) History of Present Illness Date Seen by Provider: September 07, 2022 Time Seen by Provider: 20:23 Initial Comments Patient is a 42-year-old female presents ED with left leg pain and swelling. Symptoms started today. She noted some swelling and pain since earlier this afternoon. She states she was seen here on September 04 concerning for left knee meniscus versus ligament tear. She has been using Topher wrap for support. She was discharged with pain medication but states she has 1 day worth of pain medication. She has been having pain to the left knee with some instability. Now she reports pain and swelling distally of the left knee. Patient denies of any chest pain, shortness of breath, cough, fever, headache. No history of DVT. Not currently on anticoagulants . she states she has been wearing the Topher wrap daily. She did remove the brace 1 hour ago and still noted the swelling. Pain is described as sharp and radiates downward. Patient denies of any falls. Patient denies of any new falls (NICKI HOWARD) Allergies and Home Medications Allergies Coded Allergies: Penicillins (Verified Allergy, Mild, HIVES, 03/07/20) sulfamethoxazole (Verified Allergy, Mild, HIVES, 03/07/20) trimethoprim (Verified Allergy, Mild, HIVES, 03/07/20) Patient Home Medication List Home Medication List Reviewed: Yes (GABRIEL MCCARTHY MD) Aripiprazole (Aripiprazole) 15 Mg Tablet, 15 MG PO DAILY, (Reported) Entered as Reported by: JANESSA PINEDA on 01/16/22 1344 Aripiprazole (Aripiprazole) 15 Mg Tablet, 15 MG PO DAILY Prescribed by: NAIDA ROBLERO on 07/06/222030 Baclofen (Baclofen) 20 Mg Tablet, 20 MG PO DAILY, (Reported) Entered as Reported by: JANESSA PINEDA on 01/16/22 1344 Dextroamphetamine/Amphetamine (Adderall Xr 25 mg Capsule) 25 Mg Cap.er.24h, 25 MG PO DAILY, (Reported) Entered as Reported by: JANESSA PINEDA on 01/16/22 1344 Etodolac (Etodolac) 400 Mg Tablet, 400 MG PO TID, (Reported) Entered as Reported by: JANESSA PINEDA on 01/16/22 1344 Hydrocodone/Acetaminophen (Hydrocodone-Acetamin 5-325 mg) 5 Mg-325 Mg Tablet, 1 TAB PO Q4H PRN for PAIN-MODERATE (5-7) Prescribed by: NAIDA ROBLERO on 09/04/22 1737 Hydroxyzine HCl (Hydroxyzine HCl) 50 Mg Tablet, 50 MG PO Q6H PRN for ANXIETY Prescribed by: NAIDA ROBLERO on 07/06/22 203 Hydroxyzine Pamoate (Hydroxyzine Pamoate) 25 Mg Capsule, 25 MG PO PRN, (Reported ) Entered as Reported by: JANESSA PINEDA on 01/16/22 1344 Hyoscyamine Sulfate (Hyoscyamine Sulfate) 0.125 Mg Tab.rapdis, 0.125 MG PO PRN, (Reported) Entered as Reported by: JANESSA PINEDA on 01/16/22 1344 Ibuprofen (Ibuprofen) 800 Mg Tablet, 800 MG PO Q8H PRN for PAIN-MILD, (Reported) Entered as Reported by: JANESSA PINEDA on 01/16/22 1344 Ibuprofen (Ibuprofen) 600 Mg Tablet, 600 MG PO Q6H Prescribed by: NAIDA ROBLERO on 09/04/22 1737 Naproxen (Naproxen) 500 Mg Tablet, 500 MG PO Q12H Prescribed by: NAIDA ROBLERO on 09/07/22 2123 Topiramate (Topamax) 50 Mg Tablet, 50 MG PO PRN, (Reported) Entered as Reported by: ANNELIESE RAMOS on 02/29/20 1129 Review of Systems Constitutional: No chills, No diaphoresis, No fever, No malaise, No weakness EENTM: No hearing loss, No ear pain, No double vision Respiratory: No cough, No dyspnea on exertion Cardiovascular: No chest pain, No edema Gastrointestinal: No abdominal pain, No constipation, No diarrhea, No nausea Genitourinary: No decreased output, No discharge, No dysuria, No frequency Musculoskeletal: No back pain, No joint pain Skin: No change in color, No change in hair/nails (NICKI HOWARD) All Other Systems Reviewed Negative Unless Noted: Yes (NICKI HOWARD) Past Apyltpa-Jsnpwt-Pgscoe Hx Patient Social History Tobacco Use?: Yes Tobacco type used: Cigarettes Smoking Status: Current Everyday Smoker Alcohol Use?: Yes Alcohol Frequency: Once in a while (NICKI HOWARD) Immunizations Up To Date Tetanus Booster (TDap): Unknown First/Initial COVID19 Vaccinat: NO Second COVID19 Vaccination Pavel: NO Third COVID19 Vaccination Date: NO (NICKI HOWARD) Seasonal Allergies Seasonal Allergies: Yes (NICKI HOWARD) Past Medical History Surgery/Hospitalization HX: ANXIETY Surgeries: Yes ([facility]) Appendectomy, Gallbladder, Hysterectomy, Oophorectomy, Tonsillectomy Respiratory: No Pneumonia, Sleep Apnea Cardiac: No Neurological: Yes Headaches /Migraines 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 Disorders: Yes (MULTIPLE LAPAROSCOPIES; HYST/BSO FOR BENIGN DISEASE) Female 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 Sexually Transmitted Disease: No HIV/AIDS: No Genitourinary: Yes Kidney Stones Gastrointestinal: Yes Gastroesophageal Reflux, Ny's Esophagus, Chronic Diarrhea Musculoskeletal: Yes Arthritis, Chronic Back Pain Endocrine: No HEENT: Yes (GLASSES) Loss of Vision: Denies Hearing Impairment: Denies Cancer: No Psychosocial: Yes ADD/ADHD, Anxiety, Depression Integumentary: No Blood Disorders: Yes (HX ANEMIA) Adverse Reaction/Blood Tranf: No (N/A) (NICKI HOWARD) Physical Exam Vital Signs Vital Signs - First Documented 09/07/22 20:05 Temp 36.8 Pulse 99 Resp 16 B/P (MAP) 122/84 (97) Pulse Ox 96 (GABRIEL MCCARTHY MD) Vital Signs Capillary Refill : (NICKI HOWARD) Height, Weight, BMI Height: 5'7.00" Weight: 119lbs. 0.0oz. 53.738478xt; 24.00 BMI Method:Stated General Appearance: WD/WN, no apparent distress HEENT: PERRL/EOMI, normal ENT inspection, TMs normal, pharynx normal Neck: non-tender, full range of motion, supple, normal inspection Cardiovascular: regular rate, rhythm, no edema, no gallop, no JVD Respiratory: chest non-tender, lungs clear, normal breath sounds, no respiratory distress, no accessory muscle use Gastrointestinal: normal bowel sounds, non tender, soft, no organomegaly Back: normal inspection, no CVA tenderness Hips: bilateral hip non-tender, bilateral hip normal inspection, bilateral hip normal range of motion Legs: left leg pain, left leg soft tissue tenderness Knees: left knee pain, left knee soft tissue tenderness, left knee swelling Ankles: bilateral ankle non-tender, bilateral ankle normal inspection, bilateral ankle normal range of motion Feet: bilateral foot non-tender, bilateral foot normal inspection, bilateral foot normal range of motion (NICKI HOWARD) Progress/Results/Core Measures Results/Orders Lab Results Laboratory Tests Test 09/07/22 20:30 Range/Units D-Dimer 0.24 0.00-0.49 UG/ML (GABRIEL MCCARTHY MD) Medications Given in ED Current Medications Medications Dose Ordered Sig/Regla Route Start Time Stop Time Status Last Admin Dose Admin Acetaminophen/ Hydrocodone Bitart 1 ea ONCE ONCE PO 09/07/22 21:30 09/07/22 21:31 DC 09/07/22 21:29 1 EA (GABRIEL MCCARTHY MD) Vital Signs/I&O 09/07/22 09/07/22 20:05 21:30 Temp 36.8 36.8 Pulse 99 99 Resp 16 16 B/P (MAP) 122/84 (97) 122/84 Pulse Ox 96 96 (GABRIEL MCCARTHY MD) Departure Communication (PCP) Patient presents ED with left lower leg pain. She was seen here 3 days ago concerning for ACL or meniscus injury of the left knee. Her left knee x-ray was negative for fracture at that time. She was discharged with some pain medication which she has been taking. Today's concern as she is having pain and swelling to the left lower extremity. She reports immobilization. No history of DVT or on blood thinners. Denies chest pain or shortness of breath. No recent new falls. Differential diagnosis DVT, edema, muscle strain, knee sprain. D-dimer was ordered which was negative. Rule out DVT. I suspect the swelling is secondary to her Topher wrap that she has been wearing. I recommend at home not to wear her Topher wrap as tight especially if she is sitting. Elevate and ice. She needs a follow-up orthopedic regarding the left knee. Recommend a knee brace. Range of motion exercises and PT as recommended (NICKI HOWARD) Impression Primary Impression: Leg pain Disposition: HOME, SELF-CARE Condition: Stable Departure-Patient Inst. Decision time for Depature: 21:21 (NICKI HOWARD) Referrals: TOYM TALAVERA APRN (PCP) Primary Care Physician TITI STUBBS MD Patient Instructions: Knee Pain Add. Discharge Instructions: Need to follow-up with orthopedic for further evaluation of the left knee. Recommend loosening your Topher wrap. Swelling likely secondary to the Topher wrap. All discharge instructions reviewed with patient and/or family. Voiced understanding. Scripts Naproxen (Naproxen) 500 Mg Tablet 500 MG PO Q12H, #20 TAB Prov: NICKI HOWARD 09/07/22 Work/School Note: Work Release Form Date Seen in the Emergency Department: September 07, 2022 Return to Work: September 09, 2022 NIKCI HOWARD September 07, 2022 20:26 GABRIEL MCCARTHY MD September 08, 2022 07:17
[2022-09-07] MEDS ORDERED: NAPR-915 PO (21:23)
[2022-09-07 21:30] VITALS: BP 122/84
[2022-09-07] MEDS ORDERED: HYDROcodone/APAP 5 MG/325 MG (LORTAB) TAB PO ONE (21:30)
== END 2022-09-07 21:31 | disposition home or self-care (01) ==
LOC: EDUNIT# 19:57 → ER 19:59
DX: M25.462 Effusion, left knee (principal); M25.562 Pain in left knee; F17.210 Nicotine dependence, cigarettes, uncomplicated; Z28.310 Unvaccinated for COVID-19
CPT/HCPCS: 36415; 85379; 99283

== ENCOUNTER 2023-01-10 09:30 | Emergency (ER) | payer OTHER ==
[~2023-01-10] VITALS: Ht 170 cm; Wt 72.5 kg
[~2023-01-10 09:30] MED LIST changes: +NAPR-915 PO
[2023-01-10] MEDS ORDERED: NS IV 1000 ML 1,000 ML IV STA (10:12)
[2023-01-10] MEDS ORDERED: KETOROLAC INJ 30 MG/ML VIAL IVP STA (10:12)
[2023-01-10 10:14] LABS: BASOPHILS % (AUTO) 0 % (0-10); EOSINOPHILS # (AUTO) 0.1 10^3/uL (0.0-0.3); EOSINOPHILS % (AUTO) 1 % (0-10); HEMATOCRIT 45 % (35-52); HEMOGLOBIN 15.2 g/dL (11.5-16.0); LYMPHOCYTES # (AUTO) 1.3 10^3/uL (1.0-4.0); LYMPHOCYTES % (AUTO) 9 % (12-44); MEAN CORPUSCULAR HEMOGLOBIN 32 pg (25-34); MEAN CORPUSCULAR HGB CONC 34 g/dL (32-36); MEAN CORPUSCULAR VOLUME 93 fL (80-99); MEAN PLATELET VOLUME 10.1 fL (9.0-12.2); MONOCYTES % (AUTO) 7 % (0-12); NEUTROPHILS # (AUTO) 11.5 10^3/uL (1.8-7.8); NEUTROPHILS % (AUTO) 82 % (42-75); PLATELET COUNT 460 10^3/uL (130-400); WHITE BLOOD COUNT 13.9 10^3/uL (4.3-11.0)
[2023-01-10 10:16] LABS: ALBUMIN 4.3 GM/DL (3.2-4.5); CHLORIDE 89 MMOL/L (98-107); POTASSIUM 3.3 MMOL/L (3.6-5.0); SODIUM 131 MMOL/L (135-145)
[2023-01-10 10:17] LABS: CALCIUM 9.1 MG/DL (8.5-10.1)
[2023-01-10 10:19] LABS: GLUCOSE 117 MG/DL (70-105); PROTHROMBIN TIME PATIENT 13.3 SEC (12.2-14.7); TOTAL PROTEIN 7.7 GM/DL (6.4-8.2)
[2023-01-10 10:20] LABS: CARBON DIOXIDE 26 MMOL/L (21-32)
[2023-01-10 10:22] LABS: ALKALINE PHOSPHATASE 156 U/L (40-136)
[2023-01-10 10:23] LABS: CREATININE SERUM 0.77 MG/DL (0.60-1.30); GFR ESTIMATED 99
[2023-01-10 10:24] LABS: BUN/CREATININE RATIO 10; FIBRIN DEGRADATION PRODUCTS 0.53 UG/ML (0.00-0.49)
[2023-01-10 10:25] LABS: ALANINE AMINOTRANSFERASE 41 U/L (0-55); MAGNESIUM 1.5 MG/DL (1.6-2.4)
--- NOTE | 2023-01-10 10:30 | Diagnostic Imaging Report ---
INDICATION: Right-sided chest pain with inspiration. Portable chest 10:23 AM Heart size and pulmonary vascularity are normal. Lungs are clear. There are no effusions or pneumothoraces. IMPRESSION: Negative chest Dictated by: Dictated on workstation # [id number]
--- NOTE | 2023-01-10 10:57 | ED General ---
General Chief Complaint: Cough/Cold/Flu Symptoms Stated Complaint: RT SIDE CHEST PAIN | BODY ACHES | CHILLS Nursing Triage Note: pt presents to ed with complaints of cp on the r side starting at 0300 this am. pt worse with inspiration and movement/position change. pt also reports body aches, chills, nausea. Source of Information: Patient Exam Limitations: No Limitations History of Present Illness Date Seen by Provider: Jan 10, 2023 Time Seen by Provider: 10:06 Initial Comments Here with 2 to 3 days of diarrhea and body aches and chills. Started having chest pain today at 3 AM right side. Denies nausea or vomiting. She went to work today but was not feeling well and let them know that she was going to have to leave and came here. Does have some upper respiratory symptoms with this. Her main concern is the right sided chest pain and diarrhea. She has had previous cholecystectomy, appendectomy and hysterectomy. No report of blood in stool or urine. She has not had cardiac events previously. Timing/Duration: 2-3 Days, Getting Worse Severity: Moderate Associated Systoms: Chest Pain; No Cough, No Shortness of Air, No Weakness Allergies and Home Medications Allergies Coded Allergies: Penicillins (Verified Allergy, Mild, HIVES, 03/07/20) sulfamethoxazole (Verified Allergy, Mild, HIVES, 03/07/20) trimethoprim (Verified Allergy, Mild, HIVES, 03/07/20) Patient Home Medication List Home Medication List Reviewed: Yes Aripiprazole (Aripiprazole) 15 Mg Tablet, 15 MG PO DAILY, (Reported) Entered as Reported by: JANESSA PINEDA on 01/16/22 1344 Aripiprazole (Aripiprazole) 15 Mg Tablet, 15 MG PO DAILY Prescribed by: NAIDA ROBLERO on 07/06/222030 Baclofen (Baclofen) 20 Mg Tablet, 20 MG PO DAILY, (Reported) Entered as Reported by: JANESSA PINEDA on 01/16/22 1344 Dextroamphetamine/Amphetamine (Adderall Xr 25 mg Capsule) 25 Mg Cap.er.24h, 25 MG PO DAILY, (Reported) Entered as Reported by: JANESSA PINEDA on 01/16/22 1344 Etodolac (Etodolac) 400 Mg Tablet, 400 MG PO TID, (Reported) Entered as Reported by: JANESSA PINEDA on 01/16/22 1344 Hydrocodone/Acetaminophen (Hydrocodone-Acetamin 5-325 mg) 5 Mg-325 Mg Tablet, 1 TAB PO Q4H PRN for PAIN-MODERATE (5-7) Prescribed by: NAIDA ROBLERO on 09/04/22 173 Hydroxyzine HCl (Hydroxyzine HCl) 50 Mg Tablet, 50 MG PO Q6H PRN for ANXIETY Prescribed by: NAIDA ROBLERO on 07/06/22 203 Hydroxyzine Pamoate (Hydroxyzine Pamoate) 25 Mg Capsule, 25 MG PO PRN, (Reporte d) Entered as Reported by: JANESSA PINEDA on 01/16/22 134 Hyoscyamine Sulfate (Hyoscyamine Sulfate) 0.125 Mg Tab.rapdis, 0.125 MG PO PRN, (Reported) Entered as Reported by: JANESSA PINEDA on 01/16/22 134 Ibuprofen (Ibuprofen) 800 Mg Tablet, 800 MG PO Q8H PRN for PAIN-MILD, (Reported) Entered as Reported by: JANESSA PINEDA on 01/16/22 1344 Ibuprofen (Ibuprofen) 600 Mg Tablet, 600 MG PO Q6H Prescribed by: NAIDA ROBLERO on 09/04/22 173 Naproxen (Naproxen) 500 Mg Tablet, 500 MG PO Q12H Prescribed by: NAIDA ROBLERO on 09/07/222122 Topiramate (Topamax) 50 Mg Tablet, 50 MG PO PRN, (Reported) Entered as Reported by: ANNELIESE RAMOS on 02/29/20 1129 Review of Systems Review of Systems Constitutional: see HPI; No chills; malaise EENTM: nose congestion; No throat pain Respiratory: No cough, No short of breath Cardiovascular: chest pain; No edema Gastrointestinal: abdominal pain, diarrhea Genitourinary: No dysuria Musculoskeletal: No back pain; muscle pain Skin: no symptoms reported Psychiatric/Neurological: No Symptoms Reported Past Pabuqlx-Hfjada-Tymabi Hx Patient Social History Tobacco Use?: Yes Smoking Status: Current Everyday Smoker Substance use?: No Alcohol Use?: Yes Alcohol Frequency: Once in a while Pt feels they are or have been: No Immunizations Up To Date Tetanus Booster (TDap): Unknown First/Initial COVID19 Vaccinat: NO Second COVID19 Vaccination Pavel: NO Third COVID19 Vaccination Date: NO Seasonal Allergies Seasonal Allergies: Yes Past Medical History Surgery/Hospitalization HX: barrets espohagus, depression, anxiety, adhd, migraines, rbbb sx: t/a, hysterectomy Surgeries: Yes (WRIST) Appendectomy, Gallbladder, Hysterectomy, Oophorectomy, Tonsillectomy Respiratory: No Pneumonia, Sleep Apnea Cardiac: No Neurological: Yes Headaches /Migraines 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 Disorders: Yes (MULTIPLE LAPAROSCOPIES; HYST/BSO FOR BENIGN DISEASE) Female 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 Disorders: Denies [employer] History: Hysterectomy Sexually Transmitted Disease: No HIV/AIDS: No Genitourinary: Yes Kidney Stones Gastrointestinal: Yes Gastroesophageal Reflux, Ny's Esophagus, Chronic Diarrhea Musculoskeletal: Yes Arthritis, Chronic Back Pain Endocrine: No HEENT: Yes (GLASSES) Loss of Vision: Denies Hearing Impairment: Denies Cancer: No Psychosocial: Yes ADD/ADHD, Anxiety, Depression Integumentary: No Blood Disorders: Yes (HX ANEMIA) Adverse Reaction/Blood Tranf: No (N/A) Family Medical History Reviewed Nursing Family Hx Physical Exam Vital Signs Vital Signs - First Documented 01/10/23 09:53 Temp 37.1 Pulse 109 Resp 22 B/P (MAP) 125/86 (99) Pulse Ox 97 Capillary Refill : Less Than 3 Seconds Height, Weight, BMI Height: 5'7.00" Weight: 119lbs. 0.0oz. 53.471872lw; 25.00 BMI Method:Stated General Appearance: No Apparent Distress, WD/WN HEENT: PERRL/EOMI, Pharynx Normal Neck: Non Tender, Supple Respiratory: Lungs Clear, Normal Breath Sounds Cardiovascular: No Murmur, Tachycardia Gastrointestinal: Soft; No Guarding, No Rebound; Tenderness (Upper abdominal tenderness is mild) Back: Normal Inspection, No CVA Tenderness, No Vertebral Tenderness Extremity: Normal Range of Motion, Non Tender Neurologic/Psychiatric: Alert, Oriented x3 Progress/Results/Core Measures Suspected Sepsis SIRS Temperature: Pulse: 109 Respiratory Rate: 22 Laboratory Tests 01/10/23 09:47: White Blood Count 13.9H Blood Pressure 125 /86 Mean: 99 Laboratory Tests 01/10/23 09:47: Creatinine 0.77, INR Comment 1.0, Platelet Count 460H, Total Bilirubin 1.0 Results/Orders Lab Results Laboratory Tests Test 01/10/23 09:47 Range/Units White Blood Count 13.9 H 4.3-11.0 10^3/uL Red Blood Count 4.78 3.80-5.11 10^6/uL Hemoglobin 15.2 11.5-16.0 g/dL Hematocrit 45 35-52 % Mean Corpuscular Volume 93 80-99 fL Mean Corpuscular Hemoglobin 32 25-34 pg Mean Corpuscular Hemoglobin Concent 34 32-36 g/dL Red Cell Distribution Width 15.1 H 10.0-14.5 % Platelet Count 460 H 130-400 10^3/uL Mean Platelet Volume 10.1 9.0-12.2 fL Immature Granulocyte % (Auto) 1 % Neutrophils (%) (Auto) 82 H 42-75 % Lymphocytes (%) (Auto) 9 L 12-44 % Monocytes (%) (Auto) 7 0-12 % Eosinophils (%) (Auto) 1 0-10 % Basophils (%) (Auto) 0 0-10 % Neutrophils # (Auto) 11.5 H 1.8-7.8 10^3/uL Lymphocytes # (Auto) 1.3 1.0-4.0 10^3/uL Monocytes # (Auto) 1.0 0.0-1.0 10^3/uL Eosinophils # (Auto) 0.1 0.0-0.3 10^3/uL Basophils # (Auto) 0.0 0.0-0.1 10^3/uL Immature Granulocyte # (Auto) 0.1 0.0-0.1 10^3/uL Prothrombin Time 13.3 12.2-14.7 SEC INR Comment 1.0 0.8-1.4 Activated Partial Thromboplast Time 35 24-35 SEC D-Dimer 0.53 H 0.00-0.49 UG/ML Sodium Level 131 L 135-145 MMOL/L Potassium Level 3.3 L 3.6-5.0 MMOL/L Chloride Level 89 L 98-107 MMOL/L Carbon Dioxide Level 26 21-32 MMOL/L Anion Gap 16 H 5-14 MMOL/L Blood Urea Nitrogen 8 7-18 MG/DL Creatinine 0.77 0.60-1.30 MG/DL Estimat Glomerular Filtration Rate 99 BUN/Creatinine Ratio 10 Glucose Level 117 H 70-105 MG/DL Calcium Level 9.1 8.5-10.1 MG/DL Corrected Calcium 8.9 8.5-10.1 MG/DL Magnesium Level 1.5 L 1.6-2.4 MG/DL Total Bilirubin 1.0 0.1-1.0 MG/DL Aspartate Amino Transf (AST/SGOT) 52 H 5-34 U/L Alanine Aminotransferase (ALT/SGPT) 41 0-55 U/L Alkaline Phosphatase 156 H 40-136 U/L Myoglobin 28.1 10.0-92.0 NG/ML Troponin I < 0.028 <0.028 NG/ML C-Reactive Protein High Sensitivity 5.66 H 0.00-0.50 MG/DL Total Protein 7.7 6.4-8.2 GM/DL Albumin 4.3 3.2-4.5 GM/DL Influenza Type A (RT-PCR) Not Detected Not Detecte Influenza Type B (RT-PCR) Not Detected Not Detecte SARS-CoV-2 RNA (RT-PCR) Not Detected Not Detecte My Orders Orders - GABRIEL MCCARTHY MD Ekg Tracing (01/10/23 09:44) Cbc With Automated Diff (01/10/23 10:06) Magnesium (01/10/23 10:06) Chest 1 View, Ap/Pa Only (01/10/23 10:06) Ekg Tracing (01/10/23 10:06) Comprehensive Metabolic Panel (01/10/23 10:06) Myoglobin Serum (01/10/23 10:06) Protime With Inr (01/10/23 10:06) Partial Thromboplastin Time (01/10/23 10:06) O2 (01/10/23 10:06) Monitor-Rhythm Ecg Trace Only (01/10/23 10:06) Lipid Panel (01/11/23 06:00) Ed Iv/Invasive Line Start (01/10/23 10:06) Fibrin Degradation Products (01/10/23 10:06) Troponin I [place] (01/10/23 10:06) Hs C Reactive Protein (01/10/23 10:06) Influenza A And B By Pcr (01/10/23 10:06) Covid 19 Inhouse Test (01/10/23 10:06) Ketorolac Injection (Ketorolac Injection (01/10/23 10:12) Ns Iv 1000 Ml (Ns Iv 1000 Ml) (01/10/23 10:12) Ct Abdomen/Pelvis W (01/10/23 12:03) Ns Iv 500 Ml (Ns Iv 500 Ml) (01/10/23 12:15) Iohexol Injection (Omnipaque 350 Mg/Ml 1 (01/10/23 12:15) Received Contrast (Hold Metformin- Contr (01/10/23 12:15) Ns (Ivpb) 100 Ml (Sodium Chloride 0.9% 1 (01/10/23 12:15) Medications Given in ED Current Medications Medications Dose Ordered Sig/Regla Route Start Time Stop Time Status Last Admin Dose Admin Iohexol 100 ml ONCE ONCE IV 01/10/23 12:15 01/10/23 12:16 DC 01/10/23 12:16 80 ML Sodium Chloride 100 ml ONCE ONCE IV 01/10/23 12:15 01/10/23 12:16 DC 01/10/23 12:16 80 ML Sodium Chloride 500 ml @ 0 mls/hr Q0M ONCE IV 01/10/23 12:15 01/10/23 12:16 DC 01/10/23 12:43 0 MLS/HR Vital Signs/I&O 01/10/23 09:53 Temp 37.1 Pulse 109 Resp 22 B/P (MAP) 125/86 (99) Pulse Ox 97 Capillary Refill : Less Than 3 Seconds Blood Pressure Mean: 99 Progress Note : Progress Note Seen and evaluated. Chest pain protocol initiated including IV, lab, EKG and chest x-ray. Labs include CBC, CMP, coags, troponin, D-dimer and viral panel with COVID and influenza test. ASA 324 mg p.o., normal saline 1 L bolus and Toradol 30 mg IV ordered for pain. Monitor patient. Differential diagnosis viral etiology including COVID and influenza, cardiac event, pneumonia, upper abdominal disturbances including bowel inflammation, electrolyte abnormality and dehydration 05/06/2003: Labs reviewed and CBC shows slightly elevated white count of 13.9 with. Coags are okay but D-dimer slightly elevated at 0.53 which is nonconcerning. Chemistry shows slightly low sodium and chloride with slightly low potassium and normal creatinine and slightly elevated glucose. LFTs were okay. Troponin is negative. CRP is elevated at 5.66 and COVID and flu are negative. Chest x-ray shows no acute findings on my interpretation. We will go ahead and get CT abdomen and pelvis due to persistent pain although better and repeat normal saline at 500 mL bolus. Monitor patient. 1334: CT abdomen and pelvis reviewed by me and I do not see any obvious abscess or free air on my interpretation. Radiology report reviewed and noted as below. Overall she is doing better and I do not see any significant abnormalities. Likely viral etiology. This was discussed with the patient. Discharged home with return precautions. Patient verbalized understanding of instructions and agreement with plan. ECG Initial ECG Impression Date: Jan 10, 2023 Initial ECG Impression Time: 09:47 Initial ECG Rate: 108 Initial ECG Rhythm: S.Tach Comment Sinus tachycardia with normal axis. Incomplete right bundle branch block. No evidence of ST elevation NH. Interpreted by me. Diagnostic Imaging Diagonstic Imaging: Xray Plain Films/CT/US/NM/MRI: chest Comments [facility], [place] NAME: DENA DOWNS [employer] REC#: [id number] PT STATUS: REG ER : 1980 PHYSICIAN: GABRIEL MCCARTHY MD ADMIT DATE: 01/10/23/ER Draft Date of Exam:01/10/23 CHEST 1 VIEW, AP/PA ONLY INDICATION: Right-sided chest pain with inspiration. Portable chest 10:23 AM Heart size and pulmonary vascularity are normal. Lungs are clear. There are no effusions or pneumothoraces. IMPRESSION: Negative chest Dictated on workstation # [id number] Dict: 01/10/23 1026 Trans: 01/10/23 1029 [facility] [id number] Interpreted by: GABRIEL VILLARREAL MD Electronically signed by: Diagonstic Imaging: CT Plain Films/CT/US/NM/MRI: abdomen, pelvis Comments [facility] [place] [place] NAME: DENA DOWNS [employer] REC#: [id number] PT STATUS: REG ER : 1980 PHYSICIAN: GABRIEL MCCARTHY MD ADMIT DATE: 01/10/23/ER Draft Date of Exam:01/10/23 CT ABDOMEN/PELVIS W PROCEDURE: CT abdomen and pelvis with contrast. TECHNIQUE: Multiple contiguous axial images were obtained through the abdomen and pelvis after administration of intravenous contrast. Auto Exposure Controls were utilized during the CT exam to meet ALARA standards for radiation dose reduction. All CT scans use one or more of the following dose optimizing techniques: Automated exposure control, MA and/or KvP adjustment based on patient size and exam type or iterative reconstruction. INDICATION: Right-sided chest pain and abdominal pain as well as body aches and chills. Comparison is made with prior CT from 02/20/2019. FINDINGS: The lung bases are clear of acute infiltrates. Diffuse low attenuation throughout the liver is noted consistent with hepatic steatosis. Probable cyst in the left lobe appears stable. Gallbladder is surgically absent. There is no biliary ductal dilatation. Pancreas and spleen are unremarkable. No adrenal mass is identified. The kidneys are unremarkable. No calculi or hydronephrosis is identified. The aorta is nonaneurysmal. There is a small fat-containing umbilical hernia. Bowel loops are normal in caliber. No definite obstruction is identified. There are occasional diverticula present in the descending and sigmoid colon, but no evidence of acute diverticulitis. There is no ascites. No fluid collection or free air is identified. Bladder is unremarkable. Uterus appears to be surgically absent. IMPRESSION: 1. Hepatic steatosis and hepatic cyst. 2. Uncomplicated diverticulosis. 3. No acute feature in the abdomen or pelvis is identified. Dictated on workstation # [id number] Dict: 01/10/23 1232 Trans: 01/10/23 1239 [id number] Interpreted by: JELENA RALPH MD Electronically signed by: Departure Impression Primary Impression: Viral syndrome Additional Impressions: Diarrhea Qualified Codes: R19.7 - Diarrhea, unspecified Dehydration Chest pain Qualified Codes: R07.9 - Chest pain, unspecified Disposition: 01 HOME, SELF-CARE Condition: Stable Departure-Patient Inst. Decision time for Depature: 13:35 Referrals: TOMY TALAVERA APRN (PCP) Primary Care Physician Patient Instructions: Chest Pain, Adult ED, Dehydration, Adult ED, Viral Syndrome (DC), Diarrhea, Adult ED Add. Discharge Instructions: All discharge instructions reviewed with patient and/or family. Voiced understanding. Clear a light diet for the next 24 hours and then advance as tolerated. Drink plenty of fluids by taking small sips frequently. You may take ibuprofen 600 mg every 8 hours as needed for pain. You may also take Tylenol/acetaminophen 1000 mg every 8 hours as needed for pain. You should rest for the next 1 to 2 days and then resume activities. Follow-up with your doctor early next week for recheck and further evaluation. Return for worse pain, fever, vomiting, weakness, breathing problems or other concerns as needed. Work/School Note: Work Release Form Date Seen in the Emergency Department: Jan 10, 2023 Return to Work: Jan 12, 2023 Restrictions: No Restrictions GBARIEL MCCARTHY MD Jan 10, 2023 10:57
[2023-01-10] MEDS ORDERED: HOLD METFORMIN - RECEIVED CONTRAST 20 ML VIAL IV SCH (12:15)
[2023-01-10] MEDS ORDERED: NS 100 ML (IVPB) BAG IV ONE (12:15)
[2023-01-10] MEDS ORDERED: IOHEXOL 350 MG/ML 100 ML (OMNIPAQUE 350) VIAL IV ONE (12:15)
[2023-01-10] MEDS ORDERED: NS IV 500 ML 500 ML IV ONE (12:15)
--- NOTE | 2023-01-10 12:39 | Diagnostic Imaging Report ---
PROCEDURE: CT abdomen and pelvis with contrast. TECHNIQUE: Multiple contiguous axial images were obtained through the abdomen and pelvis after administration of intravenous contrast. Auto Exposure Controls were utilized during the CT exam to meet ALARA standards for radiation dose reduction. All CT scans use one or more of the following dose optimizing techniques: Automated exposure control, MA and/or KvP adjustment based on patient size and exam type or iterative reconstruction. INDICATION: Right-sided chest pain and abdominal pain as well as body aches and chills. Comparison is made with prior CT from 02/20/2019. FINDINGS: The lung bases are clear of acute infiltrates. Diffuse low attenuation throughout the liver is noted consistent with hepatic steatosis. Probable cyst in the left lobe appears stable. Gallbladder is surgically absent. There is no biliary ductal dilatation. Pancreas and spleen are unremarkable. No adrenal mass is identified. The kidneys are unremarkable. No calculi or hydronephrosis is identified. The aorta is nonaneurysmal. There is a small fat-containing umbilical hernia. Bowel loops are normal in caliber. No definite obstruction is identified. There are occasional diverticula present in the descending and sigmoid colon, but no evidence of acute diverticulitis. There is no ascites. No fluid collection or free air is identified. Bladder is unremarkable. Uterus appears to be surgically absent. IMPRESSION: 1. Hepatic steatosis and hepatic cyst. 2. Uncomplicated diverticulosis. 3. No acute feature in the abdomen or pelvis is identified. Dictated by: Dictated on workstation # [id number]
[2023-01-10 13:46] VITALS: BP 101/67
== END 2023-01-10 13:45 | disposition home or self-care (01) ==
LOC: EDUNIT# 09:30 → ER 09:33
DX: B34.9 Viral infection, unspecified (principal); E86.0 Dehydration; R07.89 Other chest pain; R19.7 Diarrhea, unspecified; M79.10 Myalgia, unspecified site; R68.83 Chills (without fever); R00.0 Tachycardia, unspecified; R10.10 Upper abdominal pain, unspecified; I45.10 Unspecified right bundle-branch block; R79.82 Elevated C-reactive protein (CRP); F17.200 Nicotine dependence, unspecified, uncomplicated; Z28.310 Unvaccinated for COVID-19; Z20.822 Contact with and (suspected) exposure to COVID-19; Z90.49 Acquired absence of other specified parts of digestive tract
CPT/HCPCS: 36415; 71045; 74177; 80053; 83735; 83874; 84484; 85025; 85379; 85610; 85730; 86141; 87636; 93041

== ENCOUNTER 2023-01-12 18:56 | Emergency (ER) | payer OTHER ==
[~2023-01-12] VITALS: Ht 170.1 cm; Wt 72.5 kg
[2023-01-12] MEDS ORDERED: NITROGLYCERIN 0.4 MG SL TABLETS BTL 25'S SL PRN (19:00)
[2023-01-12] MEDS ORDERED: ASPIRIN 81 MG CHEWABLE TABLET PO ONE (19:00)
--- NOTE | 2023-01-12 19:17 | ED Chest Pain ---
General Chief Complaint: Chest Pain Stated Complaint: CHEST PAIN Nursing Triage Note: PT AMB TO RM 6 WITH CC OF CHEST PAIN X 3 DAYS. PT STATES WAS SEEN IN ED FOR SAME CONCERN 3 DAYS PRIOR. PT STATES PAIN INCREASES WITH BREATHING. PT REPORTS WAS TOLD 1 MONTH AGO THAT SHE HAS A RIGHT BUNDLE BRANCH BLOCK. DENIES OTHER CARDIAC HX. Source: patient, old records History of Present Illness Date Seen by Provider: Jan 12, 2023 Time Seen by Provider: 18:59 Initial Comments PT ARRIVES VIA POV FROM HOME C/O RIGHT UPPER CHEST PAIN FOR THE LAST 3 DAYS PAIN IS CONSTANT AND DOES NOT RADIATE RATES PAIN 9/10 AT THIS TIME STATES IT FEELS LIKE SOMEONE IS SITTING ON HER CHEST. PAIN IS WORSE WITH MOVEMENT OR TAKING A DEEP BREATH NO SHORTNESS OF BREATH NO FEVER/SWEATS/CHILLS NO PALPITATIONS NO DIZZINESS OR SYNCOPE + NAUSEA, NO VOMITING NO SWELLING IN LEGS/FEET OR PAIN IN CALVES SHE HAS HAD SLIGHT COUGH/CONGESTION FOR THE LAST FEW DAYS TOOK IBUPROFEN THIS AM, NO RELIEF. SEThor WAS SEEN HERE 01/10/23 FOR SAME COMPLAINT AND WAS DX WITH VIRAL SYNDROME. NO RX GIVEN SHE WAS ALSO COMPLAINING OF NAUSEA AND DIARRHEA, BODY ACHES AND CHILLS AT THAT TIME WELL COUGH AND CONGESTION. SHE HAS HISTORY OF SERRANO'S ESOPHAGUS, BUT IS NOT TAKING ANY MEDICATION FOR IT SHE TAKES MEDICATIONS FOR PSYCH ISSUES SHE HAS HAD HYST/BSO, CHOLECYSTECTOMY, APPENDECTOMY SHE SMOKES 1/2 PPD, REGULAR ETOH USE--DRINKS AT LEAST 4 DAYS A WEEK--DENIES ANY ALCOHOL TODAY. DENIES DRUG USE Allergies and Home Medications Allergies Coded Allergies: Penicillins (Verified Allergy, Mild, HIVES, 03/07/20) sulfamethoxazole (Verified Allergy, Mild, HIVES, 03/07/20) trimethoprim (Verified Allergy, Mild, HIVES, 03/07/20) Patient Home Medication List Aripiprazole (Aripiprazole) 15 Mg Tablet, 15 MG PO DAILY, (Reported) Entered as Reported by: JANESSA PINEDA on 01/16/22 1344 Aripiprazole (Aripiprazole) 15 Mg Tablet, 15 MG PO DAILY Prescribed by: NAIDA ROBLERO on 07/06/222030 Baclofen (Baclofen) 20 Mg Tablet, 20 MG PO DAILY, (Reported) Entered as Reported by: JANESSA PINEDA on 01/16/22 1344 Dextroamphetamine/Amphetamine (Adderall Xr 25 mg Capsule) 25 Mg Cap.er.24h, 25 MG PO DAILY, (Reported) Entered as Reported by: JANESSA PINEDA on 01/16/22 1344 Etodolac (Etodolac) 400 Mg Tablet, 400 MG PO TID, (Reported) Entered as Reported by: JANESSA PINEDA on 01/16/22 1344 Hydrocodone/Acetaminophen (Hydrocodone-Acetamin 5-325 mg) 5 Mg-325 Mg Tablet, 1 TAB PO Q4H PRN for PAIN-MODERATE (5-7) Prescribed by: NAIDA ROBLERO on 09/04/22 173 Hydroxyzine HCl (Hydroxyzine HCl) 50 Mg Tablet, 50 MG PO Q6H PRN for ANXIETY Prescribed by: NAIDA ROBLERO on 07/06/222030 Hydroxyzine Pamoate (Hydroxyzine Pamoate) 25 Mg Capsule, 25 MG PO PRN, (Reported) Entered as Reported by: JANESSA PINEDA on 01/16/22 1344 Hyoscyamine Sulfate (Hyoscyamine Sulfate) 0.125 Mg Tab.rapdis, 0.125 MG PO PRN, (Reported) Entered as Reported by: JANESSA PINEDA on 01/16/22 1344 Ibuprofen (Ibuprofen) 800 Mg Tablet, 800 MG PO Q8H PRN for PAIN-MILD, (Reported) Entered as Reported by: JANESSA PINEDA on 01/16/22 1344 Ibuprofen (Ibuprofen) 600 Mg Tablet, 600 MG PO Q6H Prescribed by: NAIDA ROBLERO on 09/04/22 1737 Naproxen (Naproxen) 500 Mg Tablet, 500 MG PO Q12H Prescribed by: NAIDA ROBLERO on 09/07/222122 Pantoprazole Sodium (Protonix) 40 Mg Tablet.dr, 40 MG PO DAILY Prescribed by: TIMOTHY ALVARENGA on 01/12/232109 Topiramate (Topamax) 50 Mg Tablet, 50 MG PO PRN, (Reported) Entered as Reported by: ANNELIESE RAMOS on 02/29/20 1129 Review of Systems Review of Systems Constitutional: no symptoms reported EENTM: No Symptoms Reported Respiratory: See HPI Cardiovascular: See HPI Gastrointestinal: See HPI Genitourinary: No Symptoms Reported Musculoskeletal: no symptoms reported Skin: no symptoms reported Psychiatric/Neurological: No Symptoms Reported Endocrine: No Symptoms Reported Past Chcwnbx-Qfzjye-Qlrpge Hx Patient Social History Tobacco Use?: Yes Tobacco type used: Cigarettes Smoking Status: Current Everyday Smoker Substance use?: No Alcohol Use?: Yes Alcohol type: Hard Liquor Alcohol Frequency: Once in a while Pt feels they are or have been: No Immunizations Up To Date Tetanus Booster (TDap): Unknown First/Initial COVID19 Vaccinat: NO Second COVID19 Vaccination Pavel: NO Third COVID19 Vaccination Date: NO Seasonal Allergies Seasonal Allergies: Yes Past Medical History Surgery/Hospitalization HX: barrets espohagus, depression, anxiety, adhd, migraines, rbbb sx: t/a, hysterectomy Surgeries: Yes (WRIST) Appendectomy, Gallbladder, Hysterectomy, Oophorectomy, Tonsillectomy Respiratory: No Pneumonia, Sleep Apnea Cardiac: No Neurological: Yes Headaches /Migraines 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 Disorders: Yes (MULTIPLE LAPAROSCOPIES; HYST/BSO FOR BENIGN DISEASE) Female 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 Disorders: Denies 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 Sexually Transmitted Disease: No HIV/AIDS: No Genitourinary: Yes Kidney Stones Gastrointestinal: Yes Gastroesophageal Reflux, Serrano's Esophagus, Chronic Diarrhea Musculoskeletal: Yes Arthritis, Chronic Back Pain Endocrine: No HEENT: Yes (GLASSES) Loss of Vision: Denies Hearing Impairment: Denies Cancer: No Psychosocial: Yes ADD/ADHD, Anxiety, Depression Integumentary: No Blood Disorders: Yes (HX ANEMIA) Adverse Reaction/Blood Tranf: No (N/A) Physical Exam Vital Signs Vital Signs - First Documented 01/12/23 18:59 Pulse 98 Resp 19 B/P (MAP) 147/87 (107) Pulse Ox 97 O2 Delivery Room Air Capillary Refill : Less Than 3 Seconds Height, Weight, BMI Height: 5'7.00" Weight: 119lbs. 0.0oz. [id number]; 25.00 BMI Method:Stated General Appearance: No Apparent Distress, WD/WN, Other (REEKS OF CIGARETTES) HEENT: PERRL/EOMI; No Scleral Icterus (L), No Scleral Icterus (R) Neck: Normal Inspection Respiratory: Normal Breath Sounds, No Accessory Muscle Use, No Respiratory Distress, Other (RIGHT UPPER CHEST TENDERNESS) Cardiovascular: Regular Rate, Rhythm, No Edema, No Gallop, No JVD, Normal Peripheral Pulses Gastrointestinal: Normal Bowel Sounds, No Organomegaly, No Pulsatile Mass, Non Tender, Soft Extremity: Normal Capillary Refill, Normal Inspection, Normal Range of Motion, Non Tender, No Calf Tenderness, No Pedal Edema Neurologic/Psychiatric: Alert, Oriented x3, No Motor/Sensory Deficits, Normal Mood/Affect, 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 PT IS UNAWARE OF RASH ) Progress/Results/Core Measures Results/Orders Lab Results Laboratory Tests Test 01/12/23 19:03 01/12/23 19:16 01/12/23 19:40 01/12/23 19:46 Range/Units White Blood Count 11.8 H 4.3-11.0 10^3/uL Red Blood Count 4.38 3.80-5.11 10^6/uL Hemoglobin 14.1 11.5-16.0 g/dL Hematocrit 44 35-52 % Mean Corpuscular Volume 99 80-99 fL Mean Corpuscular Hemoglobin 32 25-34 pg Mean Corpuscular Hemoglobin Concent 32 32-36 g/dL Red Cell Distribution Width 15.5 H 10.0-14.5 % Platelet Count 384 130-400 10^3/uL Mean Platelet Volume 9.3 9.0-12.2 fL Immature Granulocyte % (Auto) 1 % Neutrophils (%) (Auto) 73 42-75 % Lymphocytes (%) (Auto) 18 12-44 % Monocytes (%) (Auto) 6 0-12 % Eosinophils (%) (Auto) 3 0-10 % Basophils (%) (Auto) 1 0-10 % Neutrophils # (Auto) 8.6 H 1.8-7.8 10^3/uL Lymphocytes # (Auto) 2.1 1.0-4.0 10^3/uL Monocytes # (Auto) 0.7 0.0-1.0 10^3/uL Eosinophils # (Auto) 0.4 H 0.0-0.3 10^3/uL Basophils # (Auto) 0.1 0.0-0.1 10^3/uL Immature Granulocyte # (Auto) 0.1 0.0-0.1 10^3/uL Prothrombin Time 12.3 12.2-14.7 SEC INR Comment 0.9 0.8-1.4 Activated Partial Thromboplast Time 32 24-35 SEC D-Dimer 1.44 H 0.00-0.49 UG/ML Sodium Level 136 135-145 MMOL/L Potassium Level 3.6 3.6-5.0 MMOL/L Chloride Level 102 98-107 MMOL/L Carbon Dioxide Level 22 21-32 MMOL/L Anion Gap 12 5-14 MMOL/L Blood Urea Nitrogen 7 7-18 MG/DL Creatinine 0.62 0.60-1.30 MG/DL Estimat Glomerular Filtration Rate 115 BUN/Creatinine Ratio 11 Glucose Level 107 H 70-105 MG/DL Calcium Level 8.3 L 8.5-10.1 MG/DL Corrected Calcium 8.8 8.5-10.1 MG/DL Magnesium Level 1.7 1.6-2.4 MG/DL Total Bilirubin 0.2 0.1-1.0 MG/DL Aspartate Amino Transf (AST/SGOT) 35 H 5-34 U/L Alanine Aminotransferase (ALT/SGPT) 30 0-55 U/L Alkaline Phosphatase 126 40-136 U/L Total Creatine Kinase 38 29-168 U/L Creatine Kinase MB 0.6 <6.6 NG/ML Myoglobin 10.7 10.0-92.0 NG/ML Troponin I < 0.028 <0.028 NG/ML B-Type Natriuretic Peptide 61.0 <100.0 PG/ML Total Protein 6.4 6.4-8.2 GM/DL Albumin 3.4 3.2-4.5 GM/DL Amylase Level 27 25-125 U/L Lipase 64 8-78 U/L Serum Test, Qualitative NEGATIVE NEGATIVE Serum Alcohol < 10 <10 MG/DL Influenza Type A (RT-PCR) Not Detected Not Detecte Influenza Type B (RT-PCR) Not Detected Not Detecte SARS-CoV-2 RNA (RT-PCR) Not Detected Not Detecte Group A Streptococcus Screen Not Detected NotDetected Monoscreen NEGATIVE NEGATIVE Test 01/12/23 21:05 Range/Units Urine Color YELLOW Urine Clarity CLEAR Urine pH 6.0 5-9 Urine Specific [place] 1.025 H 1.016-1.022 Urine Protein 1+ H NEGATIVE Urine Glucose (UA) NEGATIVE NEGATIVE Urine Ketones TRACE H NEGATIVE Urine Nitrite NEGATIVE NEGATIVE Urine Bilirubin 1+ H NEGATIVE Urine Urobilinogen 0.2 < = 1.0 MG/DL Urine Leukocyte Esterase NEGATIVE NEGATIVE Urine RBC (Auto) NEGATIVE NEGATIVE Urine RBC NONE /HPF Urine WBC NONE /HPF Urine Squamous Epithelial Cells 25-50 H /HPF Urine Crystals NONE /LPF Urine Bacteria FEW H /HPF Urine Casts NONE /LPF Urine Mucus NEGATIVE /LPF Urine Culture Indicated NO Urine Opiates Screen NEGATIVE NEGATIVE Urine Oxycodone Screen NEGATIVE NEGATIVE Urine Methadone Screen NEGATIVE NEGATIVE Urine Propoxyphene Screen NEGATIVE NEGATIVE Urine Barbiturates Screen NEGATIVE NEGATIVE Ur Tricyclic Antidepressants Screen POSITIVE H NEGATIVE Urine Phencyclidine Screen NEGATIVE NEGATIVE Urine Amphetamines Screen POSITIVE H NEGATIVE Urine Methamphetamines Screen NEGATIVE NEGATIVE Urine Benzodiazepines Screen NEGATIVE NEGATIVE Urine Cocaine Screen NEGATIVE NEGATIVE Urine Cannabinoids Screen POSITIVE H NEGATIVE My Orders Orders - TIMOTHY ALVARENGA DO Cbc With Automated Diff (01/12/23 18:59) Magnesium (01/12/23 18:59) Chest 1 View, Ap/Pa Only (01/12/23 18:59) Ekg Tracing (01/12/23 18:59) Comprehensive Metabolic Panel (01/12/23 18:59) Myoglobin Serum (01/12/23 18:59) Protime With Inr (01/12/23 18:59) Partial Thromboplastin Time (01/12/23 18:59) O2 (01/12/23 18:59) Monitor-Rhythm Ecg Trace Only (01/12/23 18:59) Ed Iv/Invasive Line Start (01/12/23 18:59) Creatine Kinase (01/12/23 18:59) Creatine Kinase Mb (01/12/23 18:59) Lipase (01/12/23 18:59) Amylase (01/12/23 18:59) Bnp Ole (01/12/23 18:59) Fibrin Degradation Products (01/12/23 18:59) Troponin I Ole (01/12/23 18:59) Nitroglycerin 0.4 Mg Btl 25's (Nitroglyc (01/12/23 19:00) Aspirin Chewable Tablet (Aspirin Chewabl (01/12/23 19:00) Covid 19 Inhouse Test (01/12/23 18:59) Influenza A And B By Pcr (01/12/23 18:59) Hcg,Qualitative Serum (01/12/23 18:59) Alcohol (01/12/23 19:08) Drug Screen Stat (Urine) (01/12/23 19:08) Ua Culture If Indicated (01/12/23 19:08) Monotest (01/12/23 19:35) Rapid Strep A Screen (01/12/23 19:35) Tick Panel With Lyme Eia (01/12/23 19:35) Ketorolac Injection (Ketorolac Injection (01/12/23 19:45) Ct Angio Chest W (R/O Pe) (01/12/23 20:25) Iohexol Injection (Omnipaque 350 Mg/Ml 1 (01/12/23 20:45) Received Contrast (Hold Metformin- Contr (01/12/23 20:45) Ns (Ivpb) 100 Ml (Sodium Chloride 0.9% 1 (01/12/23 20:45) Medications Given in ED Current Medications Medications Dose Ordered Sig/Regla Route Start Time Stop Time Status Last Admin Dose Admin Aspirin 324 mg ONCE ONCE PO 01/12/23 19:00 01/12/23 19:01 DC 01/12/23 19:16 324 MG Iohexol 100 ml ONCE ONCE IV 01/12/23 20:45 01/12/23 20:46 DC 01/12/23 20:54 66 ML Ketorolac Tromethamine 30 mg ONCE ONCE IVP 01/12/23 19:45 01/12/23 19:46 DC 01/12/23 19:46 30 MG Nitroglycerin 0.4 mg UD PRN SL 01/12/23 19:00 01/12/23 19:15 0.4 MG Sodium Chloride 100 ml ONCE ONCE IV 01/12/23 20:45 01/12/23 20:46 DC 01/12/23 20:55 100 ML Vital Signs/I&O 01/12/23 18:59 Pulse 98 Resp 19 B/P (MAP) 147/87 (107) Pulse Ox 97 O2 Delivery Room Air Blood Pressure Mean: 107 Progress Progress Note : Progress Note PT WANTS A REMOTE TO TV SOON SHE ENTERS THE ROOM, EVEN BEFORE SHE IS ON THE BED OR ANY INFORMATION IS OBTAINED FROM THE PT VITALS ON ARRIVAL: TEMP , HR 98, RR 19, BP 147/87, O2 SAT 97% ON ROOM AIR GIVEN: -ASPIRIN 324 MG -NTG SL X 1--NO RELIEF -TORADOL--MUCH RELIEF OF PAIN LABS: -CBC WITH WBC 11.8, OTHERWISE NORMAL -CMP UNREMARKABLE -AMYLASE/LIPASE NORMAL -CK, CK-MB, MYOGLOBIN-NORMAL -TROPONIN NEGATIVE -BNP NORMAL -COAGULATION STUDIES NORMAL -D-DIMER 1.44 -ETOH NEGATIVE -UDS -UA UNREMARKABLE -COVID/FLU NEGATIVE -STREP NEGATIVE -MONO NEGATIVE SEND OUT LABS PENDING FOR TICK PANEL EKG WITH CHRONIC RBBB/UNCHANGED FROM PREVIOUS CXR UNREMARKABLE CT CHEST ANGIOGRAM WITH NO ACUTE FINDINGS REVIEWED PRIOR RECORDS, INCLUDING ER VISITS, ADMITS/H&P'S/CONSULTS/DISCHARGE SUMMARIES, TESTS/PROCEDURES DISCUSSED TEST RESULTS, ANTICIPATED COURSE, SYMPTOMATIC TREATMENT, MEDICATIONS, NEED FOR FOLLOW UP AND RETURN PRECAUTIONS SOON SHE IS BEING DISMISSED, PT WANTS A WORK NOTE. Initial ECG Impression Date: Jan 12, 2023 Initial ECG Impression Time: 19:09 Initial ECG Rate: 90 Initial ECG Rhythm: Normal Sinus (INCOMPLETE RBBB) Initial ECG Intervals KS 118 QRS 108 QT/QTC 385/433 Initial ECG Comparisson: Unchanged Comment INTERPRETED BY ME Diagnostic Imaging Comments CXR--PER RADIOLOGIST REPORT AT 1921 FINDINGS: There is minimal basilar atelectasis. Lungs are otherwise clear. There is no pneumonia or edema. There is no effusion. There is no pneumothorax. Heart size is normal. Mediastinal contours are appropriate. IMPRESSION: Minimal basilar discoid atelectasis. No finding of pneumonia or edema. CT CHEST ANGIOGRAM--PER RADIOLOGIST REPORT AT 2108 FINDINGS: There is no pulmonary artery filling defect or evidence of embolism. There is no right ventricular strain. Thoracic aorta unremarkable without calcifications, aneurysm or dissection. Lungs demonstrate some patchy basilar atelectasis. The lungs otherwise appear clear without dense airspace consolidation to suggest pneumonia. There is no effusion or pneumothorax. There is no finding of edema. There is no suspicious lung nodule or mass. There is no finding of abnormally enlarged mediastinal, hilar or axillary lymph nodes. The upper abdomen demonstrates hepatomegaly and hepatic steatosis. There is no finding of an acute osseous abnormality. IMPRESSION: 1. No CT angiographic evidence of pulmonary embolism or right ventricular strain. 2. No acute aortic syndrome. 3. Other than dependent atelectasis, the lungs appear clear. 4. No adenopathy. 5. No acute osseous abnormality. 6. Hepatic steatosis and hepatomegaly. Reviewed: Reviewed by Me Departure Impression Primary Impression: Right-sided chest pain Additional Impressions: Chronic bundle branch block Viral syndrome Rash and nonspecific skin eruption Disposition: HOME, SELF-CARE Condition: Improved Departure-Patient Inst. Decision time for Depature: 21:09 Referrals: TOMY TALAVERA APRN (PCP/Family) Primary Care Physician Patient Instructions: Chest Pain (DC), VIRAL SYNDROME, Skin Rash (DC) Add. Discharge Instructions: HOME, REST YOU MAY TAKE TYLENOL AND MOTRIN NEEDED FOR PAIN LOTS OF CLEAR LIQUIDS--NO COFFEE, POP OR TEA FOLLOW UP WITH [facility] THIS WEEK FOR FURTHER CARE, RETURN TO ER IF SYMPTOMS WORSEN All discharge instructions reviewed with patient and/or family. Voiced understanding. Scripts Pantoprazole Sodium (Protonix) 40 Mg Tablet. 40 MG PO DAILY, #15 TAB Prov: TIMOTHY ALVARENGA DO 01/12/23 Work/School Note: Work Release Form Date Seen in the Emergency Department: Jan 12, 2023 TIMOTHY ALVARENGA DO Jan 12, 2023 19:17
--- NOTE | 2023-01-12 19:20 | Diagnostic Imaging Report ---
INDICATION: Chest pain. COMPARISON: 01/10/2023. FINDINGS: There is minimal basilar atelectasis. Lungs are otherwise clear. There is no pneumonia or edema. There is no effusion. There is no pneumothorax. Heart size is normal. Mediastinal contours are appropriate. IMPRESSION: Minimal basilar discoid atelectasis. No finding of pneumonia or edema. Dictated by: Dictated on workstation # [id number]
[2023-01-12] MEDS ORDERED: KETOROLAC INJ 30 MG/ML VIAL IVP ONE (19:45)
[2023-01-12 19:51] LABS: BASOPHILS # (AUTO) 0.1 10^3/uL (0.0-0.1); BASOPHILS % (AUTO) 1 % (0-10); EOSINOPHILS # (AUTO) 0.4 10^3/uL (0.0-0.3); EOSINOPHILS % (AUTO) 3 % (0-10); HEMATOCRIT 44 % (35-52); HEMOGLOBIN 14.1 g/dL (11.5-16.0); LYMPHOCYTES # (AUTO) 2.1 10^3/uL (1.0-4.0); LYMPHOCYTES % (AUTO) 18 % (12-44); MEAN CORPUSCULAR HEMOGLOBIN 32 pg (25-34); MEAN CORPUSCULAR HGB CONC 32 g/dL (32-36); MEAN CORPUSCULAR VOLUME 99 fL (80-99); MEAN PLATELET VOLUME 9.3 fL (9.0-12.2); MONOCYTES # (AUTO) 0.7 10^3/uL (0.0-1.0); MONOCYTES % (AUTO) 6 % (0-12); NEUTROPHILS # (AUTO) 8.6 10^3/uL (1.8-7.8); NEUTROPHILS % (AUTO) 73 % (42-75); PLATELET COUNT 384 10^3/uL (130-400); WHITE BLOOD COUNT 11.8 10^3/uL (4.3-11.0)
[2023-01-12 20:08] LABS: INR 0.9 (0.8-1.4); PROTHROMBIN TIME PATIENT 12.3 SEC (12.2-14.7)
[2023-01-12 20:11] LABS: FIBRIN DEGRADATION PRODUCTS 1.44 UG/ML (0.00-0.49)
[2023-01-12 20:12] LABS: ALANINE AMINOTRANSFERASE 30 U/L (0-55); ALBUMIN 3.4 GM/DL (3.2-4.5); ALKALINE PHOSPHATASE 126 U/L (40-136); AMYLASE 27 U/L (25-125); BILIRUBIN,TOTAL 0.2 MG/DL (0.1-1.0); BUN/CREATININE RATIO 11; CALCIUM 8.3 MG/DL (8.5-10.1); CARBON DIOXIDE 22 MMOL/L (21-32); CHLORIDE 102 MMOL/L (98-107); CREATINE KINASE 38 U/L (29-168); CREATININE SERUM 0.62 MG/DL (0.60-1.30); GFR ESTIMATED 115; GLUCOSE 107 MG/DL (70-105); LIPASE 64 U/L (8-78); MAGNESIUM 1.7 MG/DL (1.6-2.4); POTASSIUM 3.6 MMOL/L (3.6-5.0); SODIUM 136 MMOL/L (135-145); TOTAL PROTEIN 6.4 GM/DL (6.4-8.2)
[2023-01-12 20:23] LABS: CREATINE KINASE MB 0.6 NG/ML (<6.6)
[2023-01-12] MEDS ORDERED: HOLD METFORMIN - RECEIVED CONTRAST 20 ML VIAL IV SCH (20:45)
[2023-01-12] MEDS ORDERED: IOHEXOL 350 MG/ML 100 ML (OMNIPAQUE 350) VIAL IV ONE (20:45)
[2023-01-12] MEDS ORDERED: NS 100 ML (IVPB) BAG IV ONE (20:45)
--- NOTE | 2023-01-12 21:07 | Diagnostic Imaging Report ---
EXAMINATION: CT angiogram of the chest with contrast. INDICATION: Chest pain and shortness of breath. Evaluate for pulmonary embolism. COMPARISON: Chest radiograph from earlier the same day. TECHNIQUE: After intravenous administration of contrast, thin section axial CT angiography of the chest was performed and multiple reconstructions were provided including MIP reformats. All CT scans use one or more of the following dose optimizing techniques: automated exposure control, MA and/or KvP adjustment based on patient size and exam type or iterative reconstruction. FINDINGS: There is no pulmonary artery filling defect or evidence of embolism. There is no right ventricular strain. Thoracic aorta unremarkable without calcifications, aneurysm or dissection. Lungs demonstrate some patchy basilar atelectasis. The lungs otherwise appear clear without dense airspace consolidation to suggest pneumonia. There is no effusion or pneumothorax. There is no finding of edema. There is no suspicious lung nodule or mass. There is no finding of abnormally enlarged mediastinal, hilar or axillary lymph nodes. The upper abdomen demonstrates hepatomegaly and hepatic steatosis. There is no finding of an acute osseous abnormality. IMPRESSION: 1. No CT angiographic evidence of pulmonary embolism or right ventricular strain. 2. No acute aortic syndrome. 3. Other than dependent atelectasis, the lungs appear clear. 4. No adenopathy. 5. No acute osseous abnormality. 6. Hepatic steatosis and hepatomegaly. Dictated by: Dictated on workstation # [id number]
[2023-01-12] MEDS ORDERED: PANT40TA2 PO (21:10)
[2023-01-12 21:31] LABS: CLARITY,URINE CLEAR; COLOR,URINE YELLOW; GLUCOSE, URINE (UA) NEGATIVE (NEGATIVE); KETONES,URINE TRACE (NEGATIVE); NITRITE,URINE NEGATIVE (NEGATIVE); PROTEIN,URINE 1+ (NEGATIVE)
[2023-01-12 21:32] LABS: BACTERIA,URINE FEW /HPF; BILIRUBIN,URINE 1+ (NEGATIVE); LEUKOCYTE ESTERASE ,URINE NEGATIVE (NEGATIVE); SQUAMOUS EPITHELIAL CELL,UR 25-50 /HPF
[2023-01-12 21:34] LABS: AMPHETAMINE SCREEN, URINE POSITIVE (NEGATIVE); BARBITURATE SCREEN URINE NEGATIVE (NEGATIVE); BENZODIAZEPINES SCREEN URINE NEGATIVE (NEGATIVE); CANNABINOID SCREEN, URINE POSITIVE (NEGATIVE); COCAINE SCREEN URINE NEGATIVE (NEGATIVE); METHADONE STAT NEGATIVE (NEGATIVE); OPIATE SCREEN URINE NEGATIVE (NEGATIVE); OXYCODONE STAT NEGATIVE (NEGATIVE); PROPOXYPHENE STAT NEGATIVE (NEGATIVE); TRICYCLIC ANTIDEPRESSANTS SCRE POSITIVE (NEGATIVE)
[2023-01-12 21:53] VITALS: BP 119/67
== END 2023-01-12 21:53 | disposition home or self-care (01) ==
LOC: EDUNIT# 18:56 → ER 18:58
DX: I45.10 Unspecified right bundle-branch block (principal); B34.9 Viral infection, unspecified; R21 Rash and other nonspecific skin eruption; R05.9 Cough, unspecified; R09.81 Nasal congestion; F17.210 Nicotine dependence, cigarettes, uncomplicated; Z28.310 Unvaccinated for COVID-19; Z79.899 Other long term (current) drug therapy; Z20.822 Contact with and (suspected) exposure to COVID-19
CPT/HCPCS: 71045; 71275; 80053; 80306; 81000; 82150; 82550; 82553; 83690; 83735; 83874; 83880; 84484; 84703; 85025; 85379; 85610; 85730; 86308; 86618; 86666 ×2; 86668; 86757 ×2; 87430; 87636; 93041; 99284; G0480; 36415; 80320

== ENCOUNTER 2023-02-26 11:30 | Observation (INO) | payer OTHER ==
[~2023-02-26] VITALS: Ht 170.1 cm; Wt 72.5 kg
[2023-02-26 13:12] LABS: BASOPHILS % (AUTO) 0 % (0-10); EOSINOPHILS # (AUTO) 0.1 10^3/uL (0.0-0.3); EOSINOPHILS % (AUTO) 1 % (0-10); HEMATOCRIT 38 % (35-52); LYMPHOCYTES # (AUTO) 0.8 10^3/uL (1.0-4.0); LYMPHOCYTES % (AUTO) 6 % (12-44); MEAN CORPUSCULAR HEMOGLOBIN 31 pg (25-34); MEAN CORPUSCULAR HGB CONC 34 g/dL (32-36); MEAN CORPUSCULAR VOLUME 90 fL (80-99); MEAN PLATELET VOLUME 10.4 fL (9.0-12.2); MONOCYTES # (AUTO) 0.8 10^3/uL (0.0-1.0); MONOCYTES % (AUTO) 7 % (0-12); NEUTROPHILS % (AUTO) 86 % (42-75); PLATELET COUNT 325 10^3/uL (130-400); WHITE BLOOD COUNT 12.8 10^3/uL (4.3-11.0)
[2023-02-26 13:16] LABS: ALBUMIN 3.7 GM/DL (3.2-4.5)
[2023-02-26 13:17] LABS: CALCIUM 6.9 MG/DL (8.5-10.1)
[2023-02-26 13:18] LABS: TOTAL PROTEIN 7.9 GM/DL (6.4-8.2)
[2023-02-26 13:20] LABS: BILIRUBIN,TOTAL 0.8 MG/DL (0.1-1.0)
[2023-02-26 13:22] LABS: CREATININE SERUM 0.82 MG/DL (0.60-1.30)
[2023-02-26 13:37] LABS: MAGNESIUM 0.8 MG/DL (1.6-2.4); POTASSIUM 2.2 MMOL/L (3.6-5.0)
[2023-02-26] MEDS ORDERED: ONDANSETRON INJECTION 4 MG/2 ML (SDV) IVP ONE ×2 (13:45→14:00)
[2023-02-26] MEDS ORDERED: NS IV 1000 ML 1,000 ML IV SCH (13:45)
[2023-02-26] MEDS ORDERED: POTASSIUM CL 10MEQ/50ML IVPB 50 ML IV ONE (13:45)
[2023-02-26 14:00] LABS: BAND NEUTROPHILS 0 %; BASOPHILS % (MANUAL) 0 %; EOSINOPHILS % (MANUAL) 1 %; LYMPHOCYTES % (MANUAL) 6 %; MONOCYTES % (MANUAL) 5 %; NEUTROPHILS % (MANUAL) 88 %; RBC MORPH NORMAL
[2023-02-26] MEDS ORDERED: NICOTINE 21 MG PATCH TD ONE (14:00)
[2023-02-26] MEDS ORDERED: fentaNYL INJECTION 100 MCG/2 ML VIAL IVP ONE (14:00)
--- NOTE | 2023-02-26 14:03 | ED General ---
General Chief Complaint: Cough/Cold/Flu Symptoms Stated Complaint: NUMBNESS IN HANDS, LEGS, FACE | DIARRHEA Nursing Triage Note: MULTIPLE SX COUGH, DIARRHEA, FATIGUE, TINGLING AND CRAMPING OF ARMS, LEGS AND FINGERS, FEVER AND CHILLS SINCE FRIDAY Source of Information: Patient Exam Limitations: No Limitations History of Present Illness Date Seen by Provider: Feb 26, 2023 Time Seen by Provider: 13:45 Initial Comments This 42 year old woman presents to the ER with three days of intense diarrhea. She denies vomiting. She had a fever yesterday. Additional symptoms include diffuse paresthesias of the extremities, muscle cramps, mild cough, and myalgias. She has not been able to keep in any solid food for 3 days. Allergies and Home Medications Allergies Coded Allergies: Penicillins (Verified Allergy, Mild, HIVES, 02/26/23) sulfamethoxazole (Verified Allergy, Mild, HIVES, 02/26/23) trimethoprim (Verified Allergy, Mild, HIVES, 02/26/23) Patient Home Medication List Home Medication List Reviewed: Yes Benzonatate (Benzonatate) 100 Mg Capsule, 100 MG PO TID PRN for COUGH, (Reported) Entered as Reported by: ELIDIA RIVAS on 02/27/23915 Last Action: Reviewed Buspirone HCl (Buspirone HCl) 30 Mg Tablet, 30 MG PO BID PRN for ANXIETY, (Reported) Entered as Reported by: ELIDIA RIVAS on 02/27/23915 Last Action: Reviewed Dextroamphetamine/Amphetamine (Dextroamp-Amphet ER 10 mg Cap) 10 Mg Cap.er.24h, 10 MG PO DAILY, (Reported) Entered as Reported by: ELIDIA RIVAS on 02/27/23915 Last Action: Reviewed Famotidine (Pepcid AC) 10 Mg Tablet, 10 MG PO DAILY PRN for HEARTBURN, (R eported) Entered as Reported by: ELIDIA RIVAS on 02/27/23915 Last Action: Reviewed Ibuprofen (Ibuprofen) 200 Mg Tablet, 600 MG PO Q6H PRN for PAIN-MILD (1-4), (Reported) Entered as Reported by: ELIDIA RIVAS on 02/27/23915 Last Action: Reviewed Mirtazapine (Mirtazapine) 30 Mg Tablet, 30 MG PO HS, (Reported) Entered as Reported by: ELIDIA RIVAS on 02/27/23915 Last Action: Reviewed Multivit with Calcium,Iron,Min (Women's Daily Formula) 27 Mg-0.4 Mg Tablet, 1 EACH PO DAILY, (Reported) Entered as Reported by: ELIDIA RIVAS on 02/27/23915 Last Action: Reviewed Prazosin HCl (Prazosin HCl) 1 Mg Capsule, 1 MG PO HS, (Reported) Entered as Reported by: ELIDIA RIVAS on 02/27/23915 Last Action: Reviewed Discontinued Medications Aripiprazole (Aripiprazole) 15 Mg Tablet, 15 MG PO DAILY, (Reported) Discontinued Reason: No Longer Taking Entered as Reported by: JANESSA PINEDA on 01/16/221343 Last Action: Discontinued Aripiprazole (Aripiprazole) 15 Mg Tablet, 15 MG PO DAILY Discontinued Reason: No Longer Taking Prescribed by: NAIDA ROBLERO on 07/06/222030 Last Action: Discontinued Baclofen (Baclofen) 20 Mg Tablet, 20 MG PO DAILY, (Reported) Discontinued Reason: No Longer Taking Entered as Reported by: JANESSA PINEDA on 01/16/221343 Last Action: Discontinued Dextroamphetamine/Amphetamine (Adderall Xr 25 mg Capsule) 25 Mg Cap.er.24h, 25 MG PO DAILY, (Reported) Discontinued Reason: No Longer Taking Entered as Reported by: JANESSA PINEDA on 01/16/221343 Last Action: Discontinued Etodolac (Etodolac) 400 Mg Tablet, 400 MG PO TID, (Reported) Discontinued Reason: No Longer Taking Entered as Reported by: JANESSA PINEDA on 01/16/221343 Last Action: Discontinued Hydrocodone/Acetaminophen (Hydrocodone-Acetamin 5-325 mg) 5 Mg-325 Mg Tablet, 1 TAB PO Q4H PRN for PAIN-MODERATE (5-7) Discontinued Reason: No Longer Taking Prescribed by: NAIDA ROBLERO on 09/04/221736 Last Action: Discontinued Hydroxyzine HCl (Hydroxyzine HCl) 50 Mg Tablet, 50 MG PO Q6H PRN for ANXIETY Discontinued Reason: No Longer Taking Prescribed by: NAIDA ROBLERO on 07/06/222030 Last Action: Discontinued Hydroxyzine Pamoate (Hydroxyzine Pamoate) 25 Mg Capsule, 25 MG PO PRN, (Reported) Discontinued Reason: No Longer Taking Entered as Reported by: JANESSA PINEDA on 01/16/22 1344 Last Action: Discontinued Hyoscyamine Sulfate (Hyoscyamine Sulfate) 0.125 Mg Tab.rapdis, 0.125 MG PO PRN, (Reported) Discontinued Reason: No Longer Taking Entered as Reported by: JANESSA PINEDA on 01/16/22 1344 Last Action: Discontinued Ibuprofen (Ibuprofen) 800 Mg Tablet, 800 MG PO Q8H PRN for PAIN-MILD, (Reported) Discontinued Reason: No Longer Taking Entered as Reported by: JANESSA PINEDA on 01/16/22 1344 Last Action: Discontinued Ibuprofen (Ibuprofen) 600 Mg Tablet, 600 MG PO Q6H Discontinued Reason: No Longer Taking Prescribed by: NAIDA ROBLERO on 09/04/22 1737 Last Action: Discontinued Naproxen (Naproxen) 500 Mg Tablet, 500 MG PO Q12H Discontinued Reason: No Longer Taking Prescribed by: NAIDA ROBLERO on 09/07/222122 Last Action: Discontinued Pantoprazole Sodium (Protonix) 40 Mg Tablet.dr, 40 MG PO DAILY Discontinued Reason: No Longer Taking Prescribed by: TIMOTHY ALVARENGA on 01/12/232109 Last Action: Discontinued Topiramate (Topamax) 50 Mg Tablet, 50 MG PO PRN, (Reported) Discontinued Reason: No Longer Taking Entered as Reported by: ANNELIESE RAMOS on 02/29/20 1129 Last Action: Discontinued Review of Systems Review of Systems Constitutional: see HPI EENTM: no symptoms reported Respiratory: see HPI Cardiovascular: no symptoms reported Gastrointestinal: see HPI Genitourinary: no symptoms reported : No Musculoskeletal: see HPI Skin: no symptoms reported Psychiatric/Neurological: See HPI Hematologic/Lymphatic: No Symptoms Reported Immunological/Allergic: no symptoms reported Past Pjosjml-Iwufuv-Hgutyu Hx Patient Social History Tobacco Use?: Yes Tobacco type used: Cigarettes Smoking Status: Current Everyday Smoker Use of E-Cig and/or Vaping dev: No Substance use?: No Alcohol Use?: Yes Alcohol type: Hard Liquor Alcohol Frequency: Once in a while Pt feels they are or have been: No Immunizations Up To Date Tetanus Booster (TDap): Unknown Influenza Vaccine Up-to-Date: No; Not Current First/Initial COVID19 Vaccinat: NO Second COVID19 Vaccination Pavel: NO Third COVID19 Vaccination Date: NO Seasonal Allergies Seasonal Allergies: Yes Past Medical History Surgery/Hospitalization HX: barrets espohagus, depression, anxiety, adhd, migraines, rbbb sx: t/a, hysterectomy Surgeries: Yes (WRIST) Appendectomy, Gallbladder, Hysterectomy, Oophorectomy, Tonsillectomy Respiratory: No Pneumonia, Sleep Apnea Cardiac: No Neurological: Yes Headaches /Migraines 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 Disorders: Yes (MULTIPLE LAPAROSCOPIES; HYST/BSO FOR BENIGN DISEASE) Female 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 Disorders: 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 Sexually Transmitted Disease: No HIV/AIDS: No Genitourinary: Yes Kidney Stones Gastrointestinal: Yes Gastroesophageal Reflux, Ny's Esophagus, Chronic Diarrhea Musculoskeletal: Yes Arthritis, Chronic Back Pain Endocrine: No HEENT: Yes (GLASSES) Loss of Vision: Denies Hearing Impairment: Denies Cancer: No Psychosocial: Yes ADD/ADHD, Anxiety, Depression Integumentary: No Blood Disorders: Yes (HX ANEMIA) Adverse Reaction/Blood Tranf: No (N/A) Family Medical History SOCIAL HISTORY: -SMOKES 1/2 PPD -ETOH--DRINKS AT LEAST 4 TIMES A WEEK -DRUGS--DENIES USE BUT UDS + FOR THC Physical Exam Vital Signs Vital Signs - First Documented 02/26/23 11:42 Temp 36.8 Pulse 112 Resp 16 Pulse Ox 98 O2 Delivery Room Air Capillary Refill : Less Than 3 Seconds Height, Weight, BMI Height: 5'7.00" Weight: 119lbs. 0.0oz. [id number]; 25.00 BMI Method:Stated General Appearance: No Apparent Distress, WD/WN HEENT: PERRL/EOMI, Normal ENT Inspection, Other (MM somewhat dry) Neck: Normal Inspection Respiratory: Lungs Clear, Normal Breath Sounds, No Accessory Muscle Use Cardiovascular: Regular Rate, Rhythm, No Edema, No Murmur Gastrointestinal: Non Tender, Soft; No Distended Extremity: Normal Inspection, No Pedal Edema Neurologic/Psychiatric: Alert, Oriented x3, No Motor/Sensory Deficits, Normal Mood/Affect Skin: Normal Color, Warm/Dry Progress/Results/Core Measures Suspected Sepsis SIRS Temperature: Pulse: 112 Respiratory Rate: 16 Laboratory Tests 02/26/23 12:55: White Blood Count 12.8H Blood Pressure / Mean: Laboratory Tests 02/26/23 12:55: Creatinine 0.82, Platelet Count 325, Total Bilirubin 0.8 Results/Orders Lab Results Laboratory Tests Test 02/26/23 12:55 Range/Units White Blood Count 12.8 H 4.3-11.0 10^3/uL Red Blood Count 4.23 3.80-5.11 10^6/uL Hemoglobin 13.0 11.5-16.0 g/dL Hematocrit 38 35-52 % Mean Corpuscular Volume 90 80-99 fL Mean Corpuscular Hemoglobin 31 25-34 pg Mean Corpuscular Hemoglobin Concent 34 32-36 g/dL Red Cell Distribution Width 16.0 H 10.0-14.5 % Platelet Count 325 130-400 10^3/uL Mean Platelet Volume 10.4 9.0-12.2 fL Immature Granulocyte % (Auto) 1 % Neutrophils (%) (Auto) 86 H 42-75 % Lymphocytes (%) (Auto) 6 L 12-44 % Monocytes (%) (Auto) 7 0-12 % Eosinophils (%) (Auto) 1 0-10 % Basophils (%) (Auto) 0 0-10 % Neutrophils # (Auto) 11.0 H 1.8-7.8 10^3/uL Lymphocytes # (Auto) 0.8 L 1.0-4.0 10^3/uL Monocytes # (Auto) 0.8 0.0-1.0 10^3/uL Eosinophils # (Auto) 0.1 0.0-0.3 10^3/uL Basophils # (Auto) 0.0 0.0-0.1 10^3/uL Immature Granulocyte # (Auto) 0.1 0.0-0.1 10^3/uL Neutrophils % (Manual) 88 % Lymphocytes % (Manual) 6 % Monocytes % (Manual) 5 % Eosinophils % (Manual) 1 % Basophils % (Manual) 0 % Band Neutrophils 0 % Blood Morphology Comment NORMAL Sodium Level 130 L 135-145 MMOL/L Potassium Level 2.2 *L 3.6-5.0 MMOL/L Chloride Level 86 L 98-107 MMOL/L Carbon Dioxide Level 27 21-32 MMOL/L Anion Gap 17 H 5-14 MMOL/L Blood Urea Nitrogen 11 7-18 MG/DL Creatinine 0.82 0.60-1.30 MG/DL Estimat Glomerular Filtration Rate 92 BUN/Creatinine Ratio 13 Glucose Level 124 H 70-105 MG/DL Calcium Level 6.9 L 8.5-10.1 MG/DL Corrected Calcium 7.1 L 8.5-10.1 MG/DL Magnesium Level 0.8 *L 1.6-2.4 MG/DL Total Bilirubin 0.8 0.1-1.0 MG/DL Aspartate Amino Transf (AST/SGOT) 21 5-34 U/L Alanine Aminotransferase (ALT/SGPT) 16 0-55 U/L Alkaline Phosphatase 128 40-136 U/L C-Reactive Protein High Sensitivity 25.12 H 0.00-0.50 MG/DL Total Protein 7.9 6.4-8.2 GM/DL Albumin 3.7 3.2-4.5 GM/DL Influenza Type A (RT-PCR) Not Detected Not Detecte Influenza Type B (RT-PCR) Not Detected Not Detecte SARS-CoV-2 RNA (RT-PCR) Not Detected Not Detecte My Orders Orders - KIMBERLY QUIROZ MD Cbc And Automated Diff (02/26/23 12:47) Comprehensive Metabolic Panel (02/26/23 12:47) Hs C Reactive Protein (02/26/23 12:47) Magnesium (02/26/23 12:47) Ed Iv/Invasive Line Start (02/26/23 12:47) Covid 19 Inhouse Test (02/26/23 12:47) Influenza A And B By Pcr (02/26/23 12:47) Manual Differential (02/26/23 12:55) Ns Iv 1000 Ml (Ns Iv 1000 Ml) (02/26/23 13:45) Potassium Cl 10meq/50ml Ivpb (Kcl 10 Meq (02/26/23 13:45) Ondansetron Injection (Ondansetron Inj (02/26/23 13:45) Ondansetron Injection (Ondansetron Inj (02/26/23 14:00) Fentanyl Injection (Fentanyl Injection (02/26/23 14:00) Nicotine Patch (Nicotine Patch) (02/26/23 14:00) Vital Signs/I&O 02/26/23 11:42 Temp 36.8 Pulse 112 Resp 16 B/P (MAP) Pulse Ox 98 O2 Delivery Room Air 02/27/23 00:00 Intake Total 1050 ml Balance 1050 ml Capillary Refill : Less Than 3 Seconds Progress Note : Progress Note Patient was interviewed and examined. Labs were obtained and interpreted by me. CBC was remarkable for elevated WBC of 12.8. Significant abnormalities in the CMP include hyponatremia of 130, hypokalemia of 2.2, hyperglycemia of 124, hyp ocalcemia of 6.9, and hypomagnesemia of 0.8. CRP was elevated at 25. Swabs for COVID 19 and flu were negative. Patient was hydrated with NS and IV potassium replacement was initiated in the ER. Because of the severe electrolyte deficiencies, patient needs admission. Fentanyl was given for myalgias. Zofran was given for nausea. Case was discussed with Dr. Evans who accepted admission. I entered admission bridging orders on her behalf. Departure Communication (Admissions) Time/Spoke to Admitting Phy: 14:00 Dr. Evans Impression Primary Impression: Hypokalemia Additional Impressions: Hypomagnesemia Diarrhea Qualified Codes: R19.7 - Diarrhea, unspecified Disposition: ADMITTED INPATIENT Condition: Stable Admissions Decision to Admit Reason: Admit from ER (General) Decision to Admit/Date: Feb 26, 2023 Time/Decision to Admit Time: 14:00 Departure-Patient Inst. Referrals: TOMY TALAVERA APRN (PCP/Family) Primary Care Physician Copy Copies To 1: [facility]/KIMBERLY QUAN MD Feb 26, 2023 14:03
[2023-02-26 15:00] VITALS: BP 114/61
[2023-02-26] MEDS ORDERED: ONDANSETRON INJECTION 4 MG/2 ML (SDV) IV PRN (15:15)
[2023-02-26] MEDS: POTASSIUM CL 10 MEQ/50 ML IVPB (PRE-MIX) IV SCH ×7 (15:24→22:42)
[2023-02-26] MEDS: MAGNESIUM 1 GM/100 ML IVPB IV SCH ×4 (15:24→18:35)
[2023-02-26] MEDS: NS IV 1000 ML 1,000 ML IV SCH ×2 (15:25→20:02)
[2023-02-26] MEDS: PANTOPRAZOLE INJECTION 40 MG VIAL IV SCH (15:25)
[2023-02-26] MEDS ORDERED: diphenhydrAMINE INJ 50 MG/ML VIAL IM NR (16:00)
[2023-02-26] MEDS: fentaNYL INJECTION 100 MCG/2 ML VIAL IV PRN ×2 (18:35→23:25)
[2023-02-26 19:28] VITALS: BP 94/52
[2023-02-26 20:10] VITALS: BP 105/67
[2023-02-27] VITALS: BP 92/56
[2023-02-27] MEDS: POTASSIUM CL 10 MEQ/50 ML IVPB (PRE-MIX) IV SCH (01:00)
[2023-02-27] MEDS: NS IV 1000 ML 1,000 ML IV SCH (03:00)
[2023-02-27 03:25] VITALS: BP 95/59
[2023-02-27] MEDS: fentaNYL INJECTION 100 MCG/2 ML VIAL IV PRN ×2 (03:46→07:52)
--- NOTE | 2023-02-27 06:22 | History & Physical ---
DUSTIN GILL MD, RESIDENT 02/27/23 0622: HPI History of Present Illness: CC: Diarrhea Patient states she was in her usual state of health until Friday morning when she began having numbness in her face, hands and feet as well as muscle cramping. She notes she was having watery diarrhea but had too many episodes to count. She notes feeling feverish and having chills but did not measure her temperatures at home. Patient also notes having dry cough and sore throat. She denies any sick contacts and no prior episodes similar to this. Patient notes she was on antibiotics a couple weeks ago for a "stomach infection". On presentation to the ED, patient was noted to be hypokalemic and have low magnesium and thus was admitted for further management and observation. Source: patient Exam Limitations: no limitations Date seen by provider: Feb 27, 2023 Time Seen by Provider: 08:02 Attending Physician Mirella Elena Aprn PCP Admitting Physician: Debbie Jaimes MD Attending Physician: Debbie Jaimes MD Consult Date of Admission Feb 26, 2023 at 14:52 Home Medications Home Medications Reviewed patient Home Medication Reconciliation performed by pharmacy medication reconciliations hitch technician and/or nursing. Patients Allergies have been reviewed. Allergies Coded Allergies: Penicillins (Verified Allergy, Mild, HIVES, 02/26/23) sulfamethoxazole (Verified Allergy, Mild, HIVES, 02/26/23) trimethoprim (Verified Allergy, Mild, HIVES, 02/26/23) YBR-Vgdhrx-Eigfws Hx Patient Social History Smoking Status: Current Everyday Smoker 2nd Hand Smoke Exposure: Yes Recent Hopitalizations: No Alcohol Use?: Yes Tobacco type used: Cigarettes Immunizations Up To Date Tetanus Booster (TDap): Unknown Influenza Vaccine Up-to-Date: No; Not Current First/Initial COVID19 Vaccinat: NO Second COVID19 Vaccination Pavel: NO Third COVID19 Vaccination Date: NO Past Medical History barretts esophagus, adhd, migraines, anxiety, depression Family Medical History Other Significan Family Hx: SOCIAL HISTORY: -SMOKES 1/2 PPD -ETOH--DRINKS AT LEAST 4 TIMES A WEEK -DRUGS--DENIES USE BUT UDS + FOR THC Review of Systems (CHC) Constitutional: chills; No fever; weakness EENTM: throat pain Respiratory: cough Cardiovascular: No chest pain, No edema, No palpitations Gastrointestinal: No abdominal pain, No constipation, No diarrhea, No nausea, No vomiting Genitourinary: No dysuria Musculoskeletal: No no symptoms reported Skin: No no symptoms reported Psychiatric/Neurological: Denies No Symptoms Reported Reviewed Test Results Reviewed Test Results Lab Laboratory Tests 02/26/23 12:55: White Blood Count 12.8H, Red Blood Count 4.23, Hemoglobin 13.0, Hematocrit 38, Mean Corpuscular Volume 90, Mean Corpuscular Hemoglobin 31, Mean Corpuscular Hemoglobin Concent 34, Red Cell Distribution Width 16.0H, Platelet Count 325, Mean Platelet Volume 10.4, Immature Granulocyte % (Auto) 1, Neutrophils (%) (Auto) 86H, Lymphocytes (%) (Auto) 6L, Monocytes (%) (Auto) 7, Eosinophils (%) (Auto) 1, Basophils (%) (Auto) 0, Neutrophils # (Auto) 11.0H, Lymphocytes # (Auto) 0.8L, Monocytes # (Auto) 0.8, Eosinophils # (Auto) 0.1, Basophils # (Auto) 0.0, Immature Granulocyte # (Auto) 0.1, Neutrophils % (Manual) 88, Lymphocytes % (Manual) 6, Monocytes % (Manual) 5, Eosinophils % (Manual) 1, Basophils % (Manual) 0, Band Neutrophils 0, Blood Morphology Comment NORMAL, Sodium Level 130L, Potassium Level 2.2*L, Chloride Level 86L, Carbon Dioxide Level 27, Anion Gap 17H, Blood Urea Nitrogen 11, Creatinine 0.82, Estimat Glomerular Filtration Rate 92, BUN/Creatinine Ratio 13, Glucose Level 124H, Calcium Level 6.9L, Corrected Calcium 7.1L, Magnesium Level 0.8*L, Total Bilirubin 0.8, Aspartate Amino Transf (AST/SGOT) 21, Alanine Aminotransferase (ALT/SGPT) 16, Alkaline Phosphatase 128, C-Reactive Protein High Sensitivity 25.12H, Total Protein 7.9, Albumin 3.7, Influenza Type A (RT-PCR) Not Detected, Influenza Type B (RT-PCR) Not Detected, SARS-CoV-2 RNA (RT-PCR) Not Detected 02/27/23 06:51: White Blood Count 8.3, Red Blood Count 3.77L, Hemoglobin 11.6, Hematocrit 34L, Mean Corpuscular Volume 91, Mean Corpuscular Hemoglobin 31, Mean Corpuscular Hemoglobin Concent 34, Red Cell Distribution Width 16.2H, Platelet Count 265, Mean Platelet Volume 10.5, Immature Granulocyte % (Auto) 1, Neutrophils (%) (Auto) 77H, Lymphocytes (%) (Auto) 10L, Monocytes (%) (Auto) 12, Eosinophils (%) (Auto) 2, Basophils (%) (Auto) 0, Neutrophils # (Auto) 6.3, Lymphocytes # (Auto) 0.8L, Monocytes # (Auto) 1.0, Eosinophils # (Auto) 0.1, Basophils # (Auto) 0.0, Immature Granulocyte # (Auto) 0.0, Sodium Level 132L, Potassium Level 3.1L, Chloride Level 98, Carbon Dioxide Level 23, Anion Gap 11, Blood Urea Nitrogen 8, Creatinine 0.71, Estimat Glomerular Filtration Rate 109, BUN/Creatinine Ratio 11, Glucose Level 105, Calcium Level 6.1L, Corrected Calcium 6.8L, Magnesium Level 2.1, Total Bilirubin 0.5, Aspartate Amino Transf (AST/SGOT) 21, Alanine Aminotransferase (ALT/SGPT) 13, Alkaline Phosphatase 98, Total Protein 6.3L, Albumin 3.1L Physical Exam-([facility]) Physical Exam Vital Signs VS - Last 72 Hours, by Label 02/26/23 02/26/23 02/26/23 02/26/23 11:42 15:00 15:02 16:08 Temp 36.8 36.8 Pulse 112 99 97 Resp 16 16 B/P (MAP) 114/61 (78) 114/61 Pulse Ox 98 93 O2 Delivery Room Air Room Air 02/26/23 02/26/23 02/26/23 02/26/23 16:31 19:00 19:28 20:00 Temp 36.9 Pulse 110 106 Resp 16 B/P (MAP) 94/52 (66) Pulse Ox 93 O2 Delivery Room Air Room Air Nasal Cannula O2 Flow Rate 2.00 02/26/23 02/27/23 02/27/23 02/27/23 20:10 00:00 01:00 03:25 Temp 37.0 36.3 36.2 Pulse 100 87 84 86 Resp 18 18 18 B/P (MAP) 105/67 (80) 92/56 (68) 95/59 (71) Pulse Ox 95 96 96 O2 Delivery Nasal Cannula Nasal Cannula Nasal Cannula O2 Flow Rate 2.00 2.00 02/27/23 02/27/23 02/27/23 02/27/23 07:49 08:17 08:23 10:24 Temp 36.2 Pulse 92 84 Resp 16 B/P (MAP) 95/56 (69) Pulse Ox 92 O2 Delivery Room Air Room Air O2 Flow Rate 0.00 02/27/23 11:43 Temp 36.5 Pulse 84 Resp 16 B/P (MAP) 94/55 (68) Pulse Ox 93 O2 Delivery Room Air Capillary Refill : Less Than 3 Seconds General Appearance: no apparent distress HEENT: normal ENT inspection Neck: full range of motion Respiratory: chest non-tender, normal breath sounds, no respiratory distress, no accessory muscle use Cardiovascular: regular rate, rhythm, no edema, no murmur Gastrointestinal: normal bowel sounds, non tender, no organomegaly Extremities: normal range of motion Neurologic/Psychiatric: alert, oriented x 3 Skin: normal color Assessment/Plan Assessment/Plan Admission Status: Observation (1) Diarrhea Status: Resolved Assessment & Plan: Likely secondary to viral infection given elevated CRP and respiratory symptoms of cough, sore throat in addition to diarrhea. Leukocytosis resolved this AM and patient clinically feeling better. Plan: -Will discontinue fluids today -Encourage oral fluid intake -Follow up C. diff test Qualifiers: Qualified Codes: R19.7 - Diarrhea, unspecified (2) Hypokalemia Status: Acute Assessment & Plan: Numbness and muscle spasms likely secondary to hypokalemia and hypomagnesemia. Potassium improved from 2.2 to 3.1 Plan: -Monitor daily CMP -Will replete with oral potassium (3) Hypomagnesemia Status: Resolved Assessment & Plan: Resolved at this time. Improved with repletion from 0.8 to 2.2. Plan: -Continue to monitor Mg daily (4) Dehydration Status: Resolved Assessment & Plan: Fluids per above. DEBBIE JAIMES MD 02/27/23 1552: Home Medications Allergies Coded Allergies: Penicillins (Verified Allergy, Mild, HIVES, 02/26/23) sulfamethoxazole (Verified Allergy, Mild, HIVES, 02/26/23) trimethoprim (Verified Allergy, Mild, HIVES, 02/26/23) Supervisory-Addendum Brief Supervisory Addendum I personally performed the tolbert portions of the visit, discussed case with resident and concur with resident documentation of history, physical exam, assessment and treatment plan unless otherwise noted. Viral Gastroenteritis Hypokalemia Hypomagnesium Electrolytes replenished and patient tolerating PO diet and hydration. Ok to d/c today DUSTIN GILL MD, RESIDENT Feb 27, 2023 06:22 DEBBIE JAIMES MD Feb 27, 2023 15:52
[2023-02-27 07:00] LABS: BASOPHILS % (AUTO) 0 % (0-10); EOSINOPHILS # (AUTO) 0.1 10^3/uL (0.0-0.3); EOSINOPHILS % (AUTO) 2 % (0-10); HEMATOCRIT 34 % (35-52); HEMOGLOBIN 11.6 g/dL (11.5-16.0); LYMPHOCYTES # (AUTO) 0.8 10^3/uL (1.0-4.0); LYMPHOCYTES % (AUTO) 10 % (12-44); MEAN CORPUSCULAR HEMOGLOBIN 31 pg (25-34); MEAN CORPUSCULAR HGB CONC 34 g/dL (32-36); MEAN CORPUSCULAR VOLUME 91 fL (80-99); MEAN PLATELET VOLUME 10.5 fL (9.0-12.2); MONOCYTES % (AUTO) 12 % (0-12); NEUTROPHILS # (AUTO) 6.3 10^3/uL (1.8-7.8); NEUTROPHILS % (AUTO) 77 % (42-75); PLATELET COUNT 265 10^3/uL (130-400); WHITE BLOOD COUNT 8.3 10^3/uL (4.3-11.0)
[2023-02-27 07:19] LABS: ALBUMIN 3.1 GM/DL (3.2-4.5); BILIRUBIN,TOTAL 0.5 MG/DL (0.1-1.0); CALCIUM 6.1 MG/DL (8.5-10.1); CREATININE SERUM 0.71 MG/DL (0.60-1.30); MAGNESIUM 2.1 MG/DL (1.6-2.4); POTASSIUM 3.1 MMOL/L (3.6-5.0); TOTAL PROTEIN 6.3 GM/DL (6.4-8.2)
[2023-02-27] MEDS: PANTOPRAZOLE INJECTION 40 MG VIAL IV SCH (07:51)
[2023-02-27 08:23] VITALS: BP 95/56
[2023-02-27] MEDS ORDERED: BENZ-36 PO (09:16)
[2023-02-27] MEDS ORDERED: FAMO10TA43 PO (09:16)
[2023-02-27] MEDS ORDERED: MULT-141 PO (09:16)
[2023-02-27] MEDS ORDERED: DEXT10CA18 PO (09:16)
[2023-02-27] MEDS ORDERED: PRAZ1CAP2 PO (09:16)
[2023-02-27] MEDS ORDERED: BUSP30TA2 PO (09:16)
[2023-02-27] MEDS ORDERED: IBUP-2473 PO (09:16)
[2023-02-27] MEDS ORDERED: MIRT-69 PO (09:16)
[2023-02-27] MEDS ORDERED: POTASSIUM CHLORIDE 20 MEQ TABLET PO ONE ×2 (10:00)
[2023-02-27] MEDS ORDERED: POTASSIUM CHLORIDE 20 MEQ TABLET PO NR ×2 (10:30→12:30)
[2023-02-27 11:43] VITALS: BP 94/55
[2023-02-27] MEDS ORDERED: oxyCODONE IMMEDIATE RELEASE 5 MG TABLET PO PRN (12:45)
[2023-02-27] MEDS ORDERED: NALOXONE 0.4 MG/ML 1 ML VIAL IV PRN (12:45)
[2023-02-27] MEDS ORDERED: ACETAMINOPHEN 500 MG TABLET PO SCH (14:00)
--- NOTE | 2023-02-27 14:00 | Discharge Summary ---
DUSTIN GILL MD, RESIDENT 02/27/23 1400: Discharge Summary Hospital Course Problems Reviewed?: Yes Problems/Diagnosis: (1) Diarrhea Status: Resolved Resolution Date/Time: 02/27/23 @ 13:55 Assessment & Plan: Likely secondary to viral infection given elevated CRP and respiratory symptoms of cough, sore throat in addition to diarrhea. Leukocytosis resolved this AM and patient clinically feeling better. Plan: -Fluids discontinued and patient tolerated oral intake -Follow up C. diff test if able to obtain Qualifiers: Qualified Codes: R19.7 - Diarrhea, unspecified (2) Hypokalemia Status: Acute Assessment & Plan: Numbness and muscle spasms likely secondary to hypokalemia and hypomagnesemia. Potassium improved from 2.2 to 3.1 Plan: -Monitor daily CMP -Repleted with oral potassium (3) Hypomagnesemia Status: Resolved Resolution Date/Time: 02/27/23 @ 10:04 Assessment & Plan: Resolved at this time. Improved with repletion from 0.8 to 2.2. Plan: -Continue to monitor Mg daily (4) Dehydration Status: Resolved Resolution Date/Time: 02/27/23 @ 13:59 Assessment & Plan: Resolved with IV and oral fluid resuscitation. Hospital Course Date of Admission: Feb 26, 2023 at 14:52 Admission Diagnosis : Family Physician/Provider: Mirella Elena Aprn Date of Discharge: 02/27/23 Discharge Diagnosis: [Diarrhea] Hospital Course: [Patient states she was in her usual state of health until Friday morning when she began having numbness in her face, hands and feet as well as muscle cramping. She notes she was having watery diarrhea but had too many episodes to count. On presentation to the ED, patient was noted to be hypokalemic and have low magnesium and thus was admitted for further management and observation. Patient was rehydrated with fluids and electrolyte abnormalities were repleted. Diarrhea ultimately resolved. An attempt was made to obtain C. diff testing due to patient recently being on antibiotics but sample could not be obtained as diarrhea had resolved. Patient felt well and was stable for discharge home.] Labs and Pending Lab Test: Laboratory Tests 02/27/23 06:51: White Blood Count 8.3, Red Blood Count 3.77L, Hemoglobin 11.6, Hematocrit 34L, Mean Corpuscular Volume 91, Mean Corpuscular Hemoglobin 31, Mean Corpuscular Hemoglobin Concent 34, Red Cell Distribution Width 16.2H, Platelet Count 265, Mean Platelet Volume 10.5, Immature Granulocyte % (Auto) 1, Neutrophils (%) (Auto) 77H, Lymphocytes (%) (Auto) 10L, Monocytes (%) (Auto) 12, Eosinophils (%) (Auto) 2, Basophils (%) (Auto) 0, Neutrophils # (Auto) 6.3, Lymphocytes # (Auto) 0.8L, Monocytes # (Auto) 1.0, Eosinophils # (Auto) 0.1, Basophils # (Auto) 0.0, Immature Granulocyte # (Auto) 0.0, Sodium Level 132L, Potassium Level 3.1L, Chloride Level 98, Carbon Dioxide Level 23, Anion Gap 11, Blood Urea Nitrogen 8, Creatinine 0.71, Estimat Glomerular Filtration Rate 109, BUN/Creatinine Ratio 11, Glucose Level 105, Calcium Level 6.1L, Corrected Calcium 6.8L, Magnesium Level 2.1, Total Bilirubin 0.5, Aspartate Amino Transf (AST/SGOT) 21, Alanine Aminotransferase (ALT/SGPT) 13, Alkaline Phosphatase 98, Total Protein 6.3L, Albumin 3.1L Home Meds Active Reported Prazosin HCl 1 Mg Capsule 1 Mg PO HS Pepcid AC (Famotidine) 10 Mg Tablet 10 Mg PO DAILY PRN Women's Daily Formula (Multivit with Calcium,Iron,Min) 27 Mg-0.4 Mg Tablet 1 Each PO DAILY Mirtazapine 30 Mg Tablet 30 Mg PO HS Benzonatate 100 Mg Capsule 100 Mg PO TID PRN Dextroamp-Amphet ER 10 mg Cap (Dextroamphetamine/Amphetamine) 10 Mg Cap.er.24h 10 Mg PO DAILY Ibuprofen 200 Mg Tablet 600 Mg PO Q6H PRN Buspirone HCl 30 Mg Tablet 30 Mg PO BID PRN Assessment/Pt DC Instructions Please see electronic discharge instructions given to patient. Discharge Diet: No Restrictions Activity as Tolerated: Yes Discharge Physical Examination Allergies: Coded Allergies: Penicillins (Verified Allergy, Mild, HIVES, 02/26/23) sulfamethoxazole (Verified Allergy, Mild, HIVES, 02/26/23) trimethoprim (Verified Allergy, Mild, HIVES, 02/26/23) General Appearance: No Apparent Distress HEENT: Normal ENT Inspection Respiratory: Chest Non Tender, Lungs Clear, Normal Breath Sounds, No Accessory Muscle Use, No Respiratory Distress Cardiovascular: Regular Rate, Rhythm, No Edema, No Murmur Gastrointestinal: Normal Bowel Sounds, Non Tender, Soft Extremity: No Pedal Edema Skin: Normal Color Neurologic/Psychiatric: Alert, Oriented x3 DEBBIE JAIMES MD 02/27/23 1553: Discharge Summary Discharge Physical Examination Allergies: Coded Allergies: Penicillins (Verified Allergy, Mild, HIVES, 02/26/23) sulfamethoxazole (Verified Allergy, Mild, HIVES, 02/26/23) trimethoprim (Verified Allergy, Mild, HIVES, 02/26/23) Supervisory-Addendum Brief Supervisory Addendum I personally performed the tolbert portions of the visit, discussed case with resident and concur with resident documentation of history, physical exam, assessment and treatment plan unless otherwise noted. See H&P DUSTIN GILL MD, RESIDENT Feb 27, 2023 14:00 DEBBIE JAIMES MD Feb 27, 2023 15:53
[2023-02-27 14:37] VITALS: BP 94/55
== END 2023-02-27 14:30 | disposition home or self-care (01) ==
LOC: EDUNIT# 11:30 → ER 11:33 → UNDOADMOB 14:52 → 4TH 14:52 → UNDODISOB 02-27 14:30
PROVIDERS: ADMIT Family Medicine; ATTEND Family Medicine
DX: R19.7 Diarrhea, unspecified (principal); E87.6 Hypokalemia; E83.42 Hypomagnesemia; E86.0 Dehydration; F17.210 Nicotine dependence, cigarettes, uncomplicated; Z28.310 Unvaccinated for COVID-19
CPT/HCPCS: 80053 ×2; 83735 ×2; 85007; 85025; 85027; 86141; 87636; 96366; 96372; 96375; 96376 ×2; 99284; G0378; 36415; 96361; 96374

== ENCOUNTER 2023-04-05 13:49 | Emergency (ER) | payer OTHER ==
[~2023-04-05] VITALS: Ht 170.2 cm; Wt 72.5 kg
[~2023-04-05 13:49] MED LIST changes: +BENZ-36 PO; +BUSP30TA2 PO; +DEXT10CA18 PO; +FAMO10TA43 PO; +IBUP-2473 PO; +MIRT-69 PO; +MULT-141 PO; +PRAZ1CAP2 PO
--- NOTE | 2023-04-05 14:10 | ED GI ---
General Chief Complaint: Abdominal/GI Problems Stated Complaint: FACE/MOUTH/FEET NUMBNESS Source of Information: Patient Exam Limitations: No Limitations History of Present Illness Date Seen by Provider: Apr 05, 2023 Time Seen by Provider: 13:53 Initial Comments 42-year-old female presents to the emergency department today for nausea v omiting diarrhea, hand and foot numbness. She states she had similar symptoms recently and was admitted to the hospital for hypokalemia, potassium was 2.2 at that time. She denies any fevers or chills. She has a child at home who was diagnosed with rotavirus and thinks she may have caught the same GI illness. She has diffuse abdominal tenderness without any focal pain. She has nausea and intermittent nonbilious nonbloody vomiting. All other systems reviewed and negative except documented per HPI. Voice recognition software was used to help create this chart Allergies and Home Medications Allergies Coded Allergies: Penicillins (Verified Allergy, Mild, HIVES, 02/26/23) sulfamethoxazole (Verified Allergy, Mild, HIVES, 02/26/23) trimethoprim (Verified Allergy, Mild, HIVES, 02/26/23) Patient Home Medication List Home Medication List Reviewed: Yes Benzonatate (Benzonatate) 100 Mg Capsule, 100 MG PO TID PRN for COUGH, (Reported) Entered as Reported by: ELIDIA RIVAS on 02/27/23915 Buspirone HCl (Buspirone HCl) 30 Mg Tablet, 30 MG PO BID PRN for ANXIETY, (Reported) Entered as Reported by: ELIDIA RIVAS on 02/27/23915 Dextroamphetamine/Amphetamine (Dextroamp-Amphet ER 10 mg Cap) 10 Mg Cap.er.24h, 10 MG PO DAILY, (Reported) Entered as Reported by: ELIDIA RIVAS on 02/27/23915 Famotidine (Pepcid AC) 10 Mg Tablet, 10 MG PO DAILY PRN for HEARTBURN, (Reported) Entered as Reported by: ELIDIA RIVAS on 02/27/23915 Ibuprofen (Ibuprofen) 200 Mg Tablet, 600 MG PO Q6H PRN for PAIN-MILD (1-4), (Reported) Entered as Reported by: ELIDIA RIVAS on 02/27/23915 Mirtazapine (Mirtazapine) 30 Mg Tablet, 30 MG PO HS, (Reported) Entered as Reported by: ELIDIA RIVAS on 02/27/23915 Multivit with Calcium,Iron,Min (Women's Daily Formula) 27 Mg-0.4 Mg Tablet, 1 EACH PO DAILY, (Reported) Entered as Reported by: ELIDIA RIVAS on 02/27/23915 Ondansetron (Ondansetron Odt) 8 Mg Tab.rapdis, 8 MG SL Q6H PRN for NAUSEA/VOMITING Prescribed by: VIN GRANGER MD on 04/05/23 1448 Prazosin HCl (Prazosin HCl) 1 Mg Capsule, 1 MG PO HS, (Reported) Entered as Reported by: ELIDIA RIVAS on 02/27/23915 Review of Systems Review of Systems Constitutional: see HPI Past Byrwjdi-Tzzbfo-Bbyzmm Hx Patient Social History Tobacco Use?: Yes Smoking Status: Current Everyday Smoker Use of E-Cig and/or Vaping dev: No Substance use?: No Alcohol Use?: Yes Alcohol Frequency: Once in a while Pt feels they are or have been: No Immunizations Up To Date Tetanus Booster (TDap): Unknown First/Initial COVID19 Vaccinat: NO Second COVID19 Vaccination Pavel: NO Third COVID19 Vaccination Date: NO Seasonal Allergies Seasonal Allergies: Yes Past Medical History Surgery/Hospitalization HX: barrets espohagus, depression, anxiety, adhd, migraines, rbbb sx: t/a, hysterectomy Surgeries: Yes (WRIST) Appendectomy, Gallbladder, Hysterectomy, Oophorectomy, Tonsillectomy Respiratory: No Pneumonia, Sleep Apnea Cardiac: No Neurological: Yes Headaches /Migraines 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 Disorders: Yes (MULTIPLE LAPAROSCOPIES; HYST/BSO FOR BENIGN DISEASE) Female 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 Disorders: Denies 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 Sexually Transmitted Disease: No HIV/AIDS: No Genitourinary: Yes Kidney Stones Gastrointestinal: Yes Gastroesophageal Reflux, Ny's Esophagus, Chronic Diarrhea Musculoskeletal: Yes Arthritis, Chronic Back Pain Endocrine: No HEENT: Yes (GLASSES) Loss of Vision: Denies Hearing Impairment: Denies Cancer: No Psychosocial: Yes ADD/ADHD, Anxiety, Depression Integumentary: No Blood Disorders: Yes (HX ANEMIA) Adverse Reaction/Blood Tranf: No (N/A) Family Medical History SOCIAL HISTORY: -SMOKES 1/2 PPD -ETOH--DRINKS AT LEAST 4 TIMES A WEEK -DRUGS--DENIES USE BUT UDS + FOR THC Physical Exam Vital Signs Vital Signs - First Documented 04/05/23 13:54 Temp 37.2 Pulse 115 Resp 20 B/P (MAP) 119/74 (89) Pulse Ox 96 O2 Delivery Room Air Capillary Refill : Height/Weight/BMI Height: 5'7.00" Weight: 119lbs. 0.0oz. 53.247596kw; 25.05 BMI Method:Stated General Appearance: WD/WN, no apparent distress HEENT: normal ENT inspection, pharynx normal Neck: full range of motion, supple Respiratory: chest non-tender, lungs clear, normal breath sounds, no respiratory distress, no accessory muscle use Cardiovascular: no murmur, tachycardia Gastrointestinal: normal bowel sounds, non tender, soft, no organomegaly Extremities: normal range of motion, non-tender, normal inspection, normal capillary refill Neurologic/Psychiatric: alert, oriented x 3 Skin: normal color, warm/dry Progress/Results/Core Measures Results/Orders Lab Results Laboratory Tests Test 04/05/23 14:00 Range/Units White Blood Count 16.4 H 4.3-11.0 10^3/uL Red Blood Count 4.10 3.80-5.11 10^6/uL Hemoglobin 13.2 11.5-16.0 g/dL Hematocrit 40 35-52 % Mean Corpuscular Volume 97 80-99 fL Mean Corpuscular Hemoglobin 32 25-34 pg Mean Corpuscular Hemoglobin Concent 33 32-36 g/dL Red Cell Distribution Width 16.1 H 10.0-14.5 % Platelet Count 433 H 130-400 10^3/uL Mean Platelet Volume 10.0 9.0-12.2 fL Immature Granulocyte % (Auto) 1 % Neutrophils (%) (Auto) 85 H 42-75 % Lymphocytes (%) (Auto) 9 L 12-44 % Monocytes (%) (Auto) 5 0-12 % Eosinophils (%) (Auto) 0 0-10 % Basophils (%) (Auto) 0 0-10 % Neutrophils # (Auto) 13.9 H 1.8-7.8 10^3/uL Lymphocytes # (Auto) 1.5 1.0-4.0 10^3/uL Monocytes # (Auto) 0.9 0.0-1.0 10^3/uL Eosinophils # (Auto) 0.0 0.0-0.3 10^3/uL Basophils # (Auto) 0.0 0.0-0.1 10^3/uL Immature Granulocyte # (Auto) 0.1 0.0-0.1 10^3/uL Neutrophils % (Manual) 84 % Lymphocytes % (Manual) 7 % Monocytes % (Manual) 5 % Eosinophils % (Manual) 0 % Basophils % (Manual) 0 % Band Neutrophils 4 % Anisocytosis SLIGHT Sodium Level 131 L 135-145 MMOL/L Potassium Level 3.1 L 3.6-5.0 MMOL/L Chloride Level 88 L 98-107 MMOL/L Carbon Dioxide Level 25 21-32 MMOL/L Anion Gap 18 H 5-14 MMOL/L Blood Urea Nitrogen 9 7-18 MG/DL Creatinine 0.73 0.60-1.30 MG/DL Estimat Glomerular Filtration Rate 106 BUN/Creatinine Ratio 12 Glucose Level 113 H 70-105 MG/DL Calcium Level 7.7 L 8.5-10.1 MG/DL Corrected Calcium 7.8 L 8.5-10.1 MG/DL Magnesium Level 1.0 *L 1.6-2.4 MG/DL Total Bilirubin 0.9 0.1-1.0 MG/DL Aspartate Amino Transf (AST/SGOT) 34 5-34 U/L Alanine Aminotransferase (ALT/SGPT) 20 0-55 U/L Alkaline Phosphatase 161 H 40-136 U/L Total Protein 8.3 H 6.4-8.2 GM/DL Albumin 3.9 3.2-4.5 GM/DL My Orders Orders - VIN GRANGER DO Comprehensive Metabolic Panel (04/05/23 14:06) Magnesium (04/05/23 14:06) Cbc And Automated Diff (04/05/23 14:06) Ns Iv 1000 Ml (Ns Iv 1000 Ml) (04/05/23 14:15) Ed Iv/Invasive Line Start (04/05/23 14:06) Ondansetron Injection (Ondansetron Inj (04/05/23 14:15) Manual Differential (04/05/23 14:00) Potassium Chloride (Tablet) (Potassium C (04/05/23 14:33) Magnesium Oxide Tablet (Magnesium Oxide (04/05/23 15:00) Promethazine Tablet (Promethazine Tabl (04/05/23 15:30) Medications Given in ED Current Medications Medications Dose Ordered Sig/Regla Route Start Time Stop Time Status Last Admin Dose Admin Magnesium Oxide 400 mg ONCE ONCE PO 04/05/23 15:00 04/05/23 15:01 DC 04/05/23 15:09 400 MG Ondansetron HCl 8 mg ONCE ONCE IVP 04/05/23 14:15 04/05/23 14:16 DC 04/05/23 14:18 8 MG Promethazine HCl 25 mg ONCE ONCE PO 04/05/23 15:30 04/05/23 15:31 DC 04/05/23 15:40 25 MG Vital Signs/I&O 04/05/23 04/05/23 13:54 15:40 Temp 37.2 Pulse 115 Resp 20 B/P (MAP) 119/74 (89) 115/81 Pulse Ox 96 O2 Delivery Room Air Departure Communication (Admissions) Patient has mild hypokalemia, hypocalcemia. Also significant hypomagnesemia. She is given oral calcium potassium and magnesium. She is given strict return precautions. She is hemodynamically stable otherwise. She is on p.o. potassium at home, advised her to increase from 4 tablets daily to 6 tablets daily during her vomiting, diarrheal illness. I did recommend she take Imodium [id number] to help with diarrhea. She is given nausea medicine, Zofran, to go home with. Questions were sought and answered. She is discharged in stable condition. Impression Primary Impression: Hypokalemia Additional Impressions: Hypocalcemia Vomiting Qualified Codes: R11.10 - Vomiting, unspecified Diarrhea Qualified Codes: R19.7 - Diarrhea, unspecified Hypomagnesemia Disposition: HOME, SELF-CARE Condition: Stable Departure-Patient Inst. Referrals: TOMY TALAVERA APRN (PCP/Family) Primary Care Physician Patient Instructions: Hypokalemia (DC), Nausea and Vomiting, Adult (DC) Add. Discharge Instructions: Increase your fluids at home. Have your potassium and magnesium rechecked with your primary doctor on Friday or Friday. Increase green leafy vegetables in your diet in the interim. Use nausea medicines as prescribed as needed. Your calcium is slightly low. Either clam picker a calcium supplement [id number] or take Tums a couple of times a day. Increasing calcium in your diet may cause constipation. If you do experience this to take MiraLAX, 1 capful dissolved in liquid once a day. Return to the emergency department for any severe concerns. Follow-up with your primary doctor for any nonemergent needs. All discharge instructions reviewed with patient and/or family. Voiced understanding. Scripts Ondansetron (Ondansetron Odt) 8 Mg Tab.rapdis 8 MG SL Q6H PRN for NAUSEA/VOMITING for 3 Days, #12 TAB Prov: VIN GRANGER DO 04/05/23 VIN GRANGER DO Apr 05, 2023 14:09
[2023-04-05 14:15] LABS: BASOPHILS % (AUTO) 0 % (0-10); EOSINOPHILS % (AUTO) 0 % (0-10); HEMATOCRIT 40 % (35-52); HEMOGLOBIN 13.2 g/dL (11.5-16.0); LYMPHOCYTES # (AUTO) 1.5 10^3/uL (1.0-4.0); LYMPHOCYTES % (AUTO) 9 % (12-44); MEAN CORPUSCULAR HEMOGLOBIN 32 pg (25-34); MEAN CORPUSCULAR HGB CONC 33 g/dL (32-36); MEAN CORPUSCULAR VOLUME 97 fL (80-99); MONOCYTES # (AUTO) 0.9 10^3/uL (0.0-1.0); MONOCYTES % (AUTO) 5 % (0-12); NEUTROPHILS # (AUTO) 13.9 10^3/uL (1.8-7.8); NEUTROPHILS % (AUTO) 85 % (42-75); PLATELET COUNT 433 10^3/uL (130-400); WHITE BLOOD COUNT 16.4 10^3/uL (4.3-11.0)
[2023-04-05] MEDS ORDERED: NS IV 1000 ML 1,000 ML IV SCH (14:15)
[2023-04-05] MEDS ORDERED: ONDANSETRON INJECTION 4 MG/2 ML (SDV) IVP ONE (14:15)
[2023-04-05 14:20] LABS: ALBUMIN 3.9 GM/DL (3.2-4.5); POTASSIUM 3.1 MMOL/L (3.6-5.0)
[2023-04-05 14:21] LABS: CALCIUM 7.7 MG/DL (8.5-10.1)
[2023-04-05 14:22] LABS: TOTAL PROTEIN 8.3 GM/DL (6.4-8.2)
[2023-04-05 14:24] LABS: BILIRUBIN,TOTAL 0.9 MG/DL (0.1-1.0)
[2023-04-05 14:26] LABS: CREATININE SERUM 0.73 MG/DL (0.60-1.30)
[2023-04-05] MEDS ORDERED: POTASSIUM CHLORIDE 20 MEQ TABLET PO STA (14:33)
[2023-04-05] MEDS ORDERED: ONDA8TAB13 SL (14:48)
[2023-04-05 14:59] LABS: ANISOCYTOSIS SLIGHT; BAND NEUTROPHILS 4 %; BASOPHILS % (MANUAL) 0 %; EOSINOPHILS % (MANUAL) 0 %; LYMPHOCYTES % (MANUAL) 7 %; MONOCYTES % (MANUAL) 5 %; NEUTROPHILS % (MANUAL) 84 %
[2023-04-05] MEDS ORDERED: MAGNESIUM OXIDE 400 MG TABLET PO ONE (15:00)
[2023-04-05] MEDS ORDERED: PROMETHAZINE 25 MG TABLET PO ONE (15:30)
[2023-04-05 15:40] VITALS: BP 115/81
== END 2023-04-05 15:40 | disposition home or self-care (01) ==
LOC: EDUNIT# 13:49 → ER 13:51
DX: E87.6 Hypokalemia (principal); E83.51 Hypocalcemia; E83.42 Hypomagnesemia; R19.7 Diarrhea, unspecified; F17.210 Nicotine dependence, cigarettes, uncomplicated
CPT/HCPCS: 36415; 80053; 83735; 85007; 85027